=== PATIENT | female | born 1980 | race Caucasian/White ===

== ENCOUNTER → 2022-05-16 09:39 | Outpatient (CLI) | payer MEDICAID, SELFPAY ==
--- NOTE | ~2022-05-16 | MR_ITS ---
EXAMINATION: MR abdomen wo/w con DATE: 05/16/2022 11:27 INDICATION: Abdominal pain TECHNIQUE: Magnetic resonance imaging (MRI) of the abdomen was performed without and with 12 mL Multi ace intravenous contrast. Sequences included coronal T2-weighted SS-FSE, coronal and axial FS 2D-F IESTA, axial STIR FSE, axial T2-weighted SS-FSE, axial T2-weighted FS SS-FSE, axial diffusion-weighte d SE, axial dual-echo T1-weighted FSPGR, and axial and coronal T1-weighted LAVA. Postcontrast axial T 1-weighted LAVA images were obtained in a time course. Postcontrast coronal T1-weighted LAVA images w ere obtained. COMPARISON: None. FINDINGS: Heart size is normal. No pericardial or pleural effusion. Liver, gallbladder, spleen, pancreas, bilat eral adrenal glands and kidneys are normal. There is irregular enhancing wall thickening along a segm ent of sigmoid colon concerning for colon cancer with differential including focal colitis/diverticul itis. No dilated bowel to suggest obstruction. Fat-containing umbilical hernia. 3.8 x 3.1 cm peripher ally enhancing centrally nonenhancing cavitary presacral mass seen on the coronal images. 2.6 cm righ t ovarian cyst/follicle. No pathologically enlarged abdominal lymphadenopathy. Mild lumbar spondylosi s. IMPRESSION: 1. Segmental wall thickening along the sigmoid colon suspicious for colon cancer with differential in cluding focal colitis/diverticulitis. Recommend colonoscopy for further evaluation. 2. Indeterminate 3.8 cm peripherally enhancing centrally cavitary lesion anterior to the sacrum poten tially metastatic disease or abscess. 3. Fat-containing umbilical hernia. Reviewed, dictated and finalized at location B. IMPRESSION: 1. Segmental wall thickening along the sigmoid colon suspicious for colon cance r with differential including focal colitis/diverticulitis. Recommend colonosco py for further evaluation. 2. Indeterminate 3.8 cm peripherally enhancing centrally cavitary lesion anteri or to the sacrum potentially metastatic disease or abscess. 3. Fat-containing umbilical hernia.
--- NOTE | ~2022-05-16 | MR_ITS ---
MRI of the pelvis CLINICAL HISTORY: Left adnexal mass TECHNIQUE: T2-weighted images, and coronal T2-weighted and T2 fat-sat images were performed. Axial T2 -weighted, T2 fat-sat, T1-weighted, T1 fat-sat, and diffusion-weighted images were performed. Followi ng intravenous administration of 12 cc MultiHance gadolinium, T1-weighted fat-sat imaging was perform ed in the axial and coronal planes. FINDINGS: There is a 3.6 x 3.0 x 3.5 cm rounded mass in the presacral region, just anterior to the S1 vertebral body (series 17 image 19). This is T1 hypointense, and of intermediate signal intensity on T2-weighted images. There is minimal if any postcontrast enhancement evident. Incidentally noted is apparent circumferential wall thickening at the distal sigmoid colon/proximal r ectum (series 19 images 17-20 for example), suspicious for colonic adenocarcinoma. Uterus is anteverted. Several small intramural fibroids are present, largest at the posterior wall me asuring 2.1 cm in diameter. No distinct junctional zone thickening seen. No abnormal endometrial thic kening evident. Small bilateral ovarian/adnexal cysts are present, largest on the right side measuring 2 cm in diamet er. No ascites. Urinary bladder unremarkable. Visualized osseous structures are intact. Visualized bowel loops unrema rkable. IMPRESSION: 3.6 x 3.0 x 3.5 cm presacral mass, which correlates with finding on recent outside ultrasound. Given additional finding of circumferential wall thickening at the distal sigmoid colon/proximal rectum, fi ndings are most suspicious for colonic adenocarcinoma with associated metastatic presacral lesion. Small uterine fibroids, as above. Reviewed, dictated and finalized at [facility]. IMPRESSION: 3.6 x 3.0 x 3.5 cm presacral mass, which correlates with finding on recent outs reece ultrasound. Given additional finding of circumferential wall thickening at the distal sigmoid colon/proximal rectum, findings are most suspicious for colo humberto adenocarcinoma with associated metastatic presacral lesion. Small uterine fibroids, as above.
== END ==
PROVIDERS: PCP Obstetrics & Gynecology; Visit Provider Obstetrics & Gynecology
DX: N94.89 Other specified conditions associated with female genital organs and menstrual cycle (principal); R10.9 Unspecified abdominal pain; R93.5 Abnormal findings on diagnostic imaging of other abdominal regions, including retroperitoneum; K42.9 Umbilical hernia without obstruction or gangrene; D25.9 Leiomyoma of uterus, unspecified
CPT/HCPCS: 72197; 74183; A9577

== ENCOUNTER 2022-05-23 01:15 | Day surgery (SDC) | payer MEDICAID, SELFPAY ==
[2022-05-11 13:34] VITALS: BMI 23.9
[2022-05-23 12:20] VITALS: BP 135/92; PULSE 80; RESP 16; TEMP 36.3; O2SAT 100
[2022-05-23] MEDS: LACTATED RINGERS 1,000 ML 150 ML IV CONT (12:36)
--- NOTE | 2022-05-23 12:55 | WPDANESEPPF ---
Anes - Initial Pre Proc Eval Procedure: Operation Date: 05/23/22 13:30 Proposed Procedures p Colonoscopy - Reagan Cesar MD Date/Time: 05/23/22 12:55 Surgeon: Reagan Cesar MD Pre Op Diagnosis: pelvic and perineal pain Patient Data Age: 42 Gender: F Height: 1.6 m Weight: 57.9 kg Last Vital Signs Temp 97.4 F L 05/23/22 12:20 Pulse 80 05/23/22 12:20 Resp 16 05/23/22 12:20 BP 135/92 H 05/23/22 12:20 Pulse Ox 100 05/23/22 12:20 O2 Del Method Room Air 05/23/22 12:20 Allergies Allergy/AdvReac Type Severity Reaction Status Date / Time No Known Allergies Allergy Unknown Verified 05/23/22 12:17 Home Medications Medication Instructions Recorded Confirmed Type multivitamin (Multiple Vitamins 1 tablet PO DAILY 06/23/21 05/23/22 History tablet) drospirenone (contraceptive) 4 mg 1 tablet PO DAILY #28 tabs 05/06/22 05/23/22 Rx (28) tablet (Slynd) Patient hx anesthesia problems: none Family hx anesthesia problems: none Results Review: All pre-operative results and documents have been reviewed as part of the pre-operative evaluation. [facility] Past Medical History Medical History (Updated 05/11/22 @ 11:17 by Dm Trujillo) Abdominal pain Abnormal Pap smear of cervix 08/14/12 ASCUS (+) HPV - RECURRENT ABNORMAL HX Bone infection (~1979) Encounter for IUD insertion 03/02/07 Mirena insertion 02/15/12 Mirena removal/reinsertion-- IUD 12/28/17 Mirena removal/reinsertion-- IUD Encounter for IUD removal 02/15/12 Mirena removal/reinsertion-- IUD 12/28/17 Mirena removal/reinsertion-- IUD 07/17/18 Mirena removal Lymph node abscess (~1980) Miscarriage 06/04/05 suction d&c Screening mammogram, encounter for Staph infection (~09/2002) finger Surgical History Surgical History History of colposcopy with cervical biopsy 07/21/11 Family History Family History (Updated 04/20/22 @ 14:38 by KIT Castillo) Grandparent Diabetes mellitus maternal grandmother Hypertension maternal grandfather Carcinoma of colon maternal grandfather Father Alcohol abuse Cirrhosis of liver Other Malignant neoplasm of prostate Social History Social History Smoking status: Never smoker Alcohol intake: current Drinks per week: 2 Substance use: never Substance use type: does not use Living arrangements: with family Additional living arrangements comments: Occupation/Education: occupation 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 Gender identity (if verbalized by the patient): Female Sexual Orientation (if Verbalized by the Patient): Straight or Heterosexual Anes - Eval Final PreProcedure Day of Procedure 05/23/22 12:55 Patient weight: normal Heart: regular rate and rhythm Lungs: clear to auscultation Airway: Mallampati scale class II Neurological: alert and oriented Last oral intake: >/= 8 hours ASA classification: I Emergent: no Anesthetic plan: proceed Anesthesia type and monitoring: general GIVS and standard monitoring Results Review: All pre-operative results and documents have been reviewed as part of the pre-operative evaluation. Informed Consent: The patient's anesthetic plan and its attendant risks and benefits were discussed with the patient/family/POA. Questions were solicited and answers provided to the satisfaction of the patient/family/POA.
--- NOTE | 2022-05-23 13:07 | PM.HPGS ---
History of Present Illness History of Present Illness Consent: Risks, benefits, and alternatives have been discussed and questions answered. Patient agrees to proceed with procedure. Chief complaint: pelvic and perineal pain Narrative: Rodney Schultz is a 42 year old female pelvic pain, evaluated by [facility] and had MRI that showed segmental wall thickening along the sigmoid colon suspicious for colon cancer with differential including focal colitis/diverticulitis. Recommend colonoscopy for further evaluation. Never had colonoscopy Review of Systems Constitutional: Constitutional: Denies headache(s) and Denies weakness Eyes: Eyes: Denies blurry vision ENT: Reports Normal hearing present, Denies headache(s) and Denies neck pain Cardiovascular: Cardiovascular: Denies chest pain and Denies dyspnea Respiratory: Respiratory: Denies dyspnea Gastrointestinal: Gastrointestinal: Reports no additional gastrointestinal complaints Genitourinary: Genitourinary: Denies dysuria Musculoskeletal: Musculoskeletal: Denies neck pain Integumentary/Breasts: Skin/Breast: Denies dry skin Neurologic: Reports Normal hearing present, Denies headache(s) and Denies weakness Psychiatric: Psychiatric: Denies anxiety Endocrine: Endocrine: Denies change in body appearance Hematologic/Lymphatic: Hematologic/Lymphatic: Denies easy bleeding Allergic/Immunologic: Allergic/Immunologic: Denies urticaria PMFSH Past Medical History Medical History (Updated 05/23/22 @ 13:08 by Reagan Cesar MD) Abdominal pain Abnormal CT scan, colon Abnormal Pap smear of cervix 08/14/12 ASCUS (+) HPV - RECURRENT ABNORMAL HX Bone infection (~1979) Encounter for IUD insertion 03/02/07 Mirena insertion 02/15/12 Mirena removal/reinsertion-- IUD 12/28/17 Mirena removal/reinsertion-- IUD Encounter for IUD removal 02/15/12 Mirena removal/reinsertion-- IUD 12/28/17 Mirena removal/reinsertion-- IUD 07/17/18 Mirena removal Lymph node abscess (~1980) Miscarriage 06/04/05 suction d&c Screening mammogram, encounter for Staph infection (~09/2002) finger Surgical History Surgical History History of colposcopy with cervical biopsy 07/21/11 Family History Family History (Updated 04/20/22 @ 14:38 by KIT Castillo) Grandparent Diabetes mellitus maternal grandmother Hypertension maternal grandfather Carcinoma of colon maternal grandfather Father Alcohol abuse Cirrhosis of liver Other Malignant neoplasm of prostate Social History Social History Smoking status: Never smoker Alcohol intake: current Drinks per week: 2 Substance use: never Substance use type: does not use Living arrangements: with family Additional living arrangements comments: Occupation/Education: occupation 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 Gender identity (if verbalized by the patient): Female Sexual Orientation (if Verbalized by the Patient): Straight or Heterosexual Meds Home Medications and Allergies Home Medications Medication Instructions Recorded Confirmed Type multivitamin (Multiple Vitamins 1 tablet PO DAILY 06/23/21 05/23/22 History tablet) drospirenone (contraceptive) 4 mg 1 tablet PO DAILY #28 tabs 05/06/22 05/23/22 Rx (28) tablet (Slynd) Allergies Allergy/AdvReac Type Severity Reaction Status Date / Time No Known Allergies Allergy Unknown Verified 05/23/22 12:17 Vital Signs Vital Signs - 24 hr 05/23/22 12:20 Temperature 97.4 F L Pulse Rate 80 Respiratory Rate 16 Blood Pressure 135/92 H Pulse Oximetry 100 Oxygen Delivery Room Air Exam Const: General: comfortable and no acute distress HENMT: Face/Nose/Sinus: Normal nares present Eyes: General: appearance normal, both eyes and all related structures
[2022-05-23 13:29] VITALS: BP 117/81; PULSE 82; RESP 20; O2SAT 100
[2022-05-23 13:39] VITALS: BP 127/87; PULSE 70; RESP 20; O2SAT 100
[2022-05-23 13:49] VITALS: BP 139/94; PULSE 70; RESP 20; O2SAT 100
[2022-05-23 14:16] LABS: Hematocrit 34.3 % (37.0-47.0); Hemoglobin 10.7 g/dL (12.0-15.0); Mean Corpuscular HGB Conc 31.2 g/dl (32-36); Mean Corpuscular Hemoglobin 24.7 pg (26-34); Platelet Count Result 435 k/mm3 (150-375); Red Blood Count 4.34 M/mm3 (4.2-5.4); White Blood Count 4.8 K/mm3 (4.5-10.0)
[2022-05-23 14:27] LABS: Alanine Aminotransferase 20 U/L (6-35); Albumin Level 4.6 g/dL (3.5-5.1); Alkaline Phosphatase 83 U/L (38-126); Anion Gap 9 mmol/L (8-16); Aspartate Amino Transferase 24 U/L (14-36); Bilirubin,Total 0.8 mg/dL (0.2-1.3); Blood Urea Nitrogen 14 mg/dL (7-17); Calcium 8.9 mg/dL (8.4-10.2); Carbon Dioxide 22 mmol/L (22-30); Chloride 105 mmol/L (98-107); Estimated CRCL calculation 84 ml/min; Estimated Glomerular Filt Rate > 60; Glucose 81 mg/dL (65-110); Potassium 4.3 mmol/L (3.4-5.0); Sodium 136 mmol/L (137-145)
[2022-05-23 14:58] LABS: Carcinoembryonic Antigen 33.4 ng/mL (0.0-3.0)
[2022-05-23 15:36] LABS: INR 1.2; Prothrombin Time 14.5 Seconds (11.1-14.7)
== END 2022-05-23 14:11 | disposition home or self-care (01) ==
PROVIDERS: Visit Provider Internal Medicine Gastroenterology
PROC: 0DJD8ZZ Inspection of Lower Intestinal Tract, Via Natural or Artificial Opening Endoscopic (ICD-10-PCS; CPT 45378; principal; 2022-05-23 13:30)
DX: C18.7 Malignant neoplasm of sigmoid colon (principal)
CPT/HCPCS: 45335; 45331; 36415; 80053; 82378; 85027; 85610; 88305; J2704; J7120

== ENCOUNTER 2022-05-30 07:49 | Outpatient (CLI) | payer MEDICAID, SELFPAY ==
--- NOTE | 2022-05-30 08:31 | ECG_ITS ---
Measurements Intervals [place] Rate: 66 P: 60 CA: 159 QRS: 10 QRSD: 99 T: 37 QT: 437 QTc: 458 Interpretive Statements SINUS RHYTHM POSSIBLE LEFT ATRIAL ENLARGEMENT [- INCOMPLETE RIGHT BUNDLE BRANCH BLOCK BASELINE ARTIFACT- I, II, III, AVR, AVL, AVF BORDERLINE ECG NO PREVIOUS ECG AVAILABLE FOR COMPARISON Electronically Signed On 05-30-2022 9:06:28 CDT by Álvaro Castellano D.O.
[2022-05-30 08:58] LABS: Hemoglobin 9.9 g/dL (12.0-15.0)
== END 2022-05-30 07:50 | disposition home or self-care (01) ==
PROVIDERS: Anesthesiology; Visit Provider Surgery
DX: C18.7 Malignant neoplasm of sigmoid colon (principal); I45.10 Unspecified right bundle-branch block
CPT/HCPCS: 36415; 85014; 85018; 86850; 86900; 86901; 93005

== ENCOUNTER 2022-06-01 15:41 | Inpatient (IN) | payer MEDICAID, SELFPAY ==
--- NOTE | 2022-05-30 07:33 | PC.NURSE ---
PRE-OP INSTRUCTIONS, PLEASE READ CAREFULLY Report to the Outpatient Waiting Room, entrance under the green pavilion located off [facility], at time _0900_ on date _06/01/22_. Planned Procedure Time: _1100_. PACK A SMALL OVERNIGHT BAG AND LEAVE IN THE CAR Time changes happen often and if your time is changed the preop area will call you the afternoon before. - You and your visitor will be asked to self-screen and do not enter if you have any COVID symptoms. - Only one visitor is requested with a max of two and NO children visitors are allowed at this time. - The patient visitor may be requested to leave or wait in car when not with patient due to distancing restrictions. - A mask is optional within the hospital at this time. -VISITING HOURS 8AM-8PM Patients may have clear liquids (water, carbonated beverages, clear teas, apple juice) until 3 hours prior to surgery (0800 AM) with a maximum of 20 ounces. - No food from midnight until time of surgery Take the following medications with a SIP of water the morning of surgery: _NONE_ DO NOT STOP ANY OF YOUR OTHER PRESCRIPTION MEDICATIONS PRIOR TO SURGERY ?EXCEPT THE FOLLOWING Medications to discontinue per ANESTHESIA - _MULTIVITAMIN, PT STATES LAST DOSE 05/29/22_ Medications to discontinue - _EXCEDRIN PER DR. MONCADA' INSTRUCTIONS_ Please no make-up, nail micronesian, hairspray, perfume, deodorant, or body powder the day of surgery. No jewelry (including any body piercings) or valuables the day of surgery, leave them at home. Please take a shower or bath the night before, or the morning of, surgery with an antibacterial soap. Wear comfortable, loose fitting clothing. - Jewelry must be removed prior to entering the operating room. Rings and piercings that are not removed may be cut off. - The hospital will not accept responsibility for valuables. - Please leave all valuables, including medications, at home the day of surgery. If you are going home after surgery, a licensed delivery driver must drive you home. - NO public transportation without another adult if you receive anesthesia. - We recommend that an adult stay with you for 24 hours following discharge. - We also recommend that you do not drive, make important decision, drink alcoholic beverages, or take any drugs that were not prescribed by your health care provider for at least 24 hours after your discharge time. For Pediatric surgeries, we recommend two adults accompany the child home. Follow any additional instructions given to you from your surgeon. DIET/ENSURE BUNDLE, BOWEL PREP, IF ANY PRE-OP ANTIBIOTICS, HIBICLENS SHOWER DAY BEFORE AND AM OF SURGERY If you or anyone in your household have experienced Covid symptoms in the past week, please notify your surgeon or the nurse liaison at the phone number below for possible testing. Instructions given to _PATIENT_and asked if any additional questions and then verbalized understanding. Patient advised to call surgeon office or pre surgery nurse liaison [phone] if any additional questions.
[2022-05-30 08:15] VITALS: BP 136/84; PULSE 66; RESP 18; TEMP 36.9; O2SAT 100; BMI 23.9
[2022-06-01] VITALS (14 sets, daily range): BP systolic 97–137; BP diastolic 55–89; PULSE 61–89; RESP 12–20; TEMP 35.8–36.9; O2SAT 97–100
[2022-06-01] MEDS: LACTATED RINGERS 1,000 ML 30 ML IV CONT ×2 (09:30→14:03)
[2022-06-01] MEDS: ACETAMINOPHEN 500 MG TABLET 1000 MG PO (09:30)
--- NOTE | 2022-06-01 10:33 | WPDANESEPPF ---
Anes - Initial Pre Proc Eval Procedure: Operation Date: 06/01/22 11:00 Proposed Procedures p Hand Assisted Laparoscopic Sigmoidectomy - Shahnaz Hathaway MD Date/Time: 06/01/22 10:33 Surgeon: Shahnaz Hathaway MD Pre Op Diagnosis: sigmoid colon CA Patient Data Age: 42 Gender: F Height: 1.6 m Weight: 59.6 kg Last Vital Signs Temp 97.7 F 06/01/22 09:43 Pulse 73 06/01/22 09:43 Resp 16 06/01/22 09:43 BP 130/89 06/01/22 09:43 Pulse Ox 100 06/01/22 09:43 O2 Del Method Room Air 06/01/22 09:43 Allergies Allergy/AdvReac Type Severity Reaction Status Date / Time No Known Allergies Allergy Unknown Verified 06/01/22 09:09 Home Medications Medication Instructions Recorded Confirmed Type multivitamin (Multiple Vitamins 1 tablet PO DAILY 06/23/21 06/01/22 History tablet) drospirenone (contraceptive) 4 mg 1 tablet PO DAILY #28 tabs 05/06/22 06/01/22 Rx (28) tablet (Slynd) ekvgaop-tgdovgpzghyps-vqykufck 250 3 tablet PO Q4-6H PRN Migraine 05/30/22 06/01/22 History mg-250 mg-65 mg tablet (Excedrin Headache Migraine) ciprofloxacin HCl 500 mg tablet 500 mg PO .COMPLEX #1 tablet 05/30/22 06/01/22 Rx metronidazole 500 mg tablet 500 mg PO .COMPLEX #3 tabs 05/30/22 06/01/22 Rx Patient hx anesthesia problems: none Family hx anesthesia problems: none Results Review: All pre-operative results and documents have been reviewed as part of the pre-operative evaluation. [facility] Past Medical History Medical History (Updated 05/25/22 @ 09:34 by Graciela Barnes [facility]) Abdominal pain Abnormal CT scan, colon Abnormal Pap smear of cervix 08/14/12 ASCUS (+) HPV - RECURRENT ABNORMAL HX Bone infection (~1979) Bowel habit changes Colonic mass Encounter for IUD insertion 03/02/07 Mirena insertion 02/15/12 Mirena removal/reinsertion-- IUD 12/28/17 Mirena removal/reinsertion-- IUD Encounter for IUD removal 02/15/12 Mirena removal/reinsertion-- IUD 12/28/17 Mirena removal/reinsertion-- IUD 07/17/18 Mirena removal Lymph node abscess (~1980) Miscarriage 06/04/05 suction d&c Screening mammogram, encounter for Staph infection (~09/2002) finger Surgical History Surgical History (Updated 05/25/22 @ 09:03 by Brenda Schuster) History of colposcopy with cervical biopsy 07/21/11 History of D&C Family History Family History Grandparent Diabetes mellitus maternal grandmother Hypertension maternal grandfather Carcinoma of colon maternal grandfather Father Alcohol abuse Cirrhosis of liver Other Malignant neoplasm of prostate Social History Social History Smoking status: Never smoker Second hand tobacco smoke exposure: No Alcohol intake: current Drinks per week: 2 Substance use: never Substance use type: does not use Living arrangements: with family Additional living arrangements comments: Occupation/Education: occupation 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 Gender identity (if verbalized by the patient): Female Sexual Orientation (if Verbalized by the Patient): Straight or Heterosexual Spiritual care concerns: No Anes - Eval Final PreProcedure Day of Procedure 06/01/22 10:33 Patient weight: normal Heart: regular rate and rhythm Lungs: clear to auscultation Airway: Mallampati scale class II Neurological: alert and oriented Last oral intake: >/= 8 hours ASA classification: III Emergent: no Anesthetic plan: proceed Anesthesia type and monitoring: general ETT and standard monitoring Results Review: All pre-operative results and documents have been reviewed as part of the pre-operative evaluation. Informed Consent: The patient's anesthetic plan and its attendant risks and benefits were discussed with the patient/family/POA. Questions were solicited and ans
--- NOTE | 2022-06-01 10:37 | WPDHPUPDATE1 ---
History and Physical Update Update Date/Time: 06/01/22 10:37 History and Physical has been reviewed, including an updated exam of the patient. There are NO changes in the patient's condition. Risks, benefits, and alternatives have been discussed and questions answered. Patient agrees to proceed with procedure.
[2022-06-01] MEDS: KETOROLAC 15 MG/ML VIAL (*BKC) IV PUSH (10:49)
[2022-06-01] MEDS: metroNIDAZOLE 500 MG/ISO 100ML 500 MG/100 ML BAG 100 MG IVPB (10:59)
[2022-06-01] MEDS: ceFAZolin 2 GM/D5W 50 ML 2 GM/50 ML BAG IVPB ×2 (10:59→18:13)
[2022-06-01] MEDS: BUPIVACAINE/EPINEPHRINE 0.25% 50 ML VIAL INFILTRATE (11:46)
--- NOTE | 2022-06-01 14:04 | W.PM.PROC2 ---
Procedure Note - Detailed Date of Procedure 06/01/22 Pre-op Diagnosis sigmoid colon cancer Post-op Diagnosis Same Procedure Performed hand assisted laparoscopic sigmoid colectomy, repair of incarcerated umbilical hernia Surgeon Shahnaz Hathaway MD Synthetic Staple Extruder Harsh Anesthesia General Indications 42-year-old female with biopsy confirmed nearly obstructing sigmoid colon cancer found on colonoscopy Findings sigmoid colon cancer at approximately 20 cm from the anal verge, area was tattooed Description of Procedure The patient was taken to the operating room and placed in the modified lithotomy position. After adequate induction of general anesthesia, the patient was prepped and draped in the normal sterile fashion. A time-out was then done to verify the patient's identity, as well as the procedure being performed. Please note that Dr. House was present for the majority of the case and participated in all hemphill aspects including dissection, resection, and anastomosis. I began by making a hand port incision around the umbilicus. There was a noted incarcerated umbilical hernia that was reduced at this point. This incision was carried down into the peritoneal cavity and no adhesions were noted. At this point, the hand port was placed and the abdomen was insufflated. I then placed a trocar through this site and under direct visualization placed a 5 mm and 12 mm ports in the right lower abdomen. There were some adhesions of the small bowel to the pelvis and these were taken down with the LigaSure device. I was then able to sweep the small bowel out of the operative field. I then identified the mass in the sigmoid colon. This was noted to be in the distal sigmoid approximately 20 cm from the anal verge. We used a medial to lateral approach 1st identifying the left colic vessels. The left colic vessels were identified at the base the mesentery. I was able to visualize the left ureter at this point as well and this was dissected posteriorly and out of the way. I then did a high ligation of the MARLYS coming off the aorta using the LigaSure device. I then carried this dissection plane inferiorly to the level of the distal sigmoid upper rectum. I was able to carry this plane by dissecting the retroperitoneal structures posteriorly. Once the medial dissection was complete, I then dissected laterally by taking down the white line of Toldt. We then proceeded to dissect around the area of the distal sigmoid and upper rectum. A total mesorectal plane was created to free this area and dissect the upper rectum, distal sigmoid. I was then able to get around circumferentially in the distal sigmoid upper rectal area. I then transected the distal sigmoid with upper rectum using a echelon stapler. Of note this did take 2 staple loads. At this point I was able to extracorporealyze the specimen. I then again was able to identify the mass and noted adequate distal colon to this area. I then used ICG to identify the proximal blood supply. I then found an area proximal to the mass of approximately 10 cm as our proximal resection margin. Again, this area was noted to be viable and have good blood supply via ICG. This area was then transected and the specimen was sent for pathology. I then prepared the proximal colon for our colorectal anastomosis. Using the EEA sizers, it was noted a 28 EEA stapler would be used for the anastomosis. I then used a auto pursestring device after transecting the proximal colon and placing the 28 anvil in the proximal colon. We then reinsufflated the abdomen and noted adequate length of the proximal colon for our anastomosis. The rectum was then dilated 1st digitally then with the EEA sizers. Once adequately done, the 28 EEA stapler was placed through the rectum and brought out through the middle of the previous staple line. I then completed a 28 EEA colorectal anastomosis. We then did an air leak test using the proctoscope and no leak was note
[2022-06-01] MEDS: fentaNYL CITRATE INJ (*CRX) 100 MCG/2 ML VIAL 25 MCG IV PUSH ×2 (14:32→14:35)
[2022-06-01] MEDS: ONDANSETRON INJ 4 MG/2 ML VIAL IV PUSH ×2 (14:42→18:13)
[2022-06-01] MEDS: SCOPOLAMINE 1.5 MG PATCH TRANSDERM (14:55)
[2022-06-01] MEDS: diphenhydrAMINE HCl INJ 50 MG/ML VIAL 25 MG IV PUSH (14:55)
--- NOTE | 2022-06-01 16:08 | ADMGEN ---
This patient, Rodney Schultz, was admitted to [facility] Surg Room 300-01. Patient/family oriented to hospital policies and general routines including ID bracelet, bed and alarms, visiting hours, pain management, procedures, bathroom and other care routines, personal items, smoking policy, room service/diet, and visiting hours. Information on how to activate the Rapid Response Team has been discussed. Patient/Family are encouraged to report perceived risks to care and to ask questions if they do not understand what they are told or what they should do.
[2022-06-01] MEDS: LACTATED RINGERS 1,000 ML 100 ML IV CONT (16:34)
[2022-06-01] MEDS: HYDROcodone/acetaminophen (*CRX) 5-325 MG TABLET 2 TAB PO (18:13)
[2022-06-02] MEDS: HYDROcodone/acetaminophen (*CRX) 5-325 MG TABLET 2 TAB PO ×4 (00:49→20:08)
[2022-06-02] MEDS: ceFAZolin 2 GM/D5W 50 ML 2 GM/50 ML BAG IVPB (02:59)
[2022-06-02] MEDS: LACTATED RINGERS 1,000 ML 100 ML IV CONT ×2 (02:59→13:08)
[2022-06-02 06:08] VITALS: BP 105/65; PULSE 58; RESP 16; TEMP 37; O2SAT 98
[2022-06-02 06:25] LABS: Basophils Percent Auto 0.6 % (0.2-1.2); Eosinophils Percent Auto 0.3 % (0-4.4); Hemoglobin 8.8 g/dL (12.0-15.0); Immature Granulocyte Absolute 0.08 K/mm3 (0.00-0.031); Immature Granulocyte Percent A 1.2 % (0-0.5); Lymphocytes Absolute Auto 1.13 K/mm3 (0.9-3.2); Lymphocytes Percent Auto 16.4 % (18.3-44.2); Mean Corpuscular HGB Conc 30.3 g/dl (32-36); Mean Corpuscular Hemoglobin 24.2 pg (26-34); Mean Corpuscular Volume 79.7 fl (80-100); Mean Platelet Volume 9.9 fl (7.4-10.4); Monocytes Absolute Auto 0.5 K/mm3 (0.1-0.6); Monocytes Percent Auto 7.7 % (2.6-8.5); Neutrophils Absolute Auto 5.1 K/mm3 (1.3-6.7); Neutrophils Percent Auto 73.8 % (45.5-73.1); Platelet Count Result 328 k/mm3 (150-375); Red Blood Count 3.64 M/mm3 (4.2-5.4); Red Cell Distribution Width 16.5 % (11.5-14.5); White Blood Count 6.9 K/mm3 (4.5-10.0)
[2022-06-02 06:47] LABS: Anion Gap 5 mmol/L (8-16); Blood Urea Nitrogen 8 mg/dL (7-17); Calcium 7.9 mg/dL (8.4-10.2); Carbon Dioxide 27 mmol/L (22-30); Chloride 103 mmol/L (98-107); Estimated CRCL calculation 84 ml/min; Estimated Glomerular Filt Rate > 60; Glucose 89 mg/dL (65-110); Potassium 3.6 mmol/L (3.4-5.0); Sodium 135 mmol/L (137-145)
[2022-06-02 08:00] VITALS: BP 107/66; PULSE 68; RESP 18; TEMP 36.7; O2SAT 100
[2022-06-02] MEDS: PANTOPRAZOLE 40 MG TABLET PO (08:05)
[2022-06-02] MEDS: ENOXAPARIN 40 MG/0.4 ML SYRINGE SUB-Q (08:05)
--- NOTE | 2022-06-02 09:46 | WPDANESPN ---
Anes - Prog Note Post-Op Date/Time: 06/02/22 09:46 Cardiovascular status: normal Respiratory status: normal Airway patency: baseline Mental status: baseline Post-Op hydration status: normal Vital Signs: Last Vital Signs Temp 36.7 C 06/02/22 08:00 Pulse 68 06/02/22 08:00 Resp 18 06/02/22 08:00 BP 107/66 06/02/22 08:00 Pulse Ox 100 06/02/22 08:00 O2 Del Method Room Air 06/02/22 08:00 O2 Flow Rate 6 06/01/22 14:15 Pain Score (VAS): 05/13 I/O: Intake & Output 06/01/22 06/02/22 06/02/22 23:59 07:59 15:59 Intake Total 110 1000 Output Total 1750 400 Balance 110 -750 -400 Laboratory Tests 06/02/22 05:21 06/02/22 05:21 06/02/22 06/02/22 05:21 05:21 WBC 6.9 RBC 3.64 L Hgb 8.8 L Hct 29.0 L MCV 79.7 L MCH 24.2 L MCHC 30.3 L RDW 16.5 H Plt Count 328 MPV 9.9 Immature Gran % (Auto) 1.2 H Neut % (Auto) 73.8 H Lymph % (Auto) 16.4 L [place] % (Auto) 7.7 Eos % (Auto) 0.3 Baso % (Auto) 0.6 Lymph # (Auto) 1.13 [place] # (Auto) 0.5 Eos # (Auto) 0.0 Baso # (Auto) 0.0 Abs Immat Gran (auto) 0.08 H Absolute Neuts (auto) 5.1 Absolute Nucleated RBC 0.0 Nucleated RBC % 0.0 Sodium 135 L Potassium 3.6 Chloride 103 Carbon Dioxide 27 Anion Gap 5 L BUN 8 D Creatinine 0.60 L Estim Creat Clear Calc 84 Estimated GFR > 60 Glucose 89 Calcium 7.9 L Post-procedural complaints: none Patient Feedback: Patient satisfied with anesthetic care.
--- NOTE | 2022-06-02 10:18 | PM.PNGS ---
Progress Note: A&P Assessment and Plan (1) Cancer of sigmoid colon: Code(s): C18.7 - Malignant neoplasm of sigmoid colon Status: Acute Assessment and Plan: doing well, ADAT, encourage OOB/IS, await path Subjective Subjective Date/Time Seen: 06/02/22 10:18 feels pretty good, some incisional pain, +BM overnight Review of Systems Review of Systems: All systems reviewed & are unremarkable except as noted in HPI and below Exam Const: General: cooperative, comfortable and no acute distress Resp: Auscultation: clear to auscultation bilaterally Cardio: Rate: regular rate Rhythm: regular rhythm GI: Inspection: normal to inspection, distended and incision GI Palp: Yes abdominal tenderness, Yes Soft to palpation, Yes Tenderness to palpation present (GI), No Guarding due to palpation present (GI) and No Rigid due to palpation Objective Data Vital Signs Vital Signs: Vital Signs - 24 hr 06/01/22 14:03 06/01/22 14:15 06/01/22 14:30 Temperature 36.4 C Pulse Rate 84 75 73 Respiratory Rate 12 12 12 Blood Pressure 110/64 114/69 120/69 Pulse Oximetry 100 100 98 Oxygen Delivery Simple Face Mask Simple Face Mask Room Air Oxygen Flow Rate 6 6 06/01/22 14:45 06/01/22 15:00 06/01/22 15:15 Temperature Pulse Rate 68 75 62 Respiratory Rate 12 12 12 Blood Pressure 101/57 L 102/55 L 97/62 L Pulse Oximetry 97 97 100 Oxygen Delivery Room Air Room Air Room Air Oxygen Flow Rate 06/01/22 15:30 06/01/22 15:56 06/01/22 15:56 Temperature 36.0 C L 36.0 C L Pulse Rate 61 78 78 Respiratory Rate 12 17 17 Blood Pressure 111/63 110/61 110/61 Pulse Oximetry 100 100 100 Oxygen Delivery Room Air Oxygen Flow Rate 06/01/22 16:15 06/01/22 16:45 06/01/22 17:45 Temperature 35.8 C L 36.1 C L 36.3 C L Pulse Rate 67 67 89 Respiratory Rate 20 18 16 Blood Pressure 125/78 136/83 137/77 Pulse Oximetry 100 98 100 Oxygen Delivery Oxygen Flow Rate 06/01/22 21:26 06/01/22 22:14 06/02/22 06:08 Temperature 36.9 C 37.0 C Pulse Rate 73 73 58 L Respiratory Rate 16 16 16 Blood Pressure 127/73 105/65 Pulse Oximetry 100 100 98 Oxygen Delivery Room Air Oxygen Flow Rate 06/02/22 08:00 06/02/22 08:00 Temperature 36.7 C Pulse Rate 68 Respiratory Rate 18 Blood Pressure 107/66 Pulse Oximetry 100 Oxygen Delivery Room Air Oxygen Flow Rate Intake/Output Intake/Output: Intake & Output 05/30/22 05/31/22 06/01/22 06/02/22 23:59 23:59 23:59 23:59 Intake Total 310 1000 Output Total 30 2150 Balance 280 -1150 Meds/Results Medications: Active Medications Generic Name Dose Route Start Last Admin Trade Name Freq PRN Reason Stop Dose Admin Hydrocodone Bitart/Acetaminophen 2 tab 06/01/22 15:41 06/02/22 08:06 Hydrocodone/Acetaminophen (*Crx) 5-325 Mg Tablet PO 2 tab Q4H PRN Administration Pain Rated 7-10 Alvimopan 12 mg 06/02/22 21:00 Alvimopan 12 Mg Capsule PO 06/09/22 20:59 Q12HR DIANA Enoxaparin Sodium 40 mg 06/02/22 09:00 06/02/22 08:05 Enoxaparin 40 Mg/0.4 Ml Syringe SUB-Q 40 mg DAILY DIANA Administration Lactated Ringer's 1,000 mls @ 100 mls/hr 06/01/22 15:41 06/02/22 02:59 Lr - Lactated Ringers Iv IV CONT 100 mls/hr .Q10H DIANA Administration Morphine Sulfate 2 mg 06/01/22 15:41 Morphine Sulfate (*Crx) 2 Mg/Ml Inj IV PUSH Q2H PRN Pain Rated 4-6 Morphine Sulfate 4 mg 06/01/22 15:41 Morphine Sulfate (*Crx) 4 Mg/Ml Inj IV PUSH Q2H PRN Pain Rated 7-10 Naloxone HCl 0.1 mg 06/01/22 15:41 Naloxone Hcl 0.4 Mg/Ml Vial IV PUSH Q2M PRN Opiate Reversal Ondansetron HCl 4 mg 06/01/22 15:41 06/01/22 18:13 Ondansetron Inj 4 Mg/2 Ml Vial IV PUSH 4 mg Q4H PRN Administration Nausea And Vomiting Pantoprazole Sodium 40 mg 06/02/22 09:00 06/02/22 08:05 Pantoprazole 40 Mg Tablet PO 40 mg QAM [facility] Administration Labs Labs: Laboratory Results - last 24 hr
--- NOTE | 2022-06-02 10:29 | PCCCNOTE ---
On 06/02/22, the student, [Shea Morrison], provided care and completed [facility] documentation on this patient. I have reviewed the student's documentation and agree with the findings.
[2022-06-02 11:49] VITALS: BP 114/74; PULSE 72; RESP 18; TEMP 36.7; O2SAT 99
[2022-06-02 16:23] VITALS: BP 109/69; PULSE 73; RESP 18; TEMP 36.5; O2SAT 99
[2022-06-02] MEDS: ALVIMOPAN 12 MG CAPSULE PO (21:20)
[2022-06-02 21:23] VITALS: BP 119/78; PULSE 68; RESP 16; TEMP 36.6; O2SAT 100
[2022-06-03] MEDS: HYDROcodone/acetaminophen (*CRX) 5-325 MG TABLET 2 TAB PO ×2 (03:25→08:19)
[2022-06-03 06:00] VITALS: BP 112/78; PULSE 69; RESP 16; TEMP 36.7; O2SAT 100
[2022-06-03] MEDS: ALVIMOPAN 12 MG CAPSULE PO (08:19)
[2022-06-03] MEDS: PANTOPRAZOLE 40 MG TABLET PO (08:19)
[2022-06-03] MEDS: ENOXAPARIN 40 MG/0.4 ML SYRINGE SUB-Q (08:19)
[2022-06-03 10:09] VITALS: O2SAT 97
--- NOTE | 2022-06-03 11:21 | PM.DS ---
DS: Admitting Diagnosis Discharge Date 06/03/2022 Admitting Diagnosis obstructing sigmoid colon cancer DS: Discharge Diagnosis Discharge Diagnosis (1) Cancer of sigmoid colon: Code(s): C18.7 - Malignant neoplasm of sigmoid colon Status: Acute Assessment and Plan: status post resection, doing well, continue routine postoperative care, home with p.o. analgesia and Colace, await path, follow-up 2 weeks DS: Summary Hospital Course Reason for hospitalization: obstructing sigmoid colon cancer Hospital Course: The patient is a 42-year-old female presenting to the hospital with a nearly obstructing sigmoid colon cancer. Given these findings, the patient was urgently taken to the operating and hand assisted laparoscopic sigmoid colon resection was done. Please see full operative report for details of that procedure. Postoperatively, the patient did well and was transferred to the surgical floor. On postoperative day 1. , the patient was having bowel function and tolerating a clear liquid diet. She was up and ambulating without issue and her pain was controlled with p.o. analgesia. At this point her Nash was removed and she was voiding without difficulty. By postoperative day 2. , the patient is tolerating a regular diet and continues to have bowel function. She has been up and out of bed without issue and pain is well controlled. Status at Discharge Functional status at discharge: independent ambulation Overall status at discharge: patient is progressing back to baseline Time Spent with Patient Time attestation: Total time spent providing and/or coordinating discharge services: Time spent: Less than 30 minutes Exam Const: General: cooperative, comfortable and no acute distress Resp: Auscultation: clear to auscultation bilaterally Cardio: Rate: regular rate Rhythm: regular rhythm GI: Inspection: normal to inspection, non-distended and incision GI Palp: Yes abdominal tenderness, Yes Soft to palpation, Yes Tenderness to palpation present (GI), No Guarding due to palpation present (GI) and No Rigid due to palpation DS: Data Data Completed and Pending Pending studies at discharge: Pending at discharge 06/01/22 13:10 Surgical [PTH] Routine Discharge Plan Discharge Attending physician on discharge: Shahnaz Hathaway Discharging Clinician: Shahnaz Hathaway Patient Disposition: Home, Self-Care Activity: may shower and no straining Diet: as tolerated Wound Care Instructions: incision open to air Patient Instructions: Antibiotic Form Stand Alone Forms: General Discharge Information Follow-up/Referrals: Shahnaz Hathaway MD [Physician] - 2 Weeks Discharge Medications: New hydrocodone-acetaminophen 5-325 mg tablet 1 tablet PO Q6H PRN (Reason: pain) Qty: 30 0RF docusate sodium [Colace] 100 mg capsule 100 mg PO BID Qty: 30 0RF Continued multivitamin [Multiple Vitamins] Tablet 1 tablet PO DAILY Slynd 4 mg (28) tablet 1 tablet PO DAILY Qty: 28 3RF Excedrin Migraine 250-250-65 mg Tablet 3 tablet PO Q4-6H PRN (Reason: Migraine Headache) Discontinued ciprofloxacin HCl 500 mg tablet 500 mg PO .COMPLEX Qty: 1 0RF Rx Instructions: 500 mg orally at 2:00 p.m; metronidazole 500 mg tablet 500 mg PO .COMPLEX Qty: 3 0RF Rx Instructions: 500 mg orally at 1:00 pm, 2:00 pm, and 11:00 pm the day prior to your procedure; Date of admission: 06/01/22 15:41 Primary Care Provider: PHYSICIAN,LIQUID COMPOUNDER Admitting Provider: Shahnaz Hathaway Attending physician on admission: Shahnaz Hathaway Condition: Stable
--- NOTE | 2022-06-03 13:29 | PCCCNOTE ---
On 06/03/22, the student, [Stella Morrison], provided care and completed [facility] documentation on this patient. I have reviewed the student's documentation and agree with the findings.
== END 2022-06-03 12:10 | disposition home or self-care (01) | DRG 231 ==
LOC: ANH3MEDSUR 15:44
PROVIDERS: Admitting Provider Surgery; Visit Provider Surgery
PROC: 0D1E4Z4 Bypass Large Intestine to Cutaneous, Percutaneous Endoscopic Approach (ICD-10-PCS; principal; 2022-06-01 11:00)
DX: C18.7 Malignant neoplasm of sigmoid colon (principal); K42.9 Umbilical hernia without obstruction or gangrene
CPT/HCPCS: 36415; 80048; 85025; 88309; A9270; C1729; J0690; J1100; J1170; J1200; J1650; J1885; J2250; J2405; J2704; J2710; J3010; J7030; J7120

== ENCOUNTER 2022-07-04 01:38 | Day surgery (SDC) | payer OTHER, SELFPAY ==
[2022-07-01 15:22] VITALS: BMI 23.3
--- NOTE | 2022-07-01 15:23 | PC.NURSE ---
Report to the Outpatient Waiting Room, entrance under the green pavilion located off [facility], at time 1100 on date 07/04/22. Planned Procedure Time: 1300. Time changes happen often and if your time is changed the preop area will call you the afternoon before. - You and your visitor will be asked to self-screen and do not enter if you have any COVID symptoms. - A mask is optional within the hospital at this time. Patients may have clear liquids (water, carbonated beverages, clear teas, apple juice) until 3 hours prior to surgery with a maximum of 20 ounces. - No food from midnight until time of surgery Take the following medications with a SIP of water the morning of surgery: NONE DO NOT STOP ANY OF YOUR OTHER PRESCRIPTION MEDICATIONS PRIOR TO SURGERY?EXCEPT THE FOLLOWING Medications to discontinue per physician: N/A Date to take last dose: N/A Please no make-up, nail guatemalan, hairspray, perfume, deodorant, or body powder the day of surgery. No jewelry (including any body piercings) or valuables the day of surgery, leave them at home. Please take a shower or bath the night before, or the morning of, surgery with an antibacterial soap. Wear comfortable, loose fitting clothing. - Jewelry must be removed prior to entering the operating room. Rings and piercings that are not removed may be cut off. - The hospital will not accept responsibility for valuables. - Please leave all valuables, including medications, at home the day of surgery. If you are going home after surgery, a licensed substitute bus driver must drive you home. - NO public transportation without another adult if you receive anesthesia. - We recommend that an adult stay with you for 24 hours following discharge. - We also recommend that you do not drive, make important decision, drink alcoholic beverages, or take any drugs that were not prescribed by your health care provider for at least 24 hours after your discharge time. Follow any additional instructions given to you from your surgeon. If you or anyone in your household have experienced Covid symptoms in the past week, please notify your surgeon or the nurse liaison at the phone number below for possible testing. Telephone instructions given to PT - ARACELI PARHAM and asked if any additional questions and then verbalized understanding. Patient advised to call surgeon office or pre surgery nurse liaison [phone] if any additional questions.
--- NOTE | ~2022-07-04 | XR_ITS ---
EXAMINATION: XR fl guide central line place DATE: 07/04/2022 13:43 INDICATION: Port placement. TECHNIQUE: A single intraoperative fluoroscopic view of the chest was obtained. I was not present. Fl uoroscopy exposure time was 16 seconds. COMPARISON: None. FINDINGS: There is a left chest port with tip at superior cavoatrial junction. IMPRESSION: 1. Port tip at superior cavoatrial junction. Reviewed, dictated and finalized at location A.
--- NOTE | ~2022-07-04 | XR_ITS ---
EXAMINATION: XR chest port-a-cath/central Exam Date/Time: 07/04/2022 13:50 CDT HISTORY: POST INSERT JUAN CATH Comparison: Fluoroscopy guided central line placement, same date. RESULT: Lines, tubes, and devices: Left chest port, tip terminating at the distal SVC. Lungs and pleura: Clear. Cardiomediastinal silhouette: Unremarkable. Other: No acute osseous or upper abdominal finding. IMPRESSION: No acute cardiopulmonary process. Reviewed, dictated and finalized at location K.
--- NOTE | 2022-07-04 07:29 | PM.IMHP ---
H&P: HPI History of Present Illness Date/Time: 07/04/22 07:29 Chief Complaint: colon cancer Narrative: Pt is a 42 y/o F s/p L colectomy for colon cancer. Pt c positive lymph nodes and will need additional adjuvant therapy. Pt here for VAD placement. Pt denies previous central venous catheterization. Review of Systems Review of Systems: All systems reviewed & are unremarkable except as noted in HPI and below PMFSH Past Medical History Medical History Abdominal pain Abnormal CT scan, colon Abnormal Pap smear of cervix 08/14/12 ASCUS (+) HPV - RECURRENT ABNORMAL HX Bone infection (~1979) Bowel habit changes Colonic mass Encounter for IUD insertion 03/02/07 Mirena insertion 02/15/12 Mirena removal/reinsertion-- IUD 12/28/17 Mirena removal/reinsertion-- IUD Encounter for IUD removal 02/15/12 Mirena removal/reinsertion-- IUD 12/28/17 Mirena removal/reinsertion-- IUD 07/17/18 Mirena removal Lymph node abscess (~1980) Miscarriage 06/04/05 suction d&c Screening mammogram, encounter for Staph infection (~09/2002) finger Surgical History Surgical History History of colon surgery (06/01/22) removed 10 inches of sigmoid with umbilical hernia repair History of colposcopy with cervical biopsy 07/21/11 History of D&C S/P colectomy hand assisted laparoscopic sigmoid colectomy, repair of incarcerated umbilical hernia 06/01/22 Family History Family History Grandparent Diabetes mellitus maternal grandmother Hypertension maternal grandfather Carcinoma of colon maternal grandfather Father Alcohol abuse Cirrhosis of liver Other Malignant neoplasm of prostate Social History Social History Smoking status: Never smoker Second hand tobacco smoke exposure: No Alcohol intake: current Drinks per week: 2 Substance use: never Substance use type: does not use Lack of Transportation: No Lack of Food: Never True Current Housing: I Have Housing Concerned About Future Housing: No Difficulty Paying Gas/Electric Bills: No Difficulty Paying for Meds: No Currently Unemployed: No Education: Bachelor's Degree Difficulty w/ Childcare or Family Care: No Living arrangements: alone Additional living arrangements comments: Occupation/Education: occupation 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 Gender identity (if verbalized by the patient): Female Sexual Orientation (if Verbalized by the Patient): Straight or Heterosexual Spiritual care concerns: No Meds Home Medications and Allergies Home Medications Medication Instructions Recorded Confirmed Type drospirenone (contraceptive) 4 mg 1 tablet PO DAILY #28 tabs 05/06/22 07/01/22 Rx (28) tablet (Slynd) docusate sodium 100 mg capsule 100 mg PO BID #30 caps 06/03/22 07/01/22 Rx (Colace) Allergies Allergy/AdvReac Type Severity Reaction Status Date / Time No Known Allergies Allergy Unknown Verified 07/01/22 15:21 Exam Const: General: cooperative, comfortable and no acute distress Neck: Neck: normal visual inspection, full ROM and no lymphadenopathy Chest: Chest palpation & inspection: normal inspection of the chest Resp: Auscultation: clear to auscultation bilaterally Cardio: Rate: regular rate Rhythm: regular rhythm GI: Inspection: normal to inspection Assessment and Plan Assessment and plan (1) Adenocarcinoma of colon: Code(s): C18.9 - Malignant neoplasm of colon, unspecified Status: Acute Assessment and Plan: will setup for VAD placement for adjuvant treatment
--- NOTE | 2022-07-04 11:48 | WPDANESEPPF ---
Anes - Initial Pre Proc Eval Procedure: Operation Date: 07/04/22 13:00 Proposed Procedures p Insertion Lolita Cath - Shahnaz Hathaway MD Date/Time: 07/04/22 11:48 Surgeon: Shahnaz Hathaway MD Pre Op Diagnosis: malignant neoplasm of sigmoid colon Patient Data Age: 42 Gender: F Height: 1.6 m Weight: 59.6 kg Allergies Allergy/AdvReac Type Severity Reaction Status Date / Time No Known Allergies Allergy Unknown Verified 07/01/22 15:21 Home Medications Medication Instructions Recorded Confirmed Type drospirenone (contraceptive) 4 mg 1 tablet PO DAILY #28 tabs 05/06/22 07/01/22 Rx (28) tablet (Slynd) docusate sodium 100 mg capsule 100 mg PO BID #30 caps 06/03/22 07/01/22 Rx (Colace) Patient hx anesthesia problems: none Family hx anesthesia problems: none Results Review: All pre-operative results and documents have been reviewed as part of the pre-operative evaluation. [facility] Past Medical History Medical History Abdominal pain Abnormal CT scan, colon Abnormal Pap smear of cervix 08/14/12 ASCUS (+) HPV - RECURRENT ABNORMAL HX Bone infection (~1979) Bowel habit changes Colonic mass Encounter for IUD insertion 03/02/07 Mirena insertion 02/15/12 Mirena removal/reinsertion-- IUD 12/28/17 Mirena removal/reinsertion-- IUD Encounter for IUD removal 02/15/12 Mirena removal/reinsertion-- IUD 12/28/17 Mirena removal/reinsertion-- IUD 07/17/18 Mirena removal Lymph node abscess (~1980) Miscarriage 06/04/05 suction d&c Screening mammogram, encounter for Staph infection (~09/2002) finger Surgical History Surgical History History of colon surgery (06/01/22) removed 10 inches of sigmoid with umbilical hernia repair History of colposcopy with cervical biopsy 07/21/11 History of D&C S/P colectomy hand assisted laparoscopic sigmoid colectomy, repair of incarcerated umbilical hernia 06/01/22 Family History Family History Grandparent Diabetes mellitus maternal grandmother Hypertension maternal grandfather Carcinoma of colon maternal grandfather Father Alcohol abuse Cirrhosis of liver Other Malignant neoplasm of prostate Social History Social History Smoking status: Never smoker Second hand tobacco smoke exposure: No Alcohol intake: current Drinks per week: 2 Substance use: never Substance use type: does not use Lack of Transportation: No Lack of Food: Never True Current Housing: I Have Housing Concerned About Future Housing: No Difficulty Paying Gas/Electric Bills: No Difficulty Paying for Meds: No Currently Unemployed: No Education: Bachelor's Degree Difficulty w/ Childcare or Family Care: No Living arrangements: alone Additional living arrangements comments: Occupation/Education: occupation 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 Gender identity (if verbalized by the patient): Female Sexual Orientation (if Verbalized by the Patient): Straight or Heterosexual Spiritual care concerns: No Anes - Eval Final PreProcedure Day of Procedure 07/04/22 11:48 Patient weight: normal Heart: regular rate and rhythm Lungs: clear to auscultation Airway: Mallampati scale class II Neurological: alert and oriented Last oral intake: >/= 8 hours ASA classification: III Emergent: no Anesthetic plan: proceed Anesthesia type and monitoring: general GIVS and standard monitoring Results Review: All pre-operative results and documents have been reviewed as part of the pre-operative evaluation. Informed Consent: The patient's anesthetic plan and its attendant risks and benefits were discussed with the patient/family/POA. Questions were solicited and answers provided t
--- NOTE | 2022-07-04 11:55 | WPDHPUPDATE1 ---
History and Physical Update Update Date/Time: 07/04/22 11:55 History and Physical has been reviewed, including an updated exam of the patient. There are NO changes in the patient's condition. Risks, benefits, and alternatives have been discussed and questions answered. Patient agrees to proceed with procedure.
[2022-07-04 12:00] VITALS: BP 125/89; PULSE 62; RESP 16; TEMP 37; O2SAT 100
[2022-07-04] MEDS: LACTATED RINGERS 1,000 ML 30 ML IV CONT (12:00)
[2022-07-04 12:27] LABS: Hematocrit 32.3 % (37.0-47.0)
[2022-07-04 12:40] LABS: Prothrombin Time 13.2 Seconds (11.1-14.7)
[2022-07-04] MEDS: ceFAZolin 2 GM/D5W 50 ML 2 GM/50 ML BAG IVPB (13:08)
[2022-07-04] MEDS: BUPIVACAINE/EPINEPHRINE 0.25% 50 ML VIAL 30 ML INFILTRATE (13:34)
[2022-07-04 13:51] VITALS: BP 100/58; PULSE 83
--- NOTE | 2022-07-04 13:55 | SUR.OPER ---
[facility] CT [address] [id number], EXP 2025-06-03.
--- NOTE | 2022-07-04 14:12 | P.OP_ITS ---
Procedure Note - Detailed Date of Procedure 07/04/22 Pre-op Diagnosis malignant neoplasm of sigmoid colon Post-op Diagnosis Same Procedure Performed placement of left subclavian venous access device under fluoroscopic guidance Surgeon Shahnaz Hathaway MD Anesthesia MAC and Local Indications 42 y/o F c sigmoid colon cancer and positive lymph nodes requiring venous access device for adjuvant treatment Findings first stick L SCV Description of Procedure Patient was brought into the operating room and placed in the supine position. After adequate induction of mac anesthesia, the patient was prepped and draped in normal sterile fashion. Time-out was then done to verify the patient's identity, as well as the procedure being performed. I began by making a small incision in the left chest, I then gained access into the left subclavian vein with an 18 gauge needle. I then placed the guidewire into the vein and confirmed placement via fluoroscopic guidance. I then locally anesthetized the area in the left chest. I then enlarged the incision around the guidewire including making a subcutaneous pocket inferiorly to allow placement of the port itself. I then placed a dilating sheath over the guidewire into the left subclavian vein via sterile Seldinger technique. This was once again done and confirmed via fluoroscopic guidance. I then removed the dilator and the guidewire, now just leaving the sheath in the vein. I then fed the previously flushed catheter into the left subclavian vein under fluoroscopic guidance. At approximately 21 cm, the catheter was noted to be near the atrial caval ju nction. I then peeled away the sheath, now just leaving the catheter in the vein. I then was able to easily draw and flush from the catheter. The catheter was cut to fit and attached to the port itself. The port was placed into the previously made subcutaneous pocket and sutured in with 0 Ethibond suture. Final fluoroscopic view showed the termination of the catheter at the atrial caval junction with a nice smooth curvature back to the port itself. I was able to gain access to the port with a White needle and was able to easily draw and flush from the port. I then flushed 4 cc of a final heparin flush into the port. The incision was closed with 3 0 Vicryl suture in the subcutaneous tissue and the skin was closed with 4 O Monocryl subcuticular suture. Dermabond was then placed on wound. The patient tolerated the procedure well and will be sent to the recovery room in stable condition. Implants L SCV VAD Estimated Blood Loss 5 Drains No Packing No Pathology None sent Complications No immediate complications Condition Stable Disposition PACU [facility] Billing Surgery - Charge Forward: Surgery Billing
[2022-07-04 14:20] VITALS: BP 114/77; PULSE 66
[2022-07-04 14:50] VITALS: BP 134/83; PULSE 60
[2022-07-04 15:20] VITALS: BP 135/82; PULSE 60
== END 2022-07-04 15:28 | disposition home or self-care (01) ==
PROVIDERS: Visit Provider Surgery
PROC: (CPT 36561; principal; 2022-07-04 13:00)
DX: C18.7 Malignant neoplasm of sigmoid colon (principal); C77.9 Secondary and unspecified malignant neoplasm of lymph node, unspecified
CPT/HCPCS: 36561; 36415; 77001; 85014; 85018; 85610; 85730; C1788; J0690; J1644; J1885; J2250; J2704; J3010; J7030; J7120

== ENCOUNTER 2022-09-25 09:03 | Observation (INO) | payer OTHER, SELFPAY ==
[2022-09-25] VITALS (23 sets, daily range): BP systolic 121–177; BP diastolic 75–112; PULSE 63–79; RESP 14–20; TEMP 36.8–37.3; O2SAT 98–100; BMI 23.4
--- NOTE | ~2022-09-25 | XR_ITS ---
XR abdomen obstructive series DATE: 09/25/2022 14:42 INDICATION: Abdominal pain, improving. TECHNIQUE: Portable supine and upright AP views of the abdomen COMPARISON: 09/25/2022 CT abdomen pelvis 05/16/2022 MR abdomen FINDINGS: There is gaseous distention and air-fluid levels in the colon but no abnormal dilatation of the colon. Radiopaque sutures are identified overlying the distal sigmoid colon. No intraperitoneal free air is detected. No visceromegaly is noted. The renal collecting structures and urinary bladder opacified with contrast material, without hydrone phrosis or apparent filling defect. IMPRESSION: Gaseous distention of colon with air-fluid level; consider adynamic ileus versus partial obstruction Reviewed, dictated and finalized at [facility]. Reviewed, dictated and finalized at [facility].
--- NOTE | ~2022-09-25 | XR_ITS ---
EXAMINATION: XR abdomen obstructive series DATE: 09/26/2022 10:44 INDICATION: Obstructive series TECHNIQUE: Supine and upright views of the abdomen. FINDINGS: The visualized lung parenchyma is normal.. There is a nonobstructive bowel gas pattern. Gas and stool are seen throughout the colon to the level of the rectum. There is no free air. There are surgical changes in the pelvis. IMPRESSION: 1. No acute abdominal abnormality. Reviewed, dictated and finalized at location [facility].
--- NOTE | ~2022-09-25 | CT_ITS ---
EXAMINATION: CT abdomen pelvis w con DATE: 09/25/2022 10:32 INDICATION: Abdominal pain TECHNIQUE: Computed tomography (CT) of the abdomen and pelvis was performed with 100 cc Omnipaque 350 intravenous contrast. The dose-length product was 255.14 mGy-cm. Automated exposure control and iter ative reconstruction technique were employed. COMPARISON: None. FINDINGS: Lung bases unremarkable. Heart size normal. No significant vascular abnormality. No lymphad enopathy. Small supraumbilical ventral abdominal wall hernia containing fat. No lymphadenopathy. The liver, spleen, pancreas, adrenal glands and kidneys are unremarkable. The colon is diffusely dila keeley with areas of colonic wall thickening involving the descending and sigmoid colon. Moderate retain ed fecal material in the distal colon. There is a surgical anastomosis of the rectosigmoid junction. No significant small bowel dilation. No free air or free fluid. There is a sclerotic lesion of the le ft femoral head and left pelvis, most likely benign bone islands. Mild lumbar spondylosis. IMPRESSION: 1. Diffusely dilated colon with areas of mild colonic wall thickening distally. Moderate retained fec al material in the distal colon. Differential diagnosis includes infection/colitis, ileus and partial obstruction at the surgical anastomosis of the rectosigmoid junction. Reviewed, dictated and finalized at location [facility]. IMPRESSION: 1. Diffusely dilated colon with areas of mild colonic wall thickening distally. Moderate retained fecal material in the distal colon. Differential diagnosis i ncludes infection/colitis, ileus and partial obstruction at the surgical anasto mosis of the rectosigmoid junction.
[2022-09-25 09:46] LABS: Basophils Percent Auto 0.2 % (0.2-1.2); Hematocrit 37.6 % (37.0-47.0); Hemoglobin 11.9 g/dL (12.0-15.0); Immature Granulocyte Absolute 0.04 K/mm3 (0.00-0.031); Immature Granulocyte Percent A 0.5 % (0-0.5); Lymphocytes Absolute Auto 0.55 K/mm3 (0.9-3.2); Lymphocytes Percent Auto 6.8 % (18.3-44.2); Mean Corpuscular HGB Conc 31.6 g/dl (32-36); Mean Corpuscular Volume 82.3 fl (80-100); Mean Platelet Volume 9.6 fl (7.4-10.4); Monocytes Absolute Auto 0.4 K/mm3 (0.1-0.6); Monocytes Percent Auto 4.9 % (2.6-8.5); Neutrophils Absolute Auto 7.1 K/mm3 (1.3-6.7); Neutrophils Percent Auto 87.6 % (45.5-73.1); Platelet Count Result 319 k/mm3 (150-375); Red Blood Count 4.57 M/mm3 (4.2-5.4); Red Cell Distribution Width 21.2 % (11.5-14.5); White Blood Count 8.1 K/mm3 (4.5-10.0)
[2022-09-25] MEDS: ONDANSETRON INJ 4 MG/2 ML VIAL IV PUSH (09:47)
[2022-09-25] MEDS: SODIUM CHLORIDE 0.9% IV 1,000 ML 999 ML IV CONT ×2 (09:47→10:03)
--- NOTE | 2022-09-25 09:55 | ED.ABDPAIN ---
HPI - Abdominal Pain General Chief Complaint: Abdominal Pain Stated Complaint: constipation X2 days Time Seen by Provider: 09/25/22 09:08 Source: patient Mode of arrival: ambulatory Limitations: no limitations History of Present Illness HPI narrative: 42-year-old female with history of stage IV colon cancer currently receiving chemotherapy presents today with complaints of rectal pain, constipation, and vomiting that started yesterday. Patient states she has been constipated for the last couple days has tried Colace, MiraLAX, suppositories, multiple enemas, without success. Has had a few small hard round stools but nothing of significance. Vomiting started last night. Chemo held last week due to being neutropenic. Patient receives chemo at [facility] in [place]. Related Data Allergies Allergy/AdvReac Type Severity Reaction Status Date / Time No Known Allergies Allergy Unknown Verified 09/25/22 09:14 Review of Systems Review of Systems: All systems reviewed & are unremarkable except as noted in HPI and below ENT: Reports as per HPI Cardiovascular: Cardiovascular: Reports as per HPI Respiratory: Respiratory: Reports as per HPI Gastrointestinal: Gastrointestinal: Reports as per HPI Musculoskeletal: Musculoskeletal: Reports as per HPI Integumentary/Breasts: Skin/Breast: Reports as per HPI Neurologic: Reports as per HPI Psychiatric: Psychiatric: Reports as per HPI [facility] Past Medical History Medical History Abdominal pain Abnormal CT scan, colon Abnormal Pap smear of cervix 08/14/12 ASCUS (+) HPV - RECURRENT ABNORMAL HX Bone infection (~1979) Bowel habit changes Colonic mass Encounter for IUD insertion 03/02/07 Mirena insertion 02/15/12 Mirena removal/reinsertion-- IUD 12/28/17 Mirena removal/reinsertion-- IUD Encounter for IUD removal 02/15/12 Mirena removal/reinsertion-- IUD 12/28/17 Mirena removal/reinsertion-- IUD 07/17/18 Mirena removal Lymph node abscess (~1980) Miscarriage 06/04/05 suction d&c Screening mammogram, encounter for Staph infection (~09/2002) finger Surgical History Surgical History History of colon surgery (06/01/22) removed 10 inches of sigmoid with umbilical hernia repair History of colposcopy with cervical biopsy 07/21/11 History of D&C S/P colectomy hand assisted laparoscopic sigmoid colectomy, repair of incarcerated umbilical hernia 06/01/22 Family History Family History Grandparent Diabetes mellitus maternal grandmother Hypertension maternal grandfather Carcinoma of colon maternal grandfather Father Alcohol abuse Cirrhosis of liver Other Malignant neoplasm of prostate Social History Social History Smoking status: Never smoker Second hand tobacco smoke exposure: No Alcohol intake: current Drinks per week: 2 Substance use: never Substance use type: does not use Lack of Transportation: No Lack of Food: Never True Current Housing: I Have Housing Concerned About Future Housing: No Difficulty Paying Gas/Electric Bills: No Difficulty Paying for Meds: No Currently Unemployed: No Education: Bachelor's Degree Difficulty w/ Childcare or Family Care: No Living arrangements: alone Additional living arrangements comments: Occupation/Education: occupation 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
[2022-09-25 09:56] LABS: Alanine Aminotransferase 23 U/L (6-35); Albumin Level 4.7 g/dL (3.5-5.1); Alkaline Phosphatase 77 U/L (38-126); Anion Gap 9 mmol/L (8-16); Aspartate Amino Transferase 35 U/L (14-36); Bilirubin,Total 1.2 mg/dL (0.2-1.3); Blood Urea Nitrogen 17 mg/dL (7-17); Carbon Dioxide 24 mmol/L (22-30); Chloride 103 mmol/L (98-107); Estimated CRCL calculation 84 ml/min; Estimated Glomerular Filt Rate > 60; Glucose 137 mg/dL (65-110); Potassium 3.6 mmol/L (3.4-5.0); Sodium 136 mmol/L (137-145)
[2022-09-25] MEDS: fentaNYL CITRATE INJ (*CRX) 100 MCG/2 ML VIAL 50 MCG IV PUSH (09:59)
[2022-09-25 10:31] LABS: Appearance Urine Cloudy (Clear); Bacteria Urine 4+ /hpf; Bilirubin Urine 2+ (Negative); Blood Urine Negative (Negative); Calcium Oxalate Crystals Urine Present /hpf; Color Urine Dark Yellow (Yellow); Glucose Urine UA Negative (Negative); Ketones Urine Negative (Negative); Leukocyte Esterase Ur 1+ LEU/UL (Negative); Mucus Urine Present /lpf; Nitrate Urine Positive (Negative); Protein Urine 1+ mg/dL (Negative); RBC Urine 0-2 /hpf (0-2); Squamous Epithelial Cell Urine Moderate /hpf (Few); WBC Urine 0-5 /hpf; pH Urine 5.5 (5.0-9.0)
[2022-09-25 10:32] LABS: Specific Grav Ur 1.039 (1.001-1.035)
[2022-09-25 10:33] LABS: Add Urine Microscopic? YES
[2022-09-25] MEDS: PANTOPRAZOLE SODIUM IV 40 MG VIAL IV PUSH (12:09)
--- NOTE | 2022-09-25 12:38 | PM.IMHP ---
H&P: HPI History of Present Illness Date/Time: 09/25/22 12:38 Chief Complaint: Abdominal pain Narrative: This is a 42-year-old female patient who has a history of stage IV colon cancer and is undergoing radiation and chemotherapy. The patient has had a hemicolectomy in the past. The patient came to the emergency room with complaints of rectal pain, constipation vomiting since yesterday. The patient tried Colace MiraLax and suppositories with multiple enemas. She has not had any success with any of these laxatives or procedures. The patient stated that she had a few small hard osei but nothing of significance. The patient started vomiting last night. The patient has her treatments at the [facility] and [place]. Sodium is 136. Her urine is cloudy with positive nitrates and 2+ bilirubin with 1+ leukocyte esterase and 4+ bacteria. When I saw her in the emergency room her abdomen was soft and the patient stated that she did have a large bowel movement in the emergency room. She was given IV fluids, Zofran and fentanyl in the emergency room. Surgery has been consulted. CT of the abdomen pelvis was read as the following1. Diffusely dilated colon with areas of mild colonic wall thickening distally. Moderate retained fecal material in the distal colon. Differential diagnosis includes infection/colitis, ileus and partial obstruction at the surgical anastomosis of the rectosigmoid junction. She has no further complaints at this time. The patient is being admitted to observation status on the date of service of 09/25/2022. Review of Systems Review of Systems: All systems reviewed & are unremarkable except as noted in HPI and below Constitutional: Constitutional: Reports as per HPI and Reports no additional constitutional complaints Eyes: Eyes: Reports as per HPI and Reports no additional eye complaints ENT: Reports system reviewed and no additional complaints, except as documented and Reports Normal hearing present Cardiovascular: Cardiovascular: Reports no additional cardiovascular complaints Respiratory: Respiratory: Reports no additional respiratory complaints and Reports no additional respiratory complaints Gastrointestinal: Gastrointestinal: Reports as per HPI and Reports no additional gastrointestinal complaints Musculoskeletal: Musculoskeletal: Reports no additional musculoskeletal complaints Integumentary/Breasts: Skin/Breast: Reports system reviewed and no additional complaints, except as docu and Reports as per HPI Neurologic: Reports system reviewed and no additional complaints, except as documented, Reports as per HPI and Reports Normal hearing present Psychiatric: Psychiatric: Reports no additional psychiatric complaints and Reports as per HPI Endocrine: Endocrine: Reports no additional endocrine complaints Hematologic/Lymphatic: Hematologic/Lymphatic: Reports no additional hematologic/lymphatic complaints Allergic/Immunologic: Allergic/Immunologic: Reports no additional allergic/immunologic complaints PMFSH Past Medical History Medical History Abdominal pain Abnormal CT scan, colon Abnormal Pap smear of cervix 08/14/12 ASCUS (+) HPV - RECURRENT ABNORMAL HX Bone infection (~1979) Bowel habit changes Colon cancer Colonic mass Encounter for IUD insertion 03/02/07 Mirena insertion 02/15/12 Mirena removal/reinsertion-- IUD 12/28/17 Mirena removal/reinsertion-- IUD Encounter for IUD removal 02/15/12 Mirena removal/reinsertion-- IUD 12/28/17 Mirena removal/reinsertion-- IUD 07/17/18 Mirena removal Lymph node abscess (~1980) Miscarriage 06/04/05 suction d&c Screening mammogram, encounter for Staph infection (~09/2002) finger Surgical History Surgical History History of colon surgery (06/01/22) removed 10 inches of sigmoid with umbilical hernia repair History of col
--- NOTE | 2022-09-25 12:52 | PC.NURSE ---
This patient, Rodney Schultz, was admitted to Medical Room 243-01. Patient/family oriented to hospital policies and general routines including ID bracelet, bed and alarms, visiting hours, pain management, procedures, bathroom and other care routines, personal items, smoking policy, room service/diet, and visiting hours. Information on how to activate the Rapid Response Team has been discussed. Patient/Family are encouraged to report perceived risks to care and to ask questions if they do not understand what they are told or what they should do.
[2022-09-25] MEDS: LACTATED RINGERS 1,000 ML 125 ML IV CONT (13:25)
[2022-09-26] MEDS: LACTATED RINGERS 1,000 ML 125 ML IV CONT ×3 (02:00→19:46)
[2022-09-26 05:27] LABS: Basophils Percent Auto 1.3 % (0.2-1.2); Eosinophils Absolute Auto 0.1 K/mm3 (0-0.3); Hematocrit 30.7 % (37.0-47.0); Hemoglobin 9.7 g/dL (12.0-15.0); Immature Granulocyte Absolute 0.01 K/mm3 (0.00-0.031); Immature Granulocyte Percent A 0.3 % (0-0.5); Lymphocytes Absolute Auto 1.08 K/mm3 (0.9-3.2); Lymphocytes Percent Auto 35.8 % (18.3-44.2); Mean Corpuscular HGB Conc 31.6 g/dl (32-36); Mean Corpuscular Hemoglobin 26.7 pg (26-34); Mean Corpuscular Volume 84.6 fl (80-100); Mean Platelet Volume 9.5 fl (7.4-10.4); Monocytes Absolute Auto 0.3 K/mm3 (0.1-0.6); Monocytes Percent Auto 11.3 % (2.6-8.5); Neutrophils Absolute Auto 1.5 K/mm3 (1.3-6.7); Neutrophils Percent Auto 49.3 % (45.5-73.1); Platelet Count Result 234 k/mm3 (150-375); Red Blood Count 3.63 M/mm3 (4.2-5.4); Red Cell Distribution Width 21.3 % (11.5-14.5)
[2022-09-26 05:38] LABS: Alanine Aminotransferase 20 U/L (6-35); Alkaline Phosphatase 49 U/L (38-126); Anion Gap 6 mmol/L (8-16); Aspartate Amino Transferase 31 U/L (14-36); Bilirubin,Total 0.9 mg/dL (0.2-1.3); Blood Urea Nitrogen 11 mg/dL (7-17); Calcium 7.7 mg/dL (8.4-10.2); Carbon Dioxide 24 mmol/L (22-30); Chloride 106 mmol/L (98-107); Estimated CRCL calculation 84 ml/min; Estimated Glomerular Filt Rate > 60; Glucose 91 mg/dL (65-110); Potassium 3.4 mmol/L (3.4-5.0); Sodium 136 mmol/L (137-145)
[2022-09-26 06:00] VITALS: BP 103/56; PULSE 58; RESP 18; TEMP 36.4; O2SAT 100
[2022-09-26] MEDS: MORPHINE SULFATE (*CRX) 2 MG/ML INJ IV PUSH (06:43)
[2022-09-26] MEDS: PANTOPRAZOLE SODIUM IV 40 MG VIAL IV PUSH (09:29)
--- NOTE | 2022-09-26 10:14 | PM.IMPN ---
Progress Note: A&P Assessment and Plan (1) Bowel obstruction: Code(s): K56.609 - Unspecified intestinal obstruction, unspecified as to partial versus complete obstruction Status: Acute Assessment and Plan: Patient presented to the ED with acute abdominal pain. CT abdomen pelvis showing diffusely dilated colon with areas of mild colonic wall thickening distally. Moderate retained fecal material in the distal colon. Surgery has been consulted. Pain improved after large bowel movement in the ED, will try clear liquids. Repeat obstructive see series. Continue with IV fluids, discontinue if she tolerates diet. Continue with analgesics. (2) Colon cancer: Code(s): C18.9 - Malignant neoplasm of colon, unspecified Status: Acute Assessment and Plan: She has a history of stage IV colon cancer and is undergoing chemotherapy at the [facility] [place] in [facility]. The patient has a history of having a colon resection in the past. She states that she is currently receiving 5 FU. (3) UTI (urinary tract infection): Code(s): N39.0 - Urinary tract infection, site not specified Status: Acute Assessment and Plan: The patient was started on Rocephin. Blood and urine cultures are pending. Subjective Date/time seen: 09/26/22 10:14 Interval history: Patient feeling much better today. She stated that her abdominal pain improved after large bowel movement in the ED. she no longer has any nausea. she states that she has had 2 watery bowel movements this morning. Plan to repeat abdominal x-ray. Awaiting further instruction from General surgery. Appreciate their recommendations. Review of Systems Review of Systems: All systems reviewed & are unremarkable except as noted in HPI and below Exam Narrative: GENERAL: Comfortable, no acute distress HENMT: moist mucous membranes EYES: EOM intact b/l NECK: no lymphadenopathy RESPIRATORY: clear to auscultation CARDIO: RRR GI: soft, nontender, bowel sounds present SKIN: no rashes EXTREMITIES: no edema, redness or tenderness Objective Data Vital Signs Vital Signs: Vital Signs - 24 hr 09/25/22 10:16 09/25/22 10:17 09/25/22 10:33 Temperature Pulse Rate 77 Respiratory Rate 18 Blood Pressure 146/96 H Pulse Oximetry 100 100 100 Oxygen Delivery 09/25/22 10:42 09/25/22 10:45 09/25/22 10:46 Temperature Pulse Rate 70 65 Respiratory Rate 20 20 Blood Pressure 165/103 H 165/100 H Pulse Oximetry 99 100 100 Oxygen Delivery 09/25/22 11:04 09/25/22 11:19 09/25/22 11:31 Temperature Pulse Rate 66 Respiratory Rate 20 Blood Pressure 160/104 H Pulse Oximetry 100 100 99 Oxygen Delivery 09/25/22 11:32 09/25/22 11:48 09/25/22 12:00 Temperature Pulse Rate Respiratory Rate Blood Pressure Pulse Oximetry 100 99 99 Oxygen Delivery 09/25/22 12:01 09/25/22 12:15 09/25/22 12:30 Temperature Pulse Rate 69 Respiratory Rate 16 Blood Pressure 151/94 H Pulse Oximetry 99 100 98 Oxygen Delivery 09/25/22 12:40 09/25/22 12:55 09/25/22 20:26 Temperature 99.1 F 98.3 F Pulse Rate 75 69 63 Respiratory Rate 18 14 18 Blood Pressure 128/77 134/78 121/75 Pulse Oximetry 98 100 100 Oxygen Delivery 09/25/22 20:00 09/26/22 06:00 Temperature 97.6 F Pulse Rate 58 L Respiratory Rate 18 Blood Pressure 103/56 L Pulse Oximetry 100 Oxygen Delivery Room Air Intake/Output Intake/Output: Intake & Output 09/23/22 09/24/22 09/25/22 09/26/22 23:59 23:59 23:59 23:59 Intake Total 3050 Output Total 150 Balance 2900 Meds/Results Medications: Active Medications Generic Name Dose Route Start Last Admin Trade Name Freq PRN Reason Stop Dose Admin Acetaminophen/Aspirin/Caffeine 1 tablet 09/26/22 10:12 Acetaminophen/Aspirin/Caffeine 250-250-65 Mg Tablet PO Q6H PRN Pain Rated 1-3 Lactat
[2022-09-26] MEDS: ACETAMINOPHEN/ASPIRIN/CAFFEINE 250-250-65 MG TABLET 1 TABLET PO (10:39)
[2022-09-26 14:28] VITALS: BP 131/77; PULSE 59; RESP 14; TEMP 36.7; O2SAT 100
--- NOTE | 2022-09-26 15:28 | PM.CNGS ---
Assessment and Plan Assessment and plan (1) Bowel obstruction: Code(s): K56.609 - Unspecified intestinal obstruction, unspecified as to partial versus complete obstruction Status: Acute Assessment and Plan: resolved at this point, will ADAT, exam completely benign, +bowel fxn, will ask GI to see likely for colonoscopy as outpt History of Present Illness Consult details Consult date: 09/26/22 Reason for consult: abdominal pain Requesting physician: Melissa Chamberlain NP Narrative: The patient is a 42-year-old female well known to my service from previous left colectomy for colon cancer. Patient is currently undergoing adjuvant chemoradiation. Patient reports she has been doing relatively well, however, over the last month she has had some difficulty with bowel movements. The patient reports intermittent episodes of constipation requiring laxatives. The patient reports the latest episode did not resolve with laxatives and cause severe abdominal pain. The patient reports some nausea but no emesis. The patient reports after admission from the emergency department she has had a good couple of bowel movements and currently feels much improved. Review of Systems Constitutional: Constitutional: Reports as per HPI, Denies anorexia, Reports fatigue, Denies fever(s), Reports lethargy, Reports malaise, Reports poor appetite, Denies weakness, Denies weight gain and Denies weight loss Eyes: Eyes: Reports no additional eye complaints ENT: Denies dysphagia, Denies headache(s), Denies hearing loss and Denies sore throat Cardiovascular: Cardiovascular: Denies chest pain, Denies syncope, Denies irregular heart rhythm, Denies leg edema and Denies dyspnea Respiratory: Respiratory: Denies cough and Denies dyspnea Gastrointestinal: Gastrointestinal: Reports as per HPI, Reports abdominal pain, Reports bloating, Reports change in bowel habits, Denies change in stool character, Reports constipation, Reports GI cramping, Denies dysphagia, Reports early satiety, Denies heartburn, Denies diarrhea, Reports nausea, Denies vomiting and Denies hematemesis Genitourinary: Genitourinary: Denies urinary frequency, Denies dysuria and Denies urinary urgency Musculoskeletal: Musculoskeletal: Denies myalgias, Denies arthralgias and Denies muscle cramps Integumentary/Breasts: Skin/Breast: Denies non-healing lesions and Denies rash Neurologic: Denies syncope, Denies headache(s) and Denies loss of vision Endocrine: Endocrine: Denies change in body appearance and Denies fatigue Hematologic/Lymphatic: Hematologic/Lymphatic: Denies easy bleeding, Denies easy bruising and Denies lymphadenopathy PMFSH Past Medical History Medical History Abdominal pain Abnormal CT scan, colon Abnormal Pap smear of cervix 08/14/12 ASCUS (+) HPV - RECURRENT ABNORMAL HX Bone infection (~1979) Bowel habit changes Colon cancer Colonic mass Encounter for IUD insertion 03/02/07 Mirena insertion 02/15/12 Mirena removal/reinsertion-- IUD 12/28/17 Mirena removal/reinsertion-- IUD Encounter for IUD removal 02/15/12 Mirena removal/reinsertion-- IUD 12/28/17 Mirena removal/reinsertion-- IUD 07/17/18 Mirena removal Lymph node abscess (~1980) Miscarriage 06/04/05 suction d&c Screening mammogram, encounter for Staph infection (~09/2002) finger Surgical History Surgical History History of colon surgery (06/01/22) removed 10 inches of sigmoid with umbilical hernia repair History of colposcopy with cervical biopsy 07/21/11 History of D&C S/P colectomy hand assisted laparoscopic sigmoid colectomy, repair of incarcerated umbilical hernia 06/01/22 Family History Family History Grandparent Diabetes mellitus maternal grandmother Hypertension maternal grandfather Carcinoma
[2022-09-26] MEDS: polyethylene glycoL 3350 17 GM POWD.PACK PO (18:34)
[2022-09-26 20:47] VITALS: BP 123/82; PULSE 65; RESP 14; TEMP 37.1; O2SAT 100
[2022-09-27] MEDS: LACTATED RINGERS 1,000 ML 125 ML IV CONT (04:45)
[2022-09-27 06:30] VITALS: BP 133/83; PULSE 71; RESP 14; TEMP 36.8; O2SAT 99
[2022-09-27 08:07] LABS: Basophils Percent Auto 1.4 % (0.2-1.2); Eosinophils Absolute Auto 0.1 K/mm3 (0-0.3); Eosinophils Percent Auto 1.8 % (0-4.4); Hematocrit 28.9 % (37.0-47.0); Hemoglobin 9.2 g/dL (12.0-15.0); Immature Granulocyte Absolute 0.01 K/mm3 (0.00-0.031); Immature Granulocyte Percent A 0.4 % (0-0.5); Lymphocytes Absolute Auto 1.28 K/mm3 (0.9-3.2); Lymphocytes Percent Auto 44.9 % (18.3-44.2); Mean Corpuscular HGB Conc 31.8 g/dl (32-36); Mean Corpuscular Hemoglobin 26.7 pg (26-34); Monocytes Absolute Auto 0.3 K/mm3 (0.1-0.6); Monocytes Percent Auto 10.5 % (2.6-8.5); Neutrophils Absolute Auto 1.2 K/mm3 (1.3-6.7); Platelet Count Result 213 k/mm3 (150-375); Red Blood Count 3.44 M/mm3 (4.2-5.4); Red Cell Distribution Width 20.6 % (11.5-14.5); White Blood Count 2.9 K/mm3 (4.5-10.0)
[2022-09-27 08:25] LABS: Alanine Aminotransferase 19 U/L (6-35); Alkaline Phosphatase 42 U/L (38-126); Anion Gap 5 mmol/L (8-16); Aspartate Amino Transferase 27 U/L (14-36); Bilirubin,Total 0.4 mg/dL (0.2-1.3); Blood Urea Nitrogen 5 mg/dL (7-17); Calcium 7.9 mg/dL (8.4-10.2); Carbon Dioxide 26 mmol/L (22-30); Chloride 105 mmol/L (98-107); Estimated CRCL calculation 84 ml/min; Estimated Glomerular Filt Rate > 60; Glucose 90 mg/dL (65-110); Potassium 3.6 mmol/L (3.4-5.0); Sodium 136 mmol/L (137-145)
[2022-09-27] MEDS: polyethylene glycoL 3350 17 GM POWD.PACK PO (08:26)
[2022-09-27] MEDS: PANTOPRAZOLE SODIUM IV 40 MG VIAL IV PUSH (08:26)
--- NOTE | 2022-09-27 09:17 | PM.PNGS ---
Progress Note: A&P Assessment and Plan (1) Bowel obstruction: Code(s): K56.609 - Unspecified intestinal obstruction, unspecified as to partial versus complete obstruction Status: Acute Assessment and Plan: resolved, aiyana diet, +bowel fxn, exam benign, ok to dc from surgical standpoint c f/u as outpt to setup colonoscopy Subjective Subjective Date/Time Seen: 09/27/22 09:17 Interval history: feels good, aiyana diet, +bowel fxn Review of Systems Review of Systems: All systems reviewed & are unremarkable except as noted in HPI and below Exam Const: General: cooperative, healthy appearing, comfortable and no acute distress Resp: Auscultation: clear to auscultation bilaterally Cardio: Rate: regular rate Rhythm: regular rhythm GI: Inspection: normal to inspection and non-distended GI Palp: No abdominal tenderness, Yes Soft to palpation, No Tenderness to palpation present (GI), No Guarding due to palpation present (GI) and No Rigid due to palpation Objective Data Vital Signs Vital Signs: Vital Signs - 24 hr 09/26/22 09:30 09/26/22 14:28 09/26/22 19:48 Temperature 36.7 C Pulse Rate 59 L Respiratory Rate 14 Blood Pressure 131/77 Pulse Oximetry 100 Oxygen Delivery Room Air Room Air 09/26/22 20:47 09/27/22 06:30 Temperature 37.1 C 36.8 C Pulse Rate 65 71 Respiratory Rate 14 14 Blood Pressure 123/82 133/83 Pulse Oximetry 100 99 Oxygen Delivery Intake/Output Intake/Output: Intake & Output 09/24/22 09/25/22 09/26/22 09/27/22 23:59 23:59 23:59 23:59 Intake Total 3050 3480 1690 Output Total 150 Balance 2900 3480 1690 Meds/Results Medications: Active Medications Generic Name Dose Route Start Last Admin Trade Name Freq PRN Reason Stop Dose Admin Acetaminophen/Aspirin/Caffeine 1 tablet 09/26/22 10:12 09/26/22 10:39 Acetaminophen/Aspirin/Caffeine 250-250-65 Mg Tablet PO 1 tablet Q6H PRN Administration Migraine Headache Lactated Ringer's 1,000 mls @ 125 mls/hr 09/25/22 11:50 09/27/22 04:45 Lr - Lactated Ringers Iv IV CONT 125 mls/hr .Q8H DIANA Administration Ceftriaxone Sodium 1 gm in 50 mls @ 100 mls/hr 09/25/22 15:00 09/26/22 15:36 Rocephin 1 Gm/Ns 50 Ml IVPB Infused Q24H DIANA Infusion Morphine Sulfate 2 mg 09/25/22 11:49 09/26/22 06:43 Morphine Sulfate (*Crx) 2 Mg/Ml Inj IV PUSH 2 mg Q2H PRN Administration Pain Rated 7-10 Ondansetron HCl 4 mg 09/25/22 11:49 Ondansetron Inj 4 Mg/2 Ml Vial IV PUSH Q4H PRN Nausea Pantoprazole Sodium 40 mg 09/25/22 11:55 09/27/22 08:26 Pantoprazole Sodium Iv 40 Mg Vial IV PUSH 40 mg QAM DIANA Administration Polyethylene Glycol 17 gm 09/26/22 18:20 09/27/22 08:26 Polyethylene Glycol 3350 17 Gm Powd.Pack PO 17 gm QAM DIANA Administration Radiology Results: ITS Impressions Abdomen/Pelvis CT 09/25/22 10:38 IMPRESSION: 1. Diffusely dilated colon with areas of mild colonic wall thickening distally. Moderate retained fecal material in the distal colon. Differential diagnosis includes infection/colitis, ileus and partial obstruction at the surgical anastomosis of the rectosigmoid junction. Abdomen X-Ray 09/26/22 10:54 IMPRESSION: 1. No acute abdominal abnormality. Labs Labs: Laboratory Results - last 24 hr 09/27/22 08:01 WBC 2.9 L RBC 3.44 L Hgb 9.2 L Hct 28.9 L MCV 84.0 MCH 26.7 MCHC 31.8 L RDW 20.6 H Plt Count 213 MPV 9.0 Immature Gran % (Auto) 0.4 Neut % (Auto) 41.0 L Lymph % (Auto) 44.9 H [place] % (Auto) 10.5 H Eos % (Auto) 1.8 Baso % (Auto) 1.4 H Lymph # (Auto) 1.28 [place] # (Auto) 0.3 Eos # (Auto) 0.1 Baso # (Auto) 0.0 Abs Immat Gran (auto) 0.01 Absolute Neuts (auto) 1.2 L Absolute Nucleated RBC 0.0 Nucleated RBC % 0.0 Sodium 136 L Potassium 3.6 Chloride 105 Carbon Dioxide 26 Anion Gap 5 L BUN 5 L D Creatinine 0.60 L Estim Creat Clear Calc 84 Estimated GFR
--- NOTE | 2022-09-27 10:46 | PM.DS ---
DS: Admitting Diagnosis Discharge Date 09/27/22 Admitting Diagnosis abdominal pain, constipation DS: Discharge Diagnosis Discharge Diagnosis (1) Bowel obstruction: Code(s): K56.609 - Unspecified intestinal obstruction, unspecified as to partial versus complete obstruction Status: Acute (2) Colon cancer: Code(s): C18.9 - Malignant neoplasm of colon, unspecified Status: Acute (3) UTI (urinary tract infection): Code(s): N39.0 - Urinary tract infection, site not specified Status: Acute DS: Summary Hospital Course Hospital Course: this is a 42-year-old female with a history of stage IV colon cancer undergoing radiation and chemotherapy and has had a hemicolectomy in the past presented to the ED on 09/25/2022 due to rectal pain and constipation and vomiting since 09/24/2022. Patient has a history of chronic rectal pain after hemicolectomy. She had use Colace, MiraLax and suppositories at home without having successful bowel movement. She was found to have a urine with positive nitrates, 2+ bilirubin and 1+ leukocyte esterase and 4+ bacteria. CT abdomen pelvis revealed diffusely dilated colon and areas of mild colonic wall thickening distally with moderate retained fecal material in the distal colon. She had been given fluids in the ED and had a large bowel movement. After bowel movement her abdominal pain subsided and she advanced her diet. Repeat obstructive series were revealed no acute findings of obstruction. She was started on IV Rocephin while in the ED. general surgery consulted and recommending outpatient colonoscopy. Patient follows a GI and oncologist and it is advised that she set up outpatient colonoscopy. Urine and blood cultures pending on day of discharge. Will follow these and call patient if antibiotics need to be changed according to the sensitivities. Her labs and vital signs are stable and she is medically clear for discharge at this time. Time Spent with Patient Time attestation: Total time spent providing and/or coordinating discharge services: Exam Narrative: GENERAL: Comfortable, no acute distress HENMT: moist mucous membranes EYES: EOM intact b/l NECK: no lymphadenopathy RESPIRATORY: clear to auscultation CARDIO: RRR GI: soft, nontender, bowel sounds present SKIN: no rashes EXTREMITIES: no edema, redness or tenderness DS: Data Data Completed and Pending Labs on day of discharge: Labs from last 24 hours 09/27/22 08:01 WBC 2.9 L RBC 3.44 L Hgb 9.2 L Hct 28.9 L MCV 84.0 MCH 26.7 MCHC 31.8 L RDW 20.6 H Plt Count 213 MPV 9.0 Immature Gran % (Auto) 0.4 Neut % (Auto) 41.0 L Lymph % (Auto) 44.9 H Lamar % (Auto) 10.5 H Eos % (Auto) 1.8 Baso % (Auto) 1.4 H Lymph # (Auto) 1.28 Lamar # (Auto) 0.3 Eos # (Auto) 0.1 Baso # (Auto) 0.0 Abs Immat Gran (auto) 0.01 Absolute Neuts (auto) 1.2 L Absolute Nucleated RBC 0.0 Nucleated RBC % 0.0 Sodium 136 L Potassium 3.6 Chloride 105 Carbon Dioxide 26 Anion Gap 5 L BUN 5 L D Creatinine 0.60 L Estim Creat Clear Calc 84 Estimated GFR > 60 Glucose 90 Calcium 7.9 L Total Bilirubin 0.4 AST 27 ALT 19 Alkaline Phosphatase 42 Total Protein 5.0 L Albumin 3.0 L Preliminary micro results at discharge 09/25/22 16:14 Blood Culture - Preliminary Blood 09/25/22 16:14 Blood Culture - Preliminary Blood Discharge Plan Discharge Attending physician on discharge: Almaz Carlisle Consulting providers: Shahnaz Hathaway; Reagan Cesar Discharging Clinician: Nichole Velasco Patient Disposition: Home, Self-Care Activity: as tolerated Diet: regular Discharge Instructions: Follow-up with railcar brake operator for outpatient colonoscopy. UTI Treatment: Cefdinir 300 mg twice daily for 5 more days. Recommendation for constipation: Recommend patient continue MiraLax 17 g up to 3 times a day. Dulcolax suppository 10 mg as neede
--- NOTE | 2022-09-30 10:15 | PC.NURSE ---
Urine culture is negative.
--- NOTE | 2022-10-03 11:19 | PC.NURSE ---
Blood cultures are negative.
== END 2022-09-27 11:45 | disposition home or self-care (01) ==
LOC: ANHED 12:03 → ANH2MED 12:16
PROVIDERS: Internal Medicine Critical Care Medicine; Admitting Provider Family Medicine; Emergency Provider Nurse Practitioner Family; PCP Nurse Practitioner Family; Visit Provider Family Medicine
DX: K56.609 Unspecified intestinal obstruction, unspecified as to partial versus complete obstruction (principal); C18.9 Malignant neoplasm of colon, unspecified; N39.0 Urinary tract infection, site not specified; K56.7 Ileus, unspecified; Z79.60 Long term (current) use of unspecified immunomodulators and immunosuppressants; Z90.49 Acquired absence of other specified parts of digestive tract; F10.90 Alcohol use, unspecified, uncomplicated; Z79.899 Other long term (current) drug therapy; Z80.0 Family history of malignant neoplasm of digestive organs
CPT/HCPCS: 36415; 74019; 74177; 80053; 81001; 81025; 85025; 87040; 87086; 96361; 96365; 96374; 96375; 99285; A9270; C9113; G0378; G0379; J0696; J2270; J2405; J3010; J7030; J7120; Q9967

== ENCOUNTER 2022-10-17 02:13 | Day surgery (SDC) | payer OTHER, SELFPAY ==
[2022-10-14 15:10] VITALS: BMI 24.1
[2022-10-17 10:24] VITALS: BP 136/85; PULSE 74; RESP 18; TEMP 36.4; O2SAT 100
[2022-10-17] MEDS: LACTATED RINGERS 1,000 ML 150 ML IV CONT (10:33)
--- NOTE | 2022-10-17 10:57 | PM.HPGS ---
History of Present Illness History of Present Illness Consent: Risks, benefits, and alternatives have been discussed and questions answered. Patient agrees to proceed with procedure. 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 Review of Systems Constitutional: Constitutional: Denies headache(s) and Denies weakness Eyes: Eyes: Denies blurry vision ENT: Reports Normal hearing present, Denies headache(s) and Denies neck pain Cardiovascular: Cardiovascular: Denies chest pain and Denies dyspnea Respiratory: Respiratory: Denies dyspnea Gastrointestinal: Gastrointestinal: Reports no additional gastrointestinal complaints Genitourinary: Genitourinary: Denies dysuria Musculoskeletal: Musculoskeletal: Denies neck pain Integumentary/Breasts: Skin/Breast: Denies dry skin Neurologic: Reports Normal hearing present, Denies headache(s) and Denies weakness Psychiatric: Psychiatric: Denies anxiety Endocrine: Endocrine: Denies change in body appearance Hematologic/Lymphatic: Hematologic/Lymphatic: Denies easy bleeding Allergic/Immunologic: Allergic/Immunologic: Denies urticaria PMFSH Past Medical History Medical History Abdominal pain Abnormal CT scan, colon Abnormal Pap smear of cervix 08/14/12 ASCUS (+) HPV - RECURRENT ABNORMAL HX Bone infection (~1979) Bowel habit changes Colon cancer Colonic mass Encounter for IUD insertion 03/02/07 Mirena insertion 02/15/12 Mirena removal/reinsertion-- IUD 12/28/17 Mirena removal/reinsertion-- IUD Encounter for IUD removal 02/15/12 Mirena removal/reinsertion-- IUD 12/28/17 Mirena removal/reinsertion-- IUD 07/17/18 Mirena removal Lymph node abscess (~1980) Miscarriage 06/04/05 suction d&c Screening mammogram, encounter for Staph infection (~09/2002) finger Surgical History Surgical History History of colon surgery (06/01/22) removed 10 inches of sigmoid with umbilical hernia repair History of colposcopy with cervical biopsy 07/21/11 History of D&C S/P colectomy hand assisted laparoscopic sigmoid colectomy, repair of incarcerated umbilical hernia 06/01/22 Family History Family History Grandparent Diabetes mellitus maternal grandmother Hypertension maternal grandfather Carcinoma of colon maternal grandfather Father Alcohol abuse Cirrhosis of liver Other Malignant neoplasm of prostate Social History Social History Social History: She is single and has 2 children . She is current unemployed due to her illness. 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 She has a significant other. 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
--- NOTE | 2022-10-17 11:00 | WPDANESEPPF ---
Anes - Initial Pre Proc Eval Procedure: Operation Date: 10/17/22 13:00 Proposed Procedures p Colonoscopy - Reagan Cesar MD Date/Time: 10/17/22 11:00 Surgeon: Reagan Cesra MD Pre Op Diagnosis: personal hx of other diseases of the digestive sys Patient Data Age: 42 Gender: F Height: 1.6 m Weight: 58.7 kg Last Vital Signs Temp 97.5 F L 10/17/22 10:24 Pulse 74 10/17/22 10:24 Resp 18 10/17/22 10:24 BP 136/85 10/17/22 10:24 Pulse Ox 100 10/17/22 10:24 O2 Del Method Room Air 10/17/22 10:24 Allergies Allergy/AdvReac Type Severity Reaction Status Date / Time No Known Allergies Allergy Unknown Verified 10/17/22 10:23 Home Medications Medication Instructions Recorded Confirmed Type docusate sodium 100 mg capsule 100 mg PO BID #30 caps 06/03/22 10/14/22 Rx (Colace) drospirenone (contraceptive) 4 mg 1 tablet PO DAILY #28 tabs 08/26/22 10/14/22 Rx (28) tablet (Slynd) methylphenidate HCl 5 mg tablet 5 mg PO BID 09/25/22 10/14/22 History ondansetron HCl 4 mg tablet 4 mg PO Q6H PRN Nausea And Vomiting 09/25/22 10/14/22 History filgrastim 300 mcg/mL injection 300 mcg subcut DAILY 10/14/22 10/14/22 History solution (Neupogen) Patient hx anesthesia problems: none Family hx anesthesia problems: none Results Review: All pre-operative results and documents have been reviewed as part of the pre-operative evaluation. [facility] Past Medical History Medical History Abdominal pain Abnormal CT scan, colon Abnormal Pap smear of cervix 08/14/12 ASCUS (+) HPV - RECURRENT ABNORMAL HX Bone infection (~1979) Bowel habit changes Colon cancer Colonic mass Encounter for IUD insertion 03/02/07 Mirena insertion 02/15/12 Mirena removal/reinsertion-- IUD 12/28/17 Mirena removal/reinsertion-- IUD Encounter for IUD removal 02/15/12 Mirena removal/reinsertion-- IUD 12/28/17 Mirena removal/reinsertion-- IUD 07/17/18 Mirena removal Lymph node abscess (~1980) Miscarriage 06/04/05 suction d&c Screening mammogram, encounter for Staph infection (~09/2002) finger Surgical History Surgical History History of colon surgery (06/01/22) removed 10 inches of sigmoid with umbilical hernia repair History of colposcopy with cervical biopsy 07/21/11 History of D&C S/P colectomy hand assisted laparoscopic sigmoid colectomy, repair of incarcerated umbilical hernia 06/01/22 Family History Family History Grandparent Diabetes mellitus maternal grandmother Hypertension maternal grandfather Carcinoma of colon maternal grandfather Father Alcohol abuse Cirrhosis of liver Other Malignant neoplasm of prostate Social History Social History Social History: She is single and has 2 children . She is current unemployed due to her illness. 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 She has a significant other. 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
[2022-10-17 11:22] VITALS: BP 109/69; PULSE 71; RESP 17; O2SAT 100
[2022-10-17 11:32] VITALS: BP 110/75; PULSE 72; RESP 18; O2SAT 100
[2022-10-17 11:42] VITALS: BP 129/90; PULSE 76; RESP 16; O2SAT 100
== END 2022-10-17 11:52 | disposition home or self-care (01) ==
PROVIDERS: PCP Nurse Practitioner Family; Visit Provider Internal Medicine Gastroenterology
PROC: 0DJD8ZZ Inspection of Lower Intestinal Tract, Via Natural or Artificial Opening Endoscopic (ICD-10-PCS; CPT 45378; principal; 2022-10-17 13:00)
DX: Z08 Encounter for follow-up examination after completed treatment for malignant neoplasm (principal); D12.3 Benign neoplasm of transverse colon; Z98.0 Intestinal bypass and anastomosis status; Z90.49 Acquired absence of other specified parts of digestive tract; Z79.899 Other long term (current) drug therapy
CPT/HCPCS: 45380; 45385; 88305; 88342; J2704; J7120

== ENCOUNTER 2022-11-23 15:47 | Outpatient (CLI) | payer OTHER, SELFPAY ==
--- NOTE | ~2022-11-23 | MM_ITS ---
EXAMINATION: MM screening hardeep BI w juan HISTORY: Screening TECHNIQUE: Craniocaudal and mediolateral oblique 3-D tomosynthesis images were obtained and synthetic 2-D images were generated. CAD analysis was submitted and interpreted. COMPARISON: No prior mammogram is available for comparison at this institution. BREAST PARENCHYMAL COMPOSITION: The breasts are extremely dense, which lowers the sensitivity of mamm ography FINDINGS: There is a mass in the upper outer quadrant of the right breast, best seen on CC view. No m ammographic evidence for malignancy in the left breast. IMPRESSION: 1. Right breast mass upper outer quadrant. 2. Additional mammographic views and possible breast ultrasound are recommended. BI-RADS Category 0: Incomplete: Needs additional imaging evaluation. Reviewed, dictated and finalized at location A. IMPRESSION: 1. Right breast mass upper outer quadrant. 2. Additional mammographic views and possible breast ultrasound are recommended . BI-RADS Category 0: Incomplete: Needs additional imaging evaluation.
== END 2022-11-23 15:48 | disposition home or self-care (01) ==
LOC: ANHIMG 15:50
PROVIDERS: PCP Nurse Practitioner Family; Visit Provider Obstetrics & Gynecology
DX: Z12.31 Encounter for screening mammogram for malignant neoplasm of breast (principal); R92.8 Other abnormal and inconclusive findings on diagnostic imaging of breast
CPT/HCPCS: 77063; 77067

== ENCOUNTER 2022-12-21 11:01 | Outpatient (CLI) | payer OTHER, SELFPAY ==
--- NOTE | ~2022-12-21 | MMUS_ITS ---
EXAMINATION: MM diagnostic hardeep RT w juan, US breast RT limited HISTORY: Follow-up right breast asymmetry TECHNIQUE: Additional 3-D tomosynthesis images of the right breast were performed and synthetic 2-D i mages were generated. CAD analysis was submitted and interpreted. High resolution Limited right breas t ultrasound was performed. COMPARISON: 11/23/2022 BREAST PARENCHYMAL COMPOSITION: The breasts are extremely dense, which lowers the sensitivity of mamm ography FINDINGS: MAMMOGRAPHIC FINDINGS: There is a mass in the lateral aspect of the right breast on CC view which is obscured by dense fibro glandular tissue. There are no suspicious calcifications or architectural distortion. ULTRASOUND: Limited right breast ultrasound: At 10:00, 4 cm from the nipple there is a 7 mm intramammary lymph no de, likely corresponding to the mammographic finding. No suspicious masses to suggest malignancy. IMPRESSION: 1. No evidence for malignancy in the right breast. Benign finding. 2. Routine yearly screening mammogram and regular clinical breast examination are recommended. BI-RADS Category 2: Benign finding(s). Reviewed, dictated and finalized at location A. IMPRESSION: 1. No evidence for malignancy in the right breast. Benign finding. 2. Routine yearly screening mammogram and regular clinical breast examination a re recommended. BI-RADS Category 2: Benign finding(s).
== END 2022-12-21 11:02 | disposition home or self-care (01) ==
LOC: ANHIMG 11:04
PROVIDERS: PCP Nurse Practitioner Family; Visit Provider Obstetrics & Gynecology
DX: N63.10 Unspecified lump in the right breast, unspecified quadrant (principal)
CPT/HCPCS: 76642; 77061; 77065; G0279

== ENCOUNTER 2023-06-22 01:19 | Day surgery (SDC) | payer OTHER, SELFPAY ==
[2023-06-13 13:53] VITALS: BMI 24.2
--- NOTE | 2023-06-13 14:00 | PC.NURSE ---
Report to the Outpatient Waiting Room, entrance under the green pavilion located off [facility], at time _1200_ on date _06/22/2023_. Planned Procedure Time: 1400_. Time changes happen often and if your time is changed the preop area will call you the afternoon before. - You and your visitor will be asked to self-screen and do not enter if you have any COVID symptoms. - A mask is optional within the hospital at this time. Patients may have clear liquids (water, carbonated beverages, clear teas, apple juice) until 3 hours prior to surgery with a maximum of 20 ounces. - No food from midnight until time of surgery - Infants may have breast milk until 4 hours before surgery, formula 6 hours prior to surgery. - Children will be allowed to drink immediately following surgery. If applicable, please bring a bottle or sippy cup to assist with drinking. Juice, water, soda, and popsicles are readily available. For infants on formula, please bring formula the day of surgery. Pacifiers are allowed. Take the following medications with a SIP of water the morning of surgery: NONE DO NOT STOP ANY OF YOUR OTHER PRESCRIPTION MEDICATIONS PRIOR TO SURGERY ?EXCEPT THE FOLLOWING Medications to discontinue per physician NONE Date to take last dose Please no make-up, nail korean, hairspray, perfume, deodorant, or body powder the day of surgery. No jewelry (including any body piercings) or valuables the day of surgery, leave them at home. Please take a shower or bath the night before, or the morning of, surgery with HIBICLENS antibacterial soap. Wear comfortable, loose fitting clothing. Children are encouraged to wear pajamas. - Jewelry must be removed prior to entering the operating room. Rings and piercings that are not removed may be cut off. - The hospital will not accept responsibility for valuables. - Please leave all valuables, including medications, at home the day of surgery. If you are going home after surgery, a licensed driver manager must drive you home. - NO public transportation without another adult if you receive anesthesia. - We recommend that an adult stay with you for 24 hours following discharge. - We also recommend that you do not drive, make important decision, drink alcoholic beverages, or take any drugs that were not prescribed by your health care provider for at least 24 hours after your discharge time. For Pediatric surgeries, we recommend two adults accompany the child home. Follow any additional instructions given to you from your surgeon. If you or anyone in your household have experienced Covid symptoms in the past week, please notify your surgeon or the nurse liaison at the phone number below for possible testing. Telephone instructions given to _CHUNG__and asked if any additional questions and then verbalized understanding. Patient advised to call surgeon office or pre surgery nurse liaison [phone] if any additional questions.
[2023-06-22] VITALS (9 sets, daily range): BP systolic 108–139; BP diastolic 60–96; PULSE 63–91; RESP 14–20; TEMP 36.4–36.7; O2SAT 95–100; BMI 24.8
--- NOTE | 2023-06-22 11:29 | PM.IMHP ---
H&P: HPI History of Present Illness Date/Time: 06/22/23 11:29 Chief Complaint: incisional hernia Narrative: Patient states about 5-6 months ago she noticed a bulge just above her umbilicus. She states she will experience occasional soreness. She states the bulge is more prominent when she lays down flat. CT chest/abd/pelvis was done at [facility] in [place] on 01/31/23 and showed a small fat containing incisional hernia. Review of Systems Review of Systems: All systems reviewed & are unremarkable except as noted in HPI and below PMFSH Past Medical History Medical History Abdominal pain Abnormal CT scan, colon Abnormal Pap smear of cervix 08/14/12 ASCUS (+) HPV - RECURRENT ABNORMAL HX Bone infection (~1979) Bowel habit changes Colon cancer Colonic mass Encounter for insertion of mirena IUD Encounter for IUD insertion 03/02/07 Mirena insertion 02/15/12 Mirena removal/reinsertion-- IUD 12/28/17 Mirena removal/reinsertion-- IUD Encounter for IUD removal 02/15/12 Mirena removal/reinsertion-- IUD 12/28/17 Mirena removal/reinsertion-- IUD 07/17/18 Mirena removal Encounter for screening examination for sexually transmitted disease Lymph node abscess (~1980) Miscarriage 06/04/05 suction d&c Screening mammogram, encounter for Staph infection (~09/2002) finger Surgical History Surgical History History of colon surgery (06/01/22) removed 10 inches of sigmoid with umbilical hernia repair History of colposcopy with cervical biopsy 07/21/11 History of D&C History of gynecological procedure (02/15/23) mirena IUD insertion S/P colectomy hand assisted laparoscopic sigmoid colectomy, repair of incarcerated umbilical hernia 06/01/22 Family History Family History Grandparent Diabetes mellitus maternal grandmother Hypertension maternal grandfather Carcinoma of colon maternal grandfather Father Alcohol abuse Cirrhosis of liver Other Malignant neoplasm of prostate Social History Social History Social History: She is single and has 2 children . She is current unemployed due to her illness. 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 She has a significant other. 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 Gender identity (if verbalized by the patient): Female Sexual Orientation (if Verbalized by the Patient): Straight or Heterosexual Spiritual care concerns: No Meds Home Medications and Allergies Home Medications Medication Instructions Recorded Confirmed Type No Home Medications 06/13/23 06/13/23 History Allergies Allergy/AdvReac Type Severity Reaction Status Date / Time No Known Allergies Allergy Unknown Verified 06/13/23 13:51 Exam Const: General: cooperative, comfortable and no acute distress Resp: Auscultation: clear to auscultation bilaterally Cardio: Rate: regular rate Rhythm: regular rhythm GI: Inspection: normal to inspection, distended, incision and visible herniation GI Palp: Yes abdominal tenderness, Yes Soft to palpati
--- NOTE | 2023-06-22 11:31 | WPDHPUPDATE1 ---
History and Physical Update Update Date/Time: 06/22/23 11:31 History and Physical has been reviewed, including an updated exam of the patient. There are NO changes in the patient's condition. Risks, benefits, and alternatives have been discussed and questions answered. Patient agrees to proceed with procedure.
[2023-06-22] MEDS: LACTATED RINGERS 1,000 ML 30 ML IV CONT ×2 (12:30→14:57)
[2023-06-22] MEDS: KETOROLAC 15 MG/ML VIAL (*BKC) IV PUSH (12:39)
[2023-06-22] MEDS: ACETAMINOPHEN 500 MG TABLET 1000 MG PO (12:39)
--- NOTE | 2023-06-22 12:47 | WPDANESEPPF ---
Anes - Initial Pre Proc Eval Procedure: Operation Date: 06/22/23 14:00 Proposed Procedures p Robotic Assisted Incisional Hernia Repair with Mesh - Shahnaz Hathaway MD Date/Time: 06/22/23 12:47 Surgeon: Shahnaz Hathaway MD Pre Op Diagnosis: Incisional Hernia Patient Data Age: 43 Gender: F Height: 1.6 m Weight: 62 kg Allergies Allergy/AdvReac Type Severity Reaction Status Date / Time No Known Allergies Allergy Unknown Verified 06/13/23 13:51 Home Medications Medication Instructions Recorded Confirmed Type No Home Medications 06/13/23 06/13/23 History Patient hx anesthesia problems: none Family hx anesthesia problems: none Results Review: All pre-operative results and documents have been reviewed as part of the pre-operative evaluation. [facility] Past Medical History Medical History Abdominal pain Abnormal CT scan, colon Abnormal Pap smear of cervix 08/14/12 ASCUS (+) HPV - RECURRENT ABNORMAL HX Bone infection (~1979) Bowel habit changes Colon cancer Colonic mass Encounter for insertion of mirena IUD Encounter for IUD insertion 03/02/07 Mirena insertion 02/15/12 Mirena removal/reinsertion-- IUD 12/28/17 Mirena removal/reinsertion-- IUD Encounter for IUD removal 02/15/12 Mirena removal/reinsertion-- IUD 12/28/17 Mirena removal/reinsertion-- IUD 07/17/18 Mirena removal Encounter for screening examination for sexually transmitted disease Lymph node abscess (~1980) Miscarriage 06/04/05 suction d&c Screening mammogram, encounter for Staph infection (~09/2002) finger Surgical History Surgical History History of colon surgery (06/01/22) removed 10 inches of sigmoid with umbilical hernia repair History of colposcopy with cervical biopsy 07/21/11 History of D&C History of gynecological procedure (02/15/23) mirena IUD insertion S/P colectomy hand assisted laparoscopic sigmoid colectomy, repair of incarcerated umbilical hernia 06/01/22 Family History Family History Grandparent Diabetes mellitus maternal grandmother Hypertension maternal grandfather Carcinoma of colon maternal grandfather Father Alcohol abuse Cirrhosis of liver Other Malignant neoplasm of prostate Social History Social History Social History: She is single and has 2 children . She is current unemployed due to her illness. 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 She has a significant other. 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
[2023-06-22] MEDS: ceFAZolin 2 GM/D5W 50 ML 2 GM/50 ML BAG IVPB (13:28)
[2023-06-22] MEDS: BUPIVACAINE/EPINEPHRINE 0.5% 50 ML VIAL 30 ML INFILTRATE (13:49)
--- NOTE | 2023-06-22 14:44 | W.PM.PROC2 ---
Procedure Note - Detailed Date of Procedure 06/22/23 Pre-op Diagnosis Incisional Hernia and umbilical hernia Post-op Diagnosis Same Procedure Performed Robotic assisted repair supraumbilical incisional hernia and umbilical hernia with total defect measuring 5 cm Surgeon Shahnaz Hathaway MD Anesthesia General Indications 43 y/o F presenting with incisional hernia at previous hand port site from sigmoid colectomy Findings 3 cm supraumbilical incisional hernia, 1 cm umbilical hernia, 1 cm bridge inbetween Description of Procedure The patient was taken the operating room placed in the supine position. After adequate induction of general anesthesia, the patient was prepped and draped in normal sterile fashion. A time-out was then done to verify the patient's identity as well as the procedure being performed. I began by making a 8 mm incision in the left upper quadrant. Through this, a Veress needle was placed into the peritoneal cavity and CO2 gas was insufflated. After adequate pneumoperitoneum was achieved, a 8 mm trocar was placed through this incision. I then placed the laparoscope through this trocar site and under direct visualization I placed a 8 mm port in the left mid abdomen as well as an additional 8 mm port in the left lower abdomen. The robot was then docked to the 3 port sites. I then went to the robotic console. I began by identifying the hernia. A moderate-sized incarcerated supraumbilical incisional hernia was noted. There was also a small umbilical hernia. I then was able to reduce both hernias. The hernia was noted to contain a large amount of preperitoneal fat. Once reduced, I also reduced and dissected out the hernia sacs. I then closed the approximately 5 cm defect with 0 strata fix suture. This closure encompassed both defects as well as the 1 cm bridge between the defects. I then placed a 15 x [address] mesh into the abdominal cavity. The positional stitch was placed in the middle of the mesh and brought up centering the mesh over the defects. Once this was done, I used 2x 2 0 V lock suture to suture the mesh to the abdominal wall. Once the mesh was sutured in, I was happy with our tension-free repair. The mesh was noted to have good overlap of the defects. At this point, the robot was undocked and all ports were removed. All port sites were then closed with 4 O Monocryl subcuticular suture. The patient tolerated the procedure well, is extubated in the operating room postoperative, and will be transferred to the recovery room in stable condition. Implants 15 x [address] mesh Estimated Blood Loss 10 Drains No Packing No Pathology None sent Complications No immediate complications Condition Stable Disposition PACU [facility] Billing Surgery - Charge Forward: Surgery Billing
[2023-06-22] MEDS: fentaNYL CITRATE INJ (*CRX) 100 MCG/2 ML VIAL 25 MCG IV PUSH ×5 (15:10→15:20)
[2023-06-22] MEDS: HYDROmorphone HCL INJ (*CRX) 1 MG/ML SYR IV PUSH ×2 (15:24→15:37)
[2023-06-22] MEDS: ONDANSETRON INJ 4 MG/2 ML VIAL IV PUSH (15:45)
[2023-06-22] MEDS: SCOPOLAMINE 1 MG PATCH 1 PATCH TRANSDERM (16:02)
[2023-06-22] MEDS: diphenhydrAMINE HCl INJ 50 MG/ML VIAL 25 MG IV PUSH (16:02)
[2023-06-22] MEDS: oxyCODONE HCL (*CRX) 5 MG TAB IR PO (16:43)
== END 2023-06-22 17:05 | disposition home or self-care (01) ==
PROVIDERS: Visit Provider Surgery
PROC: (CPT 49594; principal; 2023-06-22 14:00)
DX: K43.0 Incisional hernia with obstruction, without gangrene (principal); Z98.890 Other specified postprocedural states; Z90.49 Acquired absence of other specified parts of digestive tract; Z85.038 Personal history of other malignant neoplasm of large intestine; Z80.0 Family history of malignant neoplasm of digestive organs; Z80.42 Family history of malignant neoplasm of prostate
CPT/HCPCS: 49594; S2900; 36415; 86850; 86900; 86901; A9270; C1781; J0690; J1100; J1170; J1200; J1885; J2250; J2405; J2704; J3010; J7120

== ENCOUNTER 2023-07-14 17:57 | Emergency (ER) | payer OTHER, SELFPAY ==
--- NOTE | ~2023-07-14 | XR_ITS ---
EXAMINATION: XR foot LT min 3V DATE: 07/14/2023 18:28 INDICATION: Left fourth and fifth toe pain TECHNIQUE: Dorsoplantar, two oblique and lateral views of the left foot were obtained. COMPARISON: None. FINDINGS: Old healed fracture deformity at the left fifth metatarsal. Bone alignment is normal. No acute fractu re. Small corticated ossicle near the tip of the medial malleolus likely heterotopic ossification rel ated to chronic deltoid ligament sprain. Minimal to mild polyarticular osteoarthritis at multiple carlos nts in the mid and forefoot. No cortical erosions or periosteal reaction. Soft tissues are unremarkab le. No radiopaque foreign bodies. No ankle joint effusion. IMPRESSION: 1. No radiopaque foreign bodies or acute osseous abnormality. Reviewed, dictated and finalized at location A.
--- NOTE | 2023-07-14 17:59 | ED.LOWEXIN ---
HPI - Extremity Injury (Lower) General Chief Complaint: Extremity Injury, Lower Stated Complaint: INJURED L FOOT Time Seen by Provider: 07/14/23 17:58 Source: patient Mode of arrival: ambulatory Limitations: no limitations History of Present Illness HPI Narrative: Rodney is a 43-year-old female patient presenting to the clinic today with complaints of possible injury to the left foot. She reports she is not recalling injuring her foot but she may have kick some furniture she is recently moving. Has a blister in between the 4th and 5th toe with redness and swelling to the left foot. Tenderness to the distal midfoot in between the 4th and 5th toe and is concerned that there may be a foreign body in the 5th toe. States her bones are pretty brittle after getting chemotherapy for adenocarcinoma colon Related Data Allergies Allergy/AdvReac Type Severity Reaction Status Date / Time No Known Allergies Allergy Unknown Verified 07/14/23 18:12 Review of Systems Review of Systems: Pertinent positives per HPI. Patient denies any fever, chills, rash, headache, visual changes, dizziness, cough, runny nose, sore throat, shortness of breath, chest pain, palpitations, nausea, vomiting, diarrhea, constipation, abdominal pain, or any urinary issues. PMFSH Past Medical History Medical History Abdominal pain Abnormal CT scan, colon Abnormal Pap smear of cervix 08/14/12 ASCUS (+) HPV - RECURRENT ABNORMAL HX Bone infection (~1979) Bowel habit changes Colon cancer Colonic mass Encounter for insertion of mirena IUD Encounter for IUD insertion 03/02/07 Mirena insertion 02/15/12 Mirena removal/reinsertion-- IUD 12/28/17 Mirena removal/reinsertion-- IUD Encounter for IUD removal 02/15/12 Mirena removal/reinsertion-- IUD 12/28/17 Mirena removal/reinsertion-- IUD 07/17/18 Mirena removal Encounter for screening examination for sexually transmitted disease Lymph node abscess (~1980) Miscarriage 06/04/05 suction d&c Screening mammogram, encounter for Staph infection (~09/2002) finger Surgical History Surgical History History of colon surgery (06/01/22) removed 10 inches of sigmoid with umbilical hernia repair History of colposcopy with cervical biopsy 07/21/11 History of D&C History of gynecological procedure (02/15/23) mirena IUD insertion History of incisional hernia repair 06/22/2023 - obotic assisted repair supraumbilical incisional hernia and umbilical hernia with total defect measuring [address] Shahnaz Hathaway S/P colectomy hand assisted laparoscopic sigmoid colectomy, repair of incarcerated umbilical hernia 06/01/22 Family History Family History Grandparent Diabetes mellitus maternal grandmother Hypertension maternal grandfather Carcinoma of colon maternal grandfather Father Alcohol abuse Cirrhosis of liver Other Malignant neoplasm of prostate Social History Social History Social History: She is single and has 2 children . She is current unemployed due to her illness. 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 She has a significant other. code status full code Smoking status: Never smoker Second hand tobacco smoke exposure: No Alcohol intake: current Drinks per week: 3 Substance use: never Substance use type: does not use Lack of Transportation: No Lack of Food: Never True Current Housing: I Have Housing Concerned About Future Housing: No Difficulty Paying Gas/Electric Bills: YES Difficulty Paying for Meds: YES Currently Unemployed: No Education: Bachelor's Degree Difficulty w/ Childcare or Family Care: No Living arrangements: alone Additional vinnie
[2023-07-14 18:10] VITALS: BP 137/105; PULSE 83; RESP 16; O2SAT 100
== END 2023-07-14 18:51 | disposition home or self-care (01) ==
PROVIDERS: Emergency Provider Nurse Practitioner Family
DX: S90.822A Blister (nonthermal), left foot, initial encounter (principal); L08.9 Local infection of the skin and subcutaneous tissue, unspecified; X58.XXXA Exposure to other specified factors, initial encounter; Z85.038 Personal history of other malignant neoplasm of large intestine; Z92.21 Personal history of antineoplastic chemotherapy
CPT/HCPCS: 73630; 99213; G0463

== ENCOUNTER 2023-11-29 02:21 | Day surgery (SDC) | payer OTHER, SELFPAY ==
[2023-11-07 15:22] VITALS: BMI 25.5
[2023-11-29 11:42] VITALS: BP 160/95; PULSE 70; RESP 18; TEMP 36.6; O2SAT 100
[2023-11-29] MEDS: LACTATED RINGERS 1,000 ML 150 ML IV CONT (11:51)
--- NOTE | 2023-11-29 11:51 | WPDANESEPPF ---
Anes - Initial Pre Proc Eval Procedure: Operation Date: 11/29/23 14:30 Proposed Procedures p Colonoscopy - Reagna Cesar MD Date/Time: 11/29/23 11:51 Surgeon: Reagan Cesar MD Pre Op Diagnosis: hx of cancer Patient Data Age: 43 Gender: F Height: 1.6 m Weight: 63.1 kg Last Vital Signs Temp 97.9 F 11/29/23 11:42 Pulse 70 11/29/23 11:42 Resp 18 11/29/23 11:42 BP 160/95 H 11/29/23 11:42 Pulse Ox 100 11/29/23 11:42 O2 Del Method Room Air 11/29/23 11:42 Allergies Allergy/AdvReac Type Severity Reaction Status Date / Time No Known Allergies Allergy Unknown Verified 11/29/23 11:41 Home Medications Medication Instructions Recorded Confirmed Type No Home Medications 11/29/23 11/29/23 History Patient hx anesthesia problems: none Family hx anesthesia problems: none Results Review: All pre-operative results and documents have been reviewed as part of the pre-operative evaluation. [facility] Past Medical History Medical History Abdominal pain Abnormal CT scan, colon Abnormal Pap smear of cervix 08/14/12 ASCUS (+) HPV - RECURRENT ABNORMAL HX Bone infection (~1979) Bowel habit changes Colon cancer Colonic mass Encounter for insertion of mirena IUD Encounter for IUD insertion 03/02/07 Mirena insertion 02/15/12 Mirena removal/reinsertion-- IUD 12/28/17 Mirena removal/reinsertion-- IUD Encounter for IUD removal 02/15/12 Mirena removal/reinsertion-- IUD 12/28/17 Mirena removal/reinsertion-- IUD 07/17/18 Mirena removal Encounter for screening examination for sexually transmitted disease Lymph node abscess (~1980) Miscarriage 06/04/05 suction d&c Screening mammogram, encounter for Staph infection (~09/2002) finger Surgical History Surgical History History of colon surgery (06/01/22) removed 10 inches of sigmoid with umbilical hernia repair History of colposcopy with cervical biopsy 07/21/11 History of D&C History of gynecological procedure (02/15/23) mirena IUD insertion History of incisional hernia repair 06/22/2023 - obotic assisted repair supraumbilical incisional hernia and umbilical hernia with total defect measuring [address] Shahnaz Hathaway S/P colectomy hand assisted laparoscopic sigmoid colectomy, repair of incarcerated umbilical hernia 06/01/22 Family History Family History Grandparent Diabetes mellitus maternal grandmother Hypertension maternal grandfather Carcinoma of colon maternal grandfather Father Alcohol abuse Cirrhosis of liver Other Malignant neoplasm of prostate Social History Social History Social History: She is single and has 2 children . She is current unemployed due to her illness. 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 She has a significant other. 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
--- NOTE | 2023-11-29 12:08 | PM.HPGS ---
History of Present Illness History of Present Illness Consent: Risks, benefits, and alternatives have been discussed and questions answered. Patient agrees to proceed with procedure. 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 Review of Systems Review of Systems: All systems reviewed & are unremarkable except as noted in HPI and below PMFSH Past Medical History Medical History Abdominal pain Abnormal CT scan, colon Abnormal Pap smear of cervix 08/14/12 ASCUS (+) HPV - RECURRENT ABNORMAL HX Bone infection (~1979) Bowel habit changes Colon cancer Colonic mass Encounter for insertion of mirena IUD Encounter for IUD insertion 03/02/07 Mirena insertion 02/15/12 Mirena removal/reinsertion-- IUD 12/28/17 Mirena removal/reinsertion-- IUD Encounter for IUD removal 02/15/12 Mirena removal/reinsertion-- IUD 12/28/17 Mirena removal/reinsertion-- IUD 07/17/18 Mirena removal Encounter for screening examination for sexually transmitted disease Lymph node abscess (~1980) Miscarriage 06/04/05 suction d&c Screening mammogram, encounter for Staph infection (~09/2002) finger Surgical History Surgical History History of colon surgery (06/01/22) removed 10 inches of sigmoid with umbilical hernia repair History of colposcopy with cervical biopsy 07/21/11 History of D&C History of gynecological procedure (02/15/23) mirena IUD insertion History of incisional hernia repair 06/22/2023 - obotic assisted repair supraumbilical incisional hernia and umbilical hernia with total defect measuring [address] Shahnaz Hathaway S/P colectomy hand assisted laparoscopic sigmoid colectomy, repair of incarcerated umbilical hernia 06/01/22 Family History Family History Grandparent Diabetes mellitus maternal grandmother Hypertension maternal grandfather Carcinoma of colon maternal grandfather Father Alcohol abuse Cirrhosis of liver Other Malignant neoplasm of prostate Social History Social History Social History: She is single and has 2 children . She is current unemployed due to her illness. 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 She has a significant other. 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
[2023-11-29 12:11] LABS: BEDSIDEPREGUCG Negative (Negative)
[2023-11-29 12:31] VITALS: BP 114/76; PULSE 70; RESP 18; O2SAT 98
[2023-11-29 12:41] VITALS: BP 119/77; PULSE 70; RESP 18; O2SAT 100
[2023-11-29 12:51] VITALS: BP 118/80; PULSE 68; RESP 18; O2SAT 100
== END 2023-11-29 13:04 | disposition home or self-care (01) ==
PROVIDERS: Anesthesiology; Visit Provider Internal Medicine Gastroenterology
PROC: 0DJD8ZZ Inspection of Lower Intestinal Tract, Via Natural or Artificial Opening Endoscopic (ICD-10-PCS; CPT 45378; principal; 2023-11-29 14:30)
DX: Z08 Encounter for follow-up examination after completed treatment for malignant neoplasm (principal); Z85.038 Personal history of other malignant neoplasm of large intestine; Z98.0 Intestinal bypass and anastomosis status; Z90.49 Acquired absence of other specified parts of digestive tract; Z86.010 Personal history of colon polyps
CPT/HCPCS: 45378; J2001; J2704; J7120

== ENCOUNTER 2024-03-07 11:05 | Inpatient (IN) | payer OTHER, SELFPAY ==
[2024-03-07] VITALS (20 sets, daily range): BP systolic 104–145; BP diastolic 76–89; PULSE 72–84; RESP 14–18; TEMP 36.2–37.3; O2SAT 96–100; BMI 24.8
--- NOTE | ~2024-03-07 | XR_ITS ---
EXAMINATION: XR abdomen gastric tube insert DATE: 03/07/2024 13:52 INDICATION: Nasogastric tube placement. TECHNIQUE: An upright view of the abdomen was obtained. COMPARISON: CT abdomen pelvis 03/06/2024 FINDINGS: The lower abdomen is excluded. The colon is mildly distended. No free intraperitoneal gas. The nasogastric tube tip is in the stomach. There is a catheter tip in superior vena cava. IMPRESSION: 1. Nasogastric tube tip in the stomach. 2. Mildly distended colon, consistent with distal obstruction. Reviewed, dictated and finalized at location A. LLIGENCE ANALYST
--- NOTE | ~2024-03-07 | XR_ITS ---
EXAMINATION: XR enema water soluble DATE: 03/07/2024 15:11 INDICATION: Distal colon obstruction. TECHNIQUE: A dairy helper radiograph was obtained. A catheter was inserted into the patient's rectum. Contra st was infused by gravity. Fluoroscopic spot images and conventional radiographs were obtained. Fluor oscopy exposure time was 0.6 minutes. The total number of images was 22. COMPARISON: CT abdomen and pelvis 03/06/2024 FINDINGS: There is a focal stricture at the rectal anastomosis. Only a little contrast passed proxima l to the stricture. The colon is distended proximal to the stricture. There is an intrauterine device in expected position. IMPRESSION: 1. Stricture at the rectal anastomosis with severe partial obstruction. Reviewed, dictated and finalized at location A. RATORY IMMUNOLOGIST
[2024-03-07] MEDS: ONDANSETRON INJ 4 MG/2 ML VIAL IV PUSH ×2 (12:42→16:40)
[2024-03-07] MEDS: SODIUM CHLORIDE 0.9% IV 1,000 ML 999 ML IV CONT (12:42)
--- NOTE | 2024-03-07 12:49 | ED_ITS ---
HPI - Abdominal Pain General Chief Complaint: Abdominal Pain Stated Complaint: HERE TO SEE ALMA FOR BOWEL OBSTRUCTION Time Seen by Provider: 03/07/24 12:01 History of Present Illness HPI narrative: patient is a 44-year-old female who presents ER with reports of concerns for bowel obstruction. She has not had a bowel movement since 03/04/2024. She began developing cramping on new year's Cecilia. She has not been able to pass gas or have a bowel movement. She has been belching frequently and has abdominal cramping. She was seen at an outside ER in [facility] that showed stricture at an anastamosis site of her colon where she had previously had colon cancer resected. She had her procedure preformed by Dr. Hathaway. Related Data Home Medications ?Medication ?Instructions ?Recorded ?Confirmed ?Last Taken ?Type No Home Medications 11/29/23 11/29/23 Unknown History Allergies Allergy/AdvReac Type Severity Reaction Status Date / Time No Known Allergies Allergy Unknown Verified 03/07/24 17:39 [facility] [place] Past Medical History Medical History Encounter for insertion of mirena IUD Encounter for screening examination for sexually transmitted disease Colon cancer Bowel habit changes Abnormal CT scan, colon Abdominal pain Screening mammogram, encounter for Encounter for IUD removal 02/15/12 Mirena removal/reinsertion-- IUD 12/28/17 Mirena removal/reinsertion-- IUD 07/17/18 Mirena removal Encounter for IUD insertion 03/02/07 Mirena insertion 02/15/12 Mirena removal/reinsertion-- IUD 12/28/17 Mirena removal/reinsertion-- IUD Miscarriage 06/04/05 suction d&c Staph infection (~09/2002) finger Lymph node abscess (~1980) Bone infection (~1979) Abnormal Pap smear of cervix 08/14/12 ASCUS (+) HPV - RECURRENT ABNORMAL HX Surgical History Surgical History History of incisional hernia repair 06/22/2023 - robotic assisted repair supraumbilical incisional hernia and umbilical hernia with total defect measuring [address] Shahnaz Hathaway History of gynecological procedure (02/15/23) mirena IUD insertion S/P colectomy hand assisted laparoscopic sigmoid colectomy, repair of incarcerated umbilical hernia 06/01/22 History of D&C History of colposcopy with cervical biopsy 07/21/11 Family History Family History Grandparent Diabetes mellitus maternal grandmother Hypertension maternal grandfather Carcinoma of colon maternal grandfather Father Alcohol abuse Cirrhosis of liver Other Malignant neoplasm of prostate Social History Social History Social History: She is single and has 2 children . She is current unemployed due to her illness. 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 She has a significant other. code status full code Smoking status: Never smoker Second hand tobacco smoke exposure: No Alcohol intake: current Drinks per week: 2 Substance use: never Substance use type: does not use Do You Feel Safe in your Home?: Yes Lack of Transportation: No Lack of Food: Never True Current Housing: I Have Housing Concerned About Future Housing: No Difficulty Paying Gas/Electric Bills: No Difficulty Paying for Meds: No Currently Unemployed: No Education: Bachelor's Degree Difficulty w/ Childcare or Family Care: No Living arrangements: alone Additional living arrangements comments: Occupation/Education: occupation 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 HEAD: Normocephalic, atraumatic. ENT: Mucous membranes moist. CHEST: Clear to auscultation. No respiratory distress. HEART: Regular rate and rhythm. Normal peripheral pulses. ABDOMEN: Soft, nontender, nondistended, active bowel sounds. EXTREMITIES: Normal range of motion. No edema. SKIN: Warm, dry, no rash. NEURO: Alert and oriented x3. PSYCH: Normal mood and affect. Course Course Emergency Course: Discussed with General surgery. Admit to hospitalist service. NG tube placed. Will order hypaque enema at request of General surgery. Vital Signs Vital signs: Vital Signs Temperature 98.3 F 03/07/24 11:14 Pulse Rate 82 03/07/24 11:14 Respiratory Rate 18 03/07/24 11:14 Blood Pressure 108/76 03/07/24 11:14 Pulse Oximetry 100 03/07/24 11:14 Temperature 97.8 F 03/07/24 21:15 Pulse Rate 83 03/07/24 21:15 Respiratory Rate 16 03/07/24 21:15 Blood Pressure 141/86 H 03/07/24 21:15 Pulse Oximetry 100 03/07/24 21:15 Oxygen Delivery Room Air 03/07/24 20:25 Oxygen Flow Rate 6 03/07/24 19:45 MDM - Abdominal Pain Lab Data 03/07/24 12:45 03/07/24 12:45 Labs: Lab Results 03/07/24 03/07/24 03/07/24 Range/Units 12:45 13:05 13:47 WBC 7.4 (4.5-10.0) K/mm3 RBC 4.23 (4.2-5.4) M/mm3 Hgb 13.1 D (12.0-15.0) g/dL Hct 37.5 (37.0-47.0) % MCV 88.7 (80-100) fl MCH 31.0 (26-34) pg MCHC 34.9 (32-36) g/dl RDW 12.4 (11.5-14.5) % Plt Count 244 (150-375) k/mm3 MPV 9.8 (7.4-10.4) fl Immature Gran % (Auto) 0.1 (0-0.5) % Neut % (Auto) 79.4 H (45.5-73.1) % Lymph % (Auto) 8.6 L (18.3-44.2) % Barron % (Auto) 10.7 H (2.6-8.5) % Eos % (Auto) 0.5 (0-4.4) % Baso % (Auto) 0.7 (0.2-1.2) % Lymph # (Auto) 0.64 L (0.9-3.2) K/mm3 Barron # (Auto) 0.8 H (0.1-0.6) K/mm3 Eos # (Auto) 0.0 (0-0.3) K/mm3 Baso # (Auto) 0.1 (0.0-0.1) K/mm3 Abs Immat Gran (auto) 0.01 (0.00-0.031) K/mm3 Absolute Neuts (auto) 5.9 (1.3-6.7) K/mm3 Absolute Nucleated RBC 0.000 (0.0-0.012) K/mm3 Nucleated RBC % 0.0 (0.0-0.2) % Sodium 132 L (137-145) mmol/L Potassium 3.3 L (3.4-5.0) mmol/L Chloride 108 H (98-107) mmol/L Carbon Dioxide 19 L (22-30) mmol/L Anion Gap 5 (4-12) mmol/L BUN 11 D (7-17) mg/dL Creatinine 0.60 L (0.7-1.0) mg/dL Estim Creat Clear Calc 82 ml/min Estimated GFR > 60 (59 - ) Glucose 106 (65-110) mg/dL Calcium 8.6 (8.4-10.2) mg/dL Total Bilirubin 1.1 (0.2-1.3) mg/dL AST 24 (14-36) U/L ALT 13 (6-35) U/L Alkaline Phosphatase 91 (38-126) U/L Total Protein 7.0 (6.3-8.2) g/dL Albumin 3.7 (3.5-5.1) g/dL Lipase 39 (23-300) U/L Urine Color Dark yellow (Yellow) Urine Appearance Cloudy H (Clear) Urine pH 6.0 (5.0-9.0) Ur Specific [place] 1.022 (1.001-1.035) Urine Protein 1+ H (Negative) mg/dL Urine Glucose (UA) Negative (Negative) mg/dL Urine Ketones 3+ H (Negative) mg/dL Ur Blood (Man) Negative (Negative) Urine Nitrate Negative (Negative) Urine Bilirubin Negative (Negative) Urine Urobilinogen 1.0 (<2.0) mg/dL Add Ur Microanalysis Reviewed Leukocyte Esterase Rfl Negative (Negative) LEE ANN/UL Urine RBC 3-5 H (0-2) /hpf Urine WBC 6-10 H (0-3) /hpf Ur Squamous Epith Cells Many H (Few) /hpf Urine Bacteria 2+ H /hpf Urine Casts 3-5 POC Urine HCG, Qual Negative (Negative) Imaging Data Radiologist's impression: ITS Impressions Abdomen X-Ray 03/07/24 13:54 IMPRESSION: 1. Nasogastric tube tip in the stomach. 2. Mildly distended colon, consistent with distal obstruction. Enema w/Water Soluble 03/07/24 15:13 IMPRESSION: 1. Stricture at the rectal anastomosis with severe partial obstruction. Discharge Plan Discharge Clinical Impression: Large bowel obstruction Patient Disposition: Still a Patient Condition: Guarded Prognosis
[2024-03-07] MEDS: LORazepam INJ (*CRX) 2 MG/ML VIAL 0.5 MG IV PUSH (13:03)
[2024-03-07 13:09] LABS: Basophils Absolute Auto 0.1 K/mm3 (0.0-0.1); Basophils Percent Auto 0.7 % (0.2-1.2); Eosinophils Percent Auto 0.5 % (0-4.4); Hematocrit 37.5 % (37.0-47.0); Hemoglobin 13.1 g/dL (12.0-15.0); Immature Granulocyte Absolute 0.01 K/mm3 (0.00-0.031); Immature Granulocyte Percent A 0.1 % (0-0.5); Lymphocytes Absolute Auto 0.64 K/mm3 (0.9-3.2); Lymphocytes Percent Auto 8.6 % (18.3-44.2); Mean Corpuscular HGB Conc 34.9 g/dl (32-36); Mean Corpuscular Volume 88.7 fl (80-100); Mean Platelet Volume 9.8 fl (7.4-10.4); Monocytes Absolute Auto 0.8 K/mm3 (0.1-0.6); Monocytes Percent Auto 10.7 % (2.6-8.5); Neutrophils Absolute Auto 5.9 K/mm3 (1.3-6.7); Neutrophils Percent Auto 79.4 % (45.5-73.1); Platelet Count Result 244 k/mm3 (150-375); Red Blood Count 4.23 M/mm3 (4.2-5.4); Red Cell Distribution Width 12.4 % (11.5-14.5); White Blood Count 7.4 K/mm3 (4.5-10.0)
[2024-03-07 13:20] LABS: Alanine Aminotransferase 13 U/L (6-35); Albumin Level 3.7 g/dL (3.5-5.1); Alkaline Phosphatase 91 U/L (38-126); Anion Gap 5 mmol/L (4-12); Aspartate Amino Transferase 24 U/L (14-36); Bilirubin,Total 1.1 mg/dL (0.2-1.3); Blood Urea Nitrogen 11 mg/dL (7-17); Calcium 8.6 mg/dL (8.4-10.2); Carbon Dioxide 19 mmol/L (22-30); Chloride 108 mmol/L (98-107); Estimated CRCL calculation 82 ml/min; Estimated Glomerular Filt Rate > 60; Glucose 106 mg/dL (65-110); Lipase 39 U/L (23-300); Potassium 3.3 mmol/L (3.4-5.0); Sodium 132 mmol/L (137-145)
[2024-03-07] MEDS: BENZOCAINE/TETRACAINE SPRAY (*SP) 56 ML AEROSOL 1 SPRAY (13:20)
[2024-03-07 13:37] LABS: Add Urine Microscopic? YES; Appearance Urine Cloudy (Clear); Bacteria Urine 2+ /hpf; Bilirubin Urine Negative (Negative); Blood Urine Negative (Negative); Color Urine Dark Yellow (Yellow); Glucose Urine UA Negative (Negative); Ketones Urine 3+ mg/dL (Negative); Leukocyte Esterase Ur Negative LEU/UL (Negative); Need Manual Microscopic Reviewed; Nitrate Urine Negative (Negative); Protein Urine 1+ mg/dL (Negative); Specific Grav Ur 1.022 (1.001-1.035); Squamous Epithelial Cell Urine Many /hpf (Few)
[2024-03-07 13:48] LABS: BEDSIDEPREGUCG Negative (Negative)
--- NOTE | 2024-03-07 13:49 | PC.NURSE ---
NG tube inserted into right nare. Pt pre-medicated prior to insertion per MAR. Left nare attempted first, as pt reports hx of nasal bone fracture and believed the left would be more patent, however, unsuccessful. Right nare patent. X-ray at bedside to verify placement. 80ml yellow output at initial insertion.
[2024-03-07] MEDS: MORPHINE SULFATE (*CRX) 4 MG/ML INJ IV PUSH ×2 (14:30→16:40)
--- NOTE | 2024-03-07 14:53 | P.CONGS_ITS ---
Assessment and Plan Assessment and plan (1) Large bowel obstruction: Code(s): K56.609 - Unspecified intestinal obstruction, unspecified as to partial versus complete obstruction Status: Acute Assessment and Plan: Patient presents with CT scan results from an outside facility that showed possible stricture at her previous anastomosis causing a large bowel obstruction. She is distended and has developed nausea and vomiting. NG tube was placed in the ED. No signs of bowel function for the past 4 days. We would recommend ordering a Hypaque enema to further evaluate the stricture. Discussed with the patient that if there is evidence of a high-grade obstruction, then she will require surgical management, which we would recommend proceeding with creation of diverting loop transverse colostomy. Will continue NG tube decompression, bowel rest, and IV fluids while waiting for WS enema results. 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 She was additionally treated with chemotherapy. Plan I have discussed the patient's case and plan of care with Dr. Alvarez. Thank you for allowing us to see the patient in consultation and we will continue to follow along with you. History of Present Illness Consult details Consult date: 03/07/24 Reason for consult: other (Large bowel obstruction) Requesting physician: Randall Oliveira MD Narrative: This is a 44-year-old woman who is known to our service from a previous hand assisted laparoscopic sigmoid colectomy with repair of incarcerated umbilical hernia in July of 2022 for colon cancer. She had positive lymph nodes on pathology and subsequently treated with chemotherapy, which was completed in January of 2023. She developed an incisional hernia, which was laparoscopically repaired with mesh in June of 2023. She reports noticing hard small stools recently and thought she was constipated. She developed a sudden onset of lower abdominal pain on 03/04/24 while in [place], [place] for vacation. She tried taking laxatives without relief. Due to her persistent pain, she presented to an ED in [place]. They did a CT scan with the report (which she brought in to review with her) showed stool throughout the colon and a possible stricture at the anastomosis with proximal distention of the colon. She was offered surgery, but preferred to come home and be evaluated here. She drove home and presented to the ED today. She has not had a BM since 03/04/24 and no flatus. She has now developed nausea and vomiting with NBNB emesis. She had NG placement and plain films in the ED that showed colonic dilation. Our service was consulted and she is now seen in the ED for evaluation. She continues to have abdominal pain that improved slightly with IV Morphine. No other complaints at this time. Review of Systems 2 Review of Systems: All systems reviewed & are unremarkable except as noted in HPI and below PMFSH Past Medical History Medical History (Updated 03/07/24 @ 15:14 by JANELLE Rudolph) Encounter for insertion of mirena IUD Encounter for screening examination for sexually transmitted disease Colon cancer Bowel habit changes Abnormal CT scan, colon Abdominal pain Screening mammogram, encounter for Encounter for IUD removal 02/15/12 Mirena removal/reinsertion-- IUD 12/28/17 Mirena removal/reinsertion-- IUD 07/17/18 Mirena removal Encounter for IUD insertion 03/02/07 Mirena insertion 02/15/12 Mirena removal/reinsertion-- IUD 12/28/17 Mirena removal/reinsertion-- IUD Miscarriage 06/04/05 suction d&c Staph infection (~09/2002) finger Lymph node abscess (~1980) Bone infection (~1979) Abnormal Pap smear of cervix 08/14/12 ASCUS (+) HPV - RECURRENT ABNORMAL HX Surgical History Surgical History (Updated 03/07/24 @ 15:14 by JANELLE Rudolph) History of incisional hernia repair 06/22/2023 - robotic assisted repair supraumbilical incisional hernia and umbilical hernia with total defect measuring [address] Shahnaz Hathaway History of gynecological procedure (02/15/23) mirena IUD insertion S/P colectomy hand assisted laparoscopic sigmoid colectomy, repair of incarcerated umbilical hernia 06/01/22 History of D&C History of colposcopy with cervical biopsy 07/21/11 Family History Family History Grandparent Diabetes mellitus maternal grandmother Hypertension maternal grandfather Carcinoma of colon maternal grandfather Father Alcohol abuse Cirrhosis of liver Other Malignant neoplasm of prostate Social History Social History Social History: She is single and has 2 children . She is current unemployed due to her illness. 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 She has a significant other. 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 Gender identity (if verbalized by the patient): Female Sexual Orientation (if Verbalized by the Patient): Straight or Heterosexual Spiritual care concerns: No Meds Home Medications and Allergies Home Medications ?Medication ?Instructions ?Recorded ?Confirmed ?Type No Home Medications 11/29/23 11/29/23 History Allergies Allergy/AdvReac Type Severity Reaction Status Date / Time No Known Allergies Allergy Unknown Verified 03/07/24 11:08 Vital Signs Vital Signs - 24 hr 03/07/24 11:14 03/07/24 11:46 03/07/24 13:20 Temperature 98.3 F Pulse Rate 82 84 Respiratory Rate 18 Blood Pressure 108/76 Pulse Oximetry 100 98 100 03/07/24 13:30 03/07/24 13:45 Temperature Pulse Rate 83 83 Respiratory Rate 18 Blood Pressure 104/87 Pulse Oximetry 100 Exam 2 Const: General: comfortable and no acute distress Nutritional Appearance: a verage body habitus Orientation/consciousness: patient oriented x3 HENMT: Head: normocephalic and atraumatic Ears: hearing grossly normal bilaterally Eyes: General: appearance normal, both eyes and all related structures P upils: Equal, round and reactive pupils present Neck: Neck: normal visual inspection and full ROM Resp: Effort & Inspection: no respiratory distress Auscultation: clear to auscultation bilaterally Cardio: Rate: regular rate Rhythm: regular rhythm Heart sounds: S1 normal heart sound present and S2 normal heart sound present GI: Inspection: distended GI Palp: Yes Soft to palpation, Yes Tenderness to palpation present (GI) (diffusely tender), No Guarding due to palpation present (GI), No Hernia present and No Rebound tenderness present Auscultation: a bsent bowel sounds Rectal Exam: deferred Skin: General skin exam: normal color Neuro: General: moves all extremities and no focal motor deficits Speech: n ormal speech Motor exam (neuro): 5/5 motor strength present throughout Extrem: General: normal to inspection and no edema Psych: Mental Status: mental status grossly normal Attitude: cooperative Insight: Good insight present (Psych) Judgement: Good judgement present (Psych) Results Labs 03/07/24 12:45 03/07/24 12:45 Labs: Abnormal lab results 03/07/24 03/07/24 Range/Units 12:45 13:05 Neut % (Auto) 79.4 H (45.5-73.1) % Lymph % (Auto) 8.6 L (18.3-44.2) % [place] % (Auto) 10.7 H (2.6-8.5) % Lymph # (Auto) 0.64 L (0.9-3.2) K/mm3 [place] # (Auto) 0.8 H (0.1-0.6) K/mm3 Sodium 132 L (137-145) mmol/L Potassium 3.3 L (3.4-5.0) mmol/L Chloride 108 H (98-107) mmol/L Carbon Dioxide 19 L (22-30) mmol/L Creatinine 0.60 L (0.7-1.0) mg/dL Urine Appearance Cloudy H (Clear) Urine Protein 1+ H (Negative) mg/dL Urine Ketones 3+ H (Negative) mg/dL Urine RBC 3-5 H (0-2) /hpf Urine WBC 6-10 H (0-3) /hpf Ur Squamous Epith Cells Many H (Few) /hpf Urine Bacteria 2+ H /hpf Diabetes panel 03/07/24 Range/Units 12:45 Sodium 132 L (137-145) mmol/L Potassium 3.3 L (3.4-5.0) mmol/L Chloride 108 H (98-107) mmol/L Carbon Dioxide 19 L (22-30) mmol/L BUN 11 D (7-17) mg/dL Creatinine 0.60 L (0.7-1.0) mg/dL Glucose 106 (65-110) mg/dL Calcium 8.6 (8.4-10.2) mg/dL AST 24 (14-36) U/L ALT 13 (6-35) U/L Alkaline Phosphatase 91 (38-126) U/L Total Protein 7.0 (6.3-8.2) g/dL Albumin 3.7 (3.5-5.1) g/dL Calcium panel 03/07/24 Range/Units 12:45 Calcium 8.6 (8.4-10.2) mg/dL Albumin 3.7 (3.5-5.1) g/dL Pituitary panel 03/07/24 Range/Units 12:45 Sodium 132 L (137-145) mmol/L Potassium 3.3 L (3.4-5.0) mmol/L Chloride 108 H (98-107) mmol/L Carbon Dioxide 19 L (22-30) mmol/L BUN 11 D (7-17) mg/dL Creatinine 0.60 L (0.7-1.0) mg/dL Glucose 106 (65-110) mg/dL Calcium 8.6 (8.4-10.2) mg/dL Adrenal panel 03/07/24 Range/Units 12:45 Sodium 132 L (137-145) mmol/L Potassium 3.3 L (3.4-5.0) mmol/L Chloride 108 H (98-107) mmol/L Carbon Dioxide 19 L (22-30) mmol/L BUN 11 D (7-17) mg/dL Creatinine 0.60 L (0.7-1.0) mg/dL Glucose 106 (65-110) mg/dL Calcium 8.6 (8.4-10.2) mg/dL Total Bilirubin 1.1 (0.2-1.3) mg/dL AST 24 (14-36) U/L ALT 13 (6-35) U/L Alkaline Phosphatase 91 (38-126) U/L Total Protein 7.0 (6.3-8.2) g/dL Albumin 3.7 (3.5-5.1) g/dL All other labs normal. Imaging Additional studies: ITS Impressions Abdomen X-Ray 03/07/24 13:54 IMPRESSION: 1. Nasogastric tube tip in the stomach. 2. Mildly distended colon, consistent with distal obstruction.
--- NOTE | 2024-03-07 15:08 | PM.IMHP ---
H&P: HPI History of Present Illness Date/Time: 03/07/24 15:08 Chief Complaint: SBO Narrative: This is a 44-year-old female with a significant past medical history of stage III colon cancer status post colectomy and reanastomosis who presented to the hospital with complaint of abdominal pain. Patient reports that she has not had a bowel movement since 03/04/25 and started having cramping on [place]. She was initially seen at an ER in [facility] and had a CT scan that shown stool throughout the colon and stricture at the anastomosis site. She was offered surgery there but declined. She then drove herself here as she had the original surgery with Dr. Hathaway on 06/22/23 of this year. NG tube was placed in our ED due to the development of nausea and vomiting. She denies any fever, chills,diarrhea, chest pain, or shortness of breath. She endorses nausea, vomiting, and abdominal pain. Workup in abdomen x-ray which showed NG tube in the stomach, mildly distended colon consistent with distal obstruction. Initial labs showed a normal white blood cell count of 7.4, sodium 132, potassium 3.3, bicarb 19. A UA was obtained and showed cloudy appearance, 1+ urine protein, 3+ urine ketones, 3-5 urine RBC, 6-10 urine WBC, many urine squamous epithelial cells, 2+ urine bacteria. test was negative. Urine culture was obtained and pending. EKG showed sinus rhythm with a rate of 66, QTC 458. Patient was given 1 L of normal saline, Ativan, morphine, and Zofran while in the ED. General surgery was consulted and took patient to the OR for creation of diverting transverse colostomy by Dr. Alvarez. Review of Systems Review of Systems: All systems reviewed & are unremarkable except as noted in HPI and below Constitutional: Constitutional: Reports as per HPI and Reports no additional constitutional complaints Eyes: Eyes: Reports as per HPI and Reports no additional eye complaints ENT: Reports system reviewed and no additional complaints, except as documented and Reports as per HPI Cardiovascular: Cardiovascular: Reports as per HPI and Reports no additional cardiovascular complaints Respiratory: Respiratory: Reports no additional respiratory complaints Gastrointestinal: Gastrointestinal: Reports no additional gastrointestinal complaints Genitourinary: Genitourinary: Reports no additional female genitourinary complaints and Reports as per HPI Musculoskeletal: Musculoskeletal: Reports no additional musculoskeletal complaints and Reports as per HPI Integumentary/Breasts: Skin/Breast: Reports as per HPI Neurologic: Reports system reviewed and no additional complaints, except as documented and Reports as per HPI Psychiatric: Psychiatric: Reports no additional psychiatric complaints and Reports as per HPI [facility] Past Medical History Medical History Encounter for insertion of mirena IUD Encounter for screening examination for sexually transmitted disease Colon cancer Bowel habit changes Abnormal CT scan, colon Abdominal pain Screening mammogram, encounter for Encounter for IUD removal 02/15/12 Mirena removal/reinsertion-- IUD 12/28/17 Mirena removal/reinsertion-- IUD 07/17/18 Mirena removal Encounter for IUD insertion 03/02/07 Mirena insertion 02/15/12 Mirena removal/reinsertion-- IUD 12/28/17 Mirena removal/reinsertion-- IUD Miscarriage 06/04/05 suction d&c Staph infection (~09/2002) finger Lymph node abscess (~1980) Bone infection (~1979) Abnormal Pap smear of cervix 08/14/12 ASCUS (+) HPV - RECURRENT ABNORMAL HX Surgical History Surgical History History of incisional hernia repair 06/22/2023 - robotic assisted repair supraumbilical incisional hernia and umbilical hernia with total defect measuring [address] Shahnaz Hathaway History of gynecological procedure (02/15/23) mirena IUD insertion S/P colectomy hand assisted laparoscopic sigmoid colectomy, repair of incarcerated umbilical hernia 06/01/22 History of D&C History of colposcopy with cervical biopsy 07/21/11 Family History Family History Grandparent Diabetes mellitus maternal grandmother Hypertension maternal grandfather Carcinoma of colon maternal grandfather Father Alcohol abuse Cirrhosis of liver Other Malignant neoplasm of prostate Social History Social History Social History: She is single and has 2 children . She is current unemployed due to her illness. 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 She has a significant other. code status full code Smoking status: Never smoker Second hand tobacco smoke exposure: No Alcohol intake: current Drinks per week: 2 Substance use: never Substance use type: does not use Do You Feel Safe in your Home?: Yes Lack of Transportation: No Lack of Food: Never True Current Housing: I Have Housing Concerned About Future Housing: No Difficulty Paying Gas/Electric Bills: No Difficulty Paying for Meds: No Currently Unemployed: No Education: Bachelor's Degree Difficulty w/ Childcare or Family Care: No Living arrangements: alone Additional living arrangements comments: Occupation/Education: occupation 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 Gender identity (if verbalized by the patient): Female Sexual Orientation (if Verbalized by the Patient): Straight or Heterosexual Spiritual care concerns: No Meds Home Medications and Allergies Home Medications ?Medication ?Instructions ?Recorded ?Confirmed ?Type metformin 500 mg tablet,extended 500 mg PO DAILY 03/07/24 03/07/24 History release 24 hr naltrexone 8 mg-bupropion 90 mg 1 tablet PO ONCE 03/07/24 03/07/24 History tablet,extended release Allergies Allergy/AdvReac Type Severity Reaction Status Date / Time No Known Allergies Allergy Unknown Verified 03/07/24 17:39 Vital Signs Vital Signs - 24 hr 03/07/24 11:14 03/07/24 11:46 03/07/24 13:20 Temperature 98.3 F Pulse Rate 82 84 Respiratory Rate 18 Blood Pressure 108/76 Pulse Oximetry 100 98 100 03/07/24 13:30 03/07/24 13:45 Temperature Pulse Rate 83 83 Respiratory Rate 18 Blood Pressure 104/87 Pulse Oximetry 100 Exam Narrative: General: In no acute distress, well nourished Head: atraumatic, no encephalopathy Eyes: PERRLA, sclera clear ENT:dry mucous membranes, nasal passages clear, reports a sore throat Neck: supple, no JVD, no adenopathy, trachea midline Cardiac: Normal S1 and S2. No murmur, gallops or friction rubs, peripheral pulses intact. Respiratory: Lungs clear to auscultation, no adventitious lung sounds Gastrointestinal: soft, non-distended, non-tender, hypoactive bowel sounds, diverting colostomy with pink stoma--stool noted in bag, NG tube to LIS : voiding without difficulty. Extremities: moves all extremities well, no edema Skin: clean, dry, intact. No wounds or lesions. Neuro: Alert and oriented x4, cranial nerves intact, no neuro deficits. Psych: normal mood, normal affect, interactive H&P: Results Labs Labs: Short CBC 03/07/24 Range/Units 12:45 WBC 7.4 (4.5-10.0) K/mm3 Hgb 13.1 D (12.0-15.0) g/dL Hct 37.5 (37.0-47.0) % Plt Count 244 (150-375) k/mm3 BMP 03/07/24 12:45 Sodium 132 L Potassium 3.3 L Chloride 108 H Carbon Dioxide 19 L BUN 11 D Creatinine 0.60 L Glucose 106 Calcium 8.6 Liver Function 03/07/24 Range/Units 12:45 Total Bilirubin 1.1 (0.2-1.3) mg/dL AST 24 (14-36) U/L ALT 13 (6-35) U/L Alkaline Phosphatase 91 (38-126) U/L Albumin 3.7 (3.5-5.1) g/dL Urine 03/07/24 Range/Units 13:05 Urine Color Dark yellow (Yellow) Urine Appearance Cloudy H (Clear) Urine pH 6.0 (5.0-9.0) Ur Specific [place] 1.022 (1.001-1.035) Urine Protein 1+ H (Negative) mg/dL Urine Glucose (UA) Negative (Negative) mg/dL Imaging Abdominal x-ray: Radiologist's impression: EXAMINATION: XR abdomen gastric tube insert DATE: 03/07/2024 13:52 INDICATION: Nasogastric tube placement. TECHNIQUE: An upright view of the abdomen was obtained. COMPARISON: CT abdomen pelvis 03/06/2024 FINDINGS: The lower abdomen is excluded. The colon is mildly distended. No free intraperitoneal gas. The nasogastric tube tip is in the stomach. There is a catheter tip in superior vena cava. IMPRESSION: 1. Nasogastric tube tip in the stomach. 2. Mildly distended colon, consistent with distal obstruction. Reviewed, dictated and finalized at location A. RTMENT HELPER Please be advised this is a medical document. It is intended for [id number] communication. It is written in medical language and may contain unfamiliar abbreviations or verbiage. Medical documents are intended to carry relevant information, facts as evident, and the clinical opinion of the practitioner at the time of the encounter. This report may have been done utilizing a voice recognition system. Attempts have been made to correct errors. However, there may be uncorrected grammatical, spelling, and recognition errors present. The file time of this note does not necessarily represent the time the patient was seen. Dictated By: Alfonso Redmond MD 03/07/24 [id number] Signed By: <Electronically signed by Alfonso Redmond MD in OV> Assessment and Plan Assessment and plan (1) Large bowel obstruction: Code(s): K56.609 - Unspecified intestinal obstruction, unspecified as to partial versus complete obstruction Status: Acute Assessment and Plan: Abdomen x-ray shown NG tube in the stomach, mildly distended colon consistent with distal obstruction Water-soluble enema was done showing a stricture at the rectal anastomosis with severe partial obstruction General surgery was consulted and took patient for diverting colostomy Continue nausea control Continue pain control NG tube to low intermittent suction Continue NPO status (2) S/P colectomy: Code(s): Z90.49 - Acquired absence of other specified parts of digestive tract Status: Acute Assessment and Plan: Patient had laparoscopic sigmoid colectomy for repair of an incarcerated umbilical hernia on 06/01/[address] Hathaway. She did have complication back in June of this year with an incisional hernia that developed requiring surgical repair of the supraumbilical incisional hernia and umbilical hernia. This was performed on 06/22/[address] Hathaway. She had a colonoscopy performed on 11/29/2023 which shown a colocolonic anastomosis present in the sigmoid colon (3) Colon cancer: Qualifiers: Colon location: unspecified part of colon Qualified Code(s): C18.9 - Malignant neoplasm of colon, unspecified Code(s): C18.9 - Malignant neoplasm of colon, unspecified Status: Acute Assessment and Plan: Patient was found to have a sigmoid colon mass that ended up being stage III colon cancer back in May of 2022 requiring laparoscopic sigmoid colectomy She was originally treated by Dr. Moulton and Dr. Singleton at [facility] Quality VTE Prophylaxis VTE prophylaxis: mechanical ordered Hospitalist MIPS Advance Care Plan I have confirmed that the patient's Advanced Care Plan is present, code status is documented, or surrogate decision maker is listed in patient medical record.: Yes Medication Reconciliation I have utilized all available resources to obtain, update and review the patients current medications (includes all prescriptions, OTC, herbals, cannabis, and nutritional supplements).: Yes
[2024-03-07] MEDS: PROMETHAZINE HCL 25 MG/ML AMPUL 12.5 MG IV PUSH (15:57)
[2024-03-07] MEDS: SODIUM CHLORIDE 0.9% IV 100 ML 999 ML (15:59)
--- NOTE | 2024-03-07 16:42 | PC.NURSE ---
Pt c/o increased pain and vomiting. PRN medication administered
--- NOTE | 2024-03-07 17:31 | WPDANESEPPF ---
Anes - Initial Pre Proc Eval Procedure: Operation Date: 03/07/24 19:30 Proposed Procedures p Creation Diverting Transverse Colostomy - Héctor Alvarez MD Date/Time: 03/07/24 17:31 Surgeon: Max Mccray MD Pre Op Diagnosis: Large Bowels Obstruction Patient Data Age: 44 Gender: F Height: 1.6 m Weight: 63.6 kg Last Vital Signs Temp 98.3 F 03/07/24 11:14 Pulse 74 03/07/24 16:15 Resp 16 03/07/24 16:15 BP 110/76 03/07/24 16:15 Pulse Ox 100 03/07/24 16:15 Allergies Allergy/AdvReac Type Severity Reaction Status Date / Time No Known Allergies Allergy Unknown Verified 03/07/24 11:08 Home Medications ?Medication ?Instructions ?Recorded ?Confirmed ?Type No Home Medications 11/29/23 11/29/23 History Laboratory Tests 03/07/24 03/07/24 03/07/24 12:45 13:05 13:47 WBC 7.4 K/mm3 (4.5-10.0) RBC 4.23 M/mm3 (4.2-5.4) Hgb 13.1 D g/dL (12.0-15.0) Hct 37.5 % (37.0-47.0) MCV 88.7 fl (80-100) MCH 31.0 pg (26-34) MCHC 34.9 g/dl (32-36) RDW 12.4 % (11.5-14.5) Plt Count 244 k/mm3 (150-375) MPV 9.8 fl (7.4-10.4) Immature Gran % (Auto) 0.1 % (0-0.5) Neut % (Auto) 79.4 H % (45.5-73.1) Lymph % (Auto) 8.6 L % (18.3-44.2) [place] % (Auto) 10.7 H % (2.6-8.5) Eos % (Auto) 0.5 % (0-4.4) Baso % (Auto) 0.7 % (0.2-1.2) Lymph # (Auto) 0.64 L K/mm3 (0.9-3.2) [place] # (Auto) 0.8 H K/mm3 (0.1-0.6) Eos # (Auto) 0.0 K/mm3 (0-0.3) Baso # (Auto) 0.1 K/mm3 (0.0-0.1) Abs Immat Gran (auto) 0.01 K/mm3 (0.00-0.031) Absolute Neuts (auto) 5.9 K/mm3 (1.3-6.7) Absolute Nucleated RBC 0.000 K/mm3 (0.0-0.012) Nucleated RBC % 0.0 % (0.0-0.2) Sodium 132 L mmol/L (137-145) Potassium 3.3 L mmol/L (3.4-5.0) Chloride 108 H mmol/L (98-107) Carbon Dioxide 19 L mmol/L (22-30) Anion Gap 5 mmol/L (4-12) BUN 11 D mg/dL (7-17) Creatinine 0.60 L mg/dL (0.7-1.0) Estim Creat Clear Calc 82 ml/min Estimated GFR > 60 (59 - ) Glucose 106 mg/dL (65-110) Calcium 8.6 mg/dL (8.4-10.2) Total Bilirubin 1.1 mg/dL (0.2-1.3) AST 24 U/L (14-36) ALT 13 U/L (6-35) Alkaline Phosphatase 91 U/L (38-126) Total Protein 7.0 g/dL (6.3-8.2) Albumin 3.7 g/dL (3.5-5.1) Lipase 39 U/L (23-300) Urine Color Dark yellow (Yellow) Urine Appearance Cloudy H (Clear) Urine pH 6.0 (5.0-9.0) Ur Specific [place] 1.022 (1.001-1.035) Urine Protein 1+ H mg/dL (Negative) Urine Glucose (UA) Negative mg/dL (Negative) Urine Ketones 3+ H mg/dL (Negative) Ur Blood (Man) Negative (Negative) Urine Nitrate Negative (Negative) Urine Bilirubin Negative (Negative) Urine Urobilinogen 1.0 mg/dL (<2.0) Add Ur Microanalysis Reviewed Leukocyte Esterase Rfl Negative LEE ANN/UL (Negative) Urine RBC 3-5 H /hpf (0-2) Urine WBC 6-10 H /hpf (0-3) Ur Squamous Epith Cells Many H /hpf (Few) Urine Bacteria 2+ H /hpf Urine Casts 3-5 POC Urine HCG, Qual Negative (Negative) Patient hx anesthesia problems: none Family hx anesthesia problems: none Results Review: All pre-operative results and documents have been reviewed as part of the pre-operative evaluation. [facility] Past Medical History Medical History Encounter for insertion of mirena IUD Encounter for screening examination for sexually transmitted disease Colon cancer Bowel habit changes Abnormal CT scan, colon Abdominal pain Screening mammogram, encounter for Encounter for IUD removal 02/15/12 Mirena removal/reinsertion-- IUD 12/28/17 Mirena removal/reinsertion-- IUD 07/17/18 Mirena removal Encounter for IUD insertion 03/02/07 Mirena insertion 02/15/12 Mirena removal/reinsertion-- IUD 12/28/17 Mirena removal/reinsertion-- IUD Miscarriage 06/04/05 suction d&c Staph infection (~09/2002) finger Lymph node abscess (~1980) Bone infection (~1979) Abnormal Pap smear of cervix 08/14/12 ASCUS (+) HPV - RECURRENT ABNORMAL HX Surgical History Surgical History History of incisional hernia repair 06/22/2023 - robotic assisted repair supraumbilical incisional hernia and umbilical hernia with total defect measuring [address] Shahnaz Hathaway History of gynecological procedure (02/15/23) mirena IUD insertion S/P colectomy hand assisted laparoscopic sigmoid colectomy, repair of incarcerated umbilical hernia 06/01/22 History of D&C History of colposcopy with cervical biopsy 07/21/11 Family History Family History Grandparent Diabetes mellitus maternal grandmother Hypertension maternal grandfather Carcinoma of colon maternal grandfather Father Alcohol abuse Cirrhosis of liver Other Malignant neoplasm of prostate Social History Social History Social History: She is single and has 2 children . She is current unemployed due to her illness. 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 She has a significant other. 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 Gender identity (if verbalized by the patient): Female Sexual Orientation (if Verbalized by the Patient): Straight or Heterosexual Spiritual care concerns: No Anes - Eval Final PreProcedure Day of Procedure 03/07/24 17:31 Patient weight: normal Heart: regular rate and rhythm Lungs: clear to auscultation Airway: Mallampati scale class II Neurological: alert and oriented Last oral intake: >/= 8 hours ASA classification: II Emergent: yes Anesthetic plan: proceed Anesthesia type and monitoring: general ETT and standard monitoring Results Review: All pre-operative results and documents have been reviewed as part of the pre-operative evaluation. Recent notes reviewed. Pt w colon ca, s/p colectomy and anastomosis several years ago, now w N/V, abd pain and CT w stricture. Pt in otherwise good health without cp or sob w normal activity, walking 1-2 fos. Informed Consent: The patient's anesthetic plan and its attendant risks and benefits were discussed with the patient/family/POA. Questions were solicited and answers provided to the satisfaction of the patient/family/POA.
[2024-03-07] MEDS: KCL 20 MEQ/SW 100 ML 100 ML 50 MEQ IVPB (17:36)
[2024-03-07] MEDS: LACTATED RINGERS 1,000 ML 30 ML IV CONT (17:38)
--- NOTE | 2024-03-07 18:02 | SUR.PREOP ---
1718 - Pt received lorazepam and morphine in ER. Patient oriented x4. Patient states that she consents to her mother providing surgical and blood consent on her behalf. Mother present at bedside to sign consent forms. RN to witness. MD Alvarez and anesthesia aware and have talked to patient in pre op.
--- NOTE | 2024-03-07 18:09 | WPDHPUPDATE1 ---
History and Physical Update Update Date/Time: 03/07/24 18:09 History and Physical has been reviewed, including an updated exam of the patient. There are NO changes in the patient's condition. Risks, benefits, and alternatives have been discussed and questions answered. Patient agrees to proceed with procedure.
[2024-03-07] MEDS: ceFAZolin 2 GM/D5W 50 ML 2 GM/50 ML BAG IVPB (18:22)
[2024-03-07] MEDS: metroNIDAZOLE 500 MG/ISO 100ML 500 MG/100 ML BAG 100 MG IVPB (18:31)
--- NOTE | 2024-03-07 20:28 | P.OP_ITS ---
Procedure Note - Detailed Date of Procedure 03/07/24 Pre-op Diagnosis Distal colonic obstruction, anastomotic stricture Post-op Diagnosis Same Procedure Performed Creation diverting transverse colostomy Surgeon Héctor Alvarez MD [employer] Muriel Turner [facility] Anesthesia General Indications Patient began having lower abdominal pain 3 days ago. This became worse and she was out of town but came home. She came to the emergency room today and plain films suggested distal colonic obstruction. She has a history of a sigmoid colon resection in May of 2022 for stage III colon cancer. She had a Hypaque enema which showed stricture at the anastomotic site, etiology unclear. She is taken to surgery now for diverting transverse colostomy to relieve the colonic obstruction. Findings Very dilated transverse colon. Description of Procedure Patient was taken to surgery and induced into general anesthesia. The abdomen is prepped and draped. Palpation of the midline of the abdomen above her previous hernia repair scar was carried out. The general location of the transverse colon was noted. Midline incision in this area was then carried out as well. Dissection was carried down through subcutaneous and to the midline fascia. Midline fascia was then opened the length of the incision. Omentum was between the incision and the transverse colon. I pulled up and divided some of the omentum and then eventually I was able to mobilize the midportion of the transverse colon and bring it up and out the incision. The transverse colon was quite healthy but extremely distended. I placed most of the transverse colon back in the abdomen leaving only the portion necessary for the colostomy creation. I then used 0 PDS and placed [id number] mattress sutures in the fascia both above and below the transverse colon. I made an incision in the fascia angled slightly towards the distal limb. This incision was carried out across the entire anti mesenteric transverse colon. I then matured both the mucous fistula and and the transverse colostomy and with 4-0 chromic interrupted suture of full-thickness bowel to full-thickness skin. All looked good. I placed a finger down the efferent limb and was able to pass easily into the more proximal transverse colon. I cut the appliance to the appropriate size and placed it over the peristomal skin. Bag was attached to the appliance. Patient was then awakened and taken to recovery in good condition. Sponge and needle counts were correct x2. Estimated Blood Loss -5 Drains Yes (Nasogastric tube) Packing No Pathology None sent Complications None Condition Stable Disposition PACU [facility] Billing Surgery - Charge Forward: Surgery Billing (Creation diverting transverse colostomy)
--- NOTE | 2024-03-07 21:04 | ADMGEN ---
This patient, Rodney Schultz, was admitted to Medical Room 254-01. Patient/family oriented to hospital policies and general routines including ID bracelet, bed and alarms, visiting hours, pain management, procedures, bathroom and other care routines, personal items, smoking policy, room service/diet, and visiting hours. Information on how to activate the Rapid Response Team has been discussed. Patient/Family are encouraged to report perceived risks to care and to ask questions if they do not understand what they are told or what they should do.
[2024-03-07] MEDS: LACTATED RINGERS 1,000 ML 100 ML IV CONT (21:05)
[2024-03-07] MEDS: FAMOTIDINE 20 MG/2 ML VIAL IV PUSH (21:05)
[2024-03-07] MEDS: CEFEPIME 2 GM/NS 50 ML 2 GM/50 ML BAG IVPB (21:06)
[2024-03-08 02:14] VITALS: BP 116/65; PULSE 79; RESP 20; TEMP 37.3; O2SAT 98
[2024-03-08] MEDS: metroNIDAZOLE 500 MG/ISO 100ML 500 MG/100 ML BAG 100 MG IVPB ×3 (02:26→17:36)
[2024-03-08] MEDS: HYDROmorphone HCL INJ (*CRX) 1 MG/ML SYR 0.5 MG IV PUSH ×3 (02:28→13:20)
[2024-03-08] MEDS: BENZOCAINE/MENTHOL (*BKC) 18 EA LOZENGE 1 LOZENGE PO (02:31)
[2024-03-08] MEDS: CEFEPIME 2 GM/NS 50 ML 2 GM/50 ML BAG IVPB ×3 (05:29→21:15)
[2024-03-08 06:16] VITALS: BP 114/64; PULSE 74; RESP 20; TEMP 36.8; O2SAT 100
[2024-03-08 06:29] LABS: Hemoglobin 11.5 g/dL (12.0-15.0); Mean Corpuscular HGB Conc 34.8 g/dl (32-36); Mean Corpuscular Hemoglobin 31.5 pg (26-34); Mean Corpuscular Volume 90.4 fl (80-100); Mean Platelet Volume 9.2 fl (7.4-10.4); Platelet Count Result 226 k/mm3 (150-375); Red Blood Count 3.65 M/mm3 (4.2-5.4); Red Cell Distribution Width 12.2 % (11.5-14.5); White Blood Count 5.2 K/mm3 (4.5-10.0)
[2024-03-08 06:40] LABS: Anion Gap 5 mmol/L (4-12); Blood Urea Nitrogen 9 mg/dL (7-17); Calcium 7.8 mg/dL (8.4-10.2); Carbon Dioxide 20 mmol/L (22-30); Chloride 111 mmol/L (98-107); Estimated CRCL calculation 82 ml/min; Estimated Glomerular Filt Rate > 60; Glucose 95 mg/dL (65-110); Potassium 3.4 mmol/L (3.4-5.0); Sodium 136 mmol/L (137-145)
--- NOTE | 2024-03-08 08:19 | WPDANESPN ---
Anes - Prog Note Post-Op Date/Time: 03/08/24 08:19 Vital Signs: Last Vital Signs Temp 36.8 C 03/08/24 06:16 Pulse 74 03/08/24 06:16 Resp 20 03/08/24 06:16 BP 114/64 03/08/24 06:16 Pulse Ox 100 03/08/24 06:16 O2 Del Method Room Air 03/07/24 20:25 O2 Flow Rate 6 03/07/24 19:45 Pain Score (VAS): 0 I/O: Intake & Output 03/07/24 03/08/24 03/08/24 23:59 07:59 15:59 Intake Total 450 150 Output Total 700 1400 Balance -250 -1250 Laboratory Tests 03/08/24 06:19 03/08/24 06:19 03/07/24 03/07/24 03/07/24 12:45 13:05 13:47 WBC 7.4 RBC 4.23 Hgb 13.1 D Hct 37.5 MCV 88.7 MCH 31.0 MCHC 34.9 RDW 12.4 Plt Count 244 MPV 9.8 Immature Gran % (Auto) 0.1 Neut % (Auto) 79.4 H Lymph % (Auto) 8.6 L [place] % (Auto) 10.7 H Eos % (Auto) 0.5 Baso % (Auto) 0.7 Lymph # (Auto) 0.64 L [place] # (Auto) 0.8 H Eos # (Auto) 0.0 Baso # (Auto) 0.1 Abs Immat Gran (auto) 0.01 Absolute Neuts (auto) 5.9 Absolute Nucleated RBC 0.000 Nucleated RBC % 0.0 Sodium 132 L Potassium 3.3 L Chloride 108 H Carbon Dioxide 19 L Anion Gap 5 BUN 11 D Creatinine 0.60 L Estim Creat Clear Calc 82 Estimated GFR > 60 Glucose 106 Calcium 8.6 Total Bilirubin 1.1 AST 24 ALT 13 Alkaline Phosphatase 91 Total Protein 7.0 Albumin 3.7 Lipase 39 Urine Color Dark yellow Urine Appearance Cloudy H Urine pH 6.0 Ur Specific [place] 1.022 Urine Protein 1+ H Urine Glucose (UA) Negative Urine Ketones 3+ H Ur Blood (Man) Negative Urine Nitrate Negative Urine Bilirubin Negative Urine Urobilinogen 1.0 Add Ur Microanalysis Reviewed Leukocyte Esterase Rfl Negative Urine RBC 3-5 H Urine WBC 6-10 H Ur Squamous Epith Cells Many H Urine Bacteria 2+ H Urine Casts 3-5 POC Urine HCG, Qual Negative 03/08/24 06:19 WBC 5.2 RBC 3.65 L Hgb 11.5 L Hct 33.0 L MCV 90.4 MCH 31.5 MCHC 34.8 RDW 12.2 Plt Count 226 MPV 9.2 Immature Gran % (Auto) Neut % (Auto) Lymph % (Auto) [place] % (Auto) Eos % (Auto) Baso % (Auto) Lymph # (Auto) [place] # (Auto) Eos # (Auto) Baso # (Auto) Abs Immat Gran (auto) Absolute Neuts (auto) Absolute Nucleated RBC Nucleated RBC % Sodium 136 L Potassium 3.4 Chloride 111 H Carbon Dioxide 20 L Anion Gap 5 BUN 9 Creatinine 0.60 L Estim Creat Clear Calc 82 Estimated GFR > 60 Glucose 95 Calcium 7.8 L Total Bilirubin AST ALT Alkaline Phosphatase Total Protein Albumin Lipase Urine Color Urine Appearance Urine pH Ur Specific [place] Urine Protein Urine Glucose (UA) Urine Ketones Ur Blood (Man) Urine Nitrate Urine Bilirubin Urine Urobilinogen Add Ur Microanalysis Leukocyte Esterase Rfl Urine RBC Urine WBC Ur Squamous Epith Cells Urine Bacteria Urine Casts POC Urine HCG, Qual Patient Feedback: Patient satisfied with anesthetic care.
[2024-03-08] MEDS: LACTATED RINGERS 1,000 ML 100 ML IV CONT ×2 (09:20→21:16)
[2024-03-08] MEDS: FAMOTIDINE 20 MG/2 ML VIAL IV PUSH (09:21)
[2024-03-08] MEDS: ENOXAPARIN 40 MG/0.4 ML SYRINGE SUB-Q (09:21)
[2024-03-08 10:16] VITALS: BP 118/62; PULSE 72; RESP 19; TEMP 36.6; O2SAT 100
--- NOTE | 2024-03-08 11:02 | PM.IMPN ---
Progress Note: A&P Assessment and Plan (1) Large bowel obstruction: Code(s): K56.609 - Unspecified intestinal obstruction, unspecified as to partial versus complete obstruction Status: Acute Assessment and Plan: Abdomen x-ray shown NG tube in the stomach, mildly distended colon consistent with distal obstruction Water-soluble enema was done showing a stricture at the rectal anastomosis with severe partial obstruction General surgery was consulted and took patient for diverting colostomy Continue nausea control Continue pain control NG tube to low intermittent suction Continue NPO status 1/3 Diverting colostomy with output noted in bag General surgery following Plan to remove NG tube and advance to full liquids today per general surgery team (2) S/P colectomy: Code(s): Z90.49 - Acquired absence of other specified parts of digestive tract Status: Acute Assessment and Plan: Patient had laparoscopic sigmoid colectomy for repair of an incarcerated umbilical hernia on 06/01/[address] Hathaway. She did have complication back in June of this year with an incisional hernia that developed requiring surgical repair of the supraumbilical incisional hernia and umbilical hernia. This was performed on 06/22/[address] Hathaway. She had a colonoscopy performed on 11/29/2023 which shown a colocolonic anastomosis present in the sigmoid colon (3) Colon cancer: Qualifiers: Colon location: unspecified part of colon Qualified Code(s): C18.9 - Malignant neoplasm of colon, unspecified Code(s): C18.9 - Malignant neoplasm of colon, unspecified Status: Acute Assessment and Plan: Patient was found to have a sigmoid colon mass that ended up being stage III colon cancer back in May of 2022 requiring laparoscopic sigmoid colectomy She was originally treated by Dr. Moluton and Dr. Singleton at [facility] Time Spent With Patient Time with patient: 15 - 25 minutes Subjective Date/time seen: 03/08/24 11:02 Interval history: Interval history: This is a 44-year-old female with a significant past medical history of stage III colon cancer status post colectomy and reanastomosis who presented to the hospital with complaint of abdominal pain. Patient reports that she has not had a bowel movement since 03/04/25 and started having cramping on New Years ellen. She was initially seen at an ER in [facility] and had a CT scan that shown stool throughout the colon and stricture at the anastomosis site. She was offered surgery there but declined. She then drove herself here as she had the original surgery with Dr. Hathaway on 06/22/23 of this year. NG tube was placed in our ED due to the development of nausea and vomiting. She denies any fever, chills,diarrhea, chest pain, or shortness of breath. She endorses nausea, vomiting, and abdominal pain. Workup in abdomen x-ray which showed NG tube in the stomach, mildly distended colon consistent with distal obstruction. Initial labs showed a normal white blood cell count of 7.4, sodium 132, potassium 3.3, bicarb 19. A UA was obtained and showed cloudy appearance, 1+ urine protein, 3+ urine ketones, 3-5 urine RBC, 6-10 urine WBC, many urine squamous epithelial cells, 2+ urine bacteria. test was negative. Urine culture was obtained and pending. EKG showed sinus rhythm with a rate of 66, QTC 458. Patient was given 1 L of normal saline, Ativan, morphine, and Zofran while in the ED. General surgery was consulted and took patient to the OR for creation of diverting transverse colostomy by Dr. Alvarez. Subjective: Patient states she is feeling much better today. Family is at the bedside. Colostomy has stool present. She states her pain is well controlled. Labs reviewed. Review of Systems Review of Systems: All systems reviewed & are unremarkable except as noted in HPI and below Constitutional: Constitutional: Reports as per HPI and Reports no additional constitutional complaints Eyes: Eyes: Reports as per HPI and Reports no additional eye complaints ENT: Reports system reviewed and no additional complaints, except as documented and Reports as per HPI Cardiovascular: Cardiovascular: Reports as per HPI and Reports no additional cardiovascular complaints Respiratory: Respiratory: Reports no additional respiratory complaints Gastrointestinal: Gastrointestinal: Reports no additional gastrointestinal complaints Genitourinary: Genitourinary: Reports no additional female genitourinary complaints and Reports as per HPI Musculoskeletal: Musculoskeletal: Reports no additional musculoskeletal complaints and Reports as per HPI Integumentary/Breasts: Skin/Breast: Reports as per HPI Neurologic: Reports system reviewed and no additional complaints, except as documented and Reports as per HPI Psychiatric: Psychiatric: Reports no additional psychiatric complaints and Reports as per HPI Exam Narrative: General: In no acute distress, well nourished Cardiac: Normal S1 and S2. No murmur, gallops or friction rubs, peripheral pulses intact. Respiratory: Lungs clear to auscultation, no adventitious lung sounds Gastrointestinal: soft, non-distended, non-tender, normoactive bowel sounds, diverting colostomy with pink stoma--stool noted in bag, NG tube to LIS : voiding without difficulty. Neuro: Alert and oriented x4 Objective Data Vital Signs Vital Signs: Vital Signs - 24 hr 03/07/24 11:14 03/07/24 11:46 03/07/24 13:20 Temperature 98.3 F Pulse Rate 82 84 Respiratory Rate 18 Blood Pressure 108/76 Pulse Oximetry 100 98 100 Oxygen Delivery Oxygen Flow Rate 03/07/24 13:30 03/07/24 13:45 03/07/24 14:06 Temperature Pulse Rate 83 83 77 Respiratory Rate 18 Blood Pressure 104/87 Pulse Oximetry 100 100 Oxygen Delivery Oxygen Flow Rate 03/07/24 14:15 03/07/24 14:30 03/07/24 15:57 Temperature Pulse Rate 82 78 76 Respiratory Rate Blood Pressure Pulse Oximetry 99 Oxygen Delivery Oxygen Flow Rate 03/07/24 16:00 03/07/24 16:15 03/07/24 17:15 Temperature 97.2 F L Pulse Rate 74 74 72 Respiratory Rate 16 14 Blood Pressure 110/76 145/89 H Pulse Oximetry 100 100 Oxygen Delivery Room Air Oxygen Flow Rate 03/07/24 19:30 03/07/24 19:45 03/07/24 20:00 Temperature 98.1 F Pulse Rate 83 76 75 Respiratory Rate 16 16 16 Blood Pressure 134/87 132/86 138/87 Pulse Oximetry 100 100 100 Oxygen Delivery Simple Face Mask Simple Face Mask Room Air Oxygen Flow Rate 6 6 03/07/24 20:15 03/07/24 20:25 03/07/24 20:46 Temperature 99.1 F 98.7 F Pulse Rate 73 75 75 Respiratory Rate 14 14 16 Blood Pressure 133/86 132/88 133/83 Pulse Oximetry 96 96 99 Oxygen Delivery Room Air Room Air Oxygen Flow Rate 03/07/24 21:15 03/07/24 22:16 03/08/24 02:14 Temperature 97.8 F 98.7 F 99.2 F Pulse Rate 83 79 79 Respiratory Rate 16 16 20 Blood Pressure 141/86 H 129/79 116/65 Pulse Oximetry 100 99 98 Oxygen Delivery Oxygen Flow Rate 03/08/24 06:16 Temperature 98.2 F Pulse Rate 74 Respiratory Rate 20 Blood Pressure 114/64 Pulse Oximetry 100 Oxygen Delivery Oxygen Flow Rate Intake/Output Intake/Output: Intake & Output 03/05/24 03/06/24 03/07/24 03/08/24 23:59 23:59 23:59 23:59 Intake Total 1450 1150 Output Total 780 1400 Balance 670 -250 Meds/Results Medications: Active Medications Generic Name Dose Route Start Last Admin Trade Name Freq PRN Reason Stop Dose Admin Benzocaine 1 lozenge 03/07/24 23:06 03/08/24 02:31 Benzocaine/Menthol (*Bkc) 18 Ea Lozenge PO 1 lozenge PRN PRN Administration Sore Throat Enoxaparin Sodium 40 mg 03/08/24 09:00 03/08/24 09:21 Enoxaparin 40 Mg/0.4 Ml Syringe SUB-Q 40 mg DAILY DIANA Administration Famotidine 20 mg 03/07/24 21:00 03/08/24 09:21 Famotidine 20 Mg/2 Ml Vial IV PUSH 20 mg Q12HR DIANA Administration Hydromorphone HCl 1 mg 03/07/24 20:31 Hydromorphone Hcl Inj (*Crx) 1 Mg/Ml Syr IV PUSH Q2H PRN Breakthrough Pain Rated 7-10 or NPO Hydromorphone HCl 0.5 mg 03/07/24 20:31 03/08/24 09:19 Hydromorphone Hcl Inj (*Crx) 1 Mg/Ml Syr IV PUSH 0.5 mg Q2H PRN Administration Breakthrough Pain Rated 4-6 or NPO Lactated Ringer's 1,000 mls @ 100 mls/hr 03/07/24 20:31 03/08/24 09:20 Lr - Lactated Ringers Iv IV CONT 100 mls/hr .Q10H DIANA Administration Ibuprofen 800 mg in 200 mls @ 400 mls/hr 03/07/24 20:31 Caldolor 800 Mg/200 Ml IVPB Q6H PRN Breakthrough Pain Rated 1-3 or NPO Cefepime HCl 2 gm in 50 mls @ 100 mls/hr 03/07/24 22:00 03/08/24 05:59 Maxipime 2 Gm/Ns 50 Ml IVPB Infused Q8H DIANA Infusion Metronidazole 500 mg in 100 mls @ 100 mls/hr 03/08/24 02:00 03/08/24 09:22 Flagyl 500 Mg/Iso Soln 100 Ml IVPB 100 mls/hr Q8H DIANA Administration Naloxone HCl 0.1 mg 03/07/24 20:31 Naloxone Hcl 0.4 Mg/Ml Vial IV PUSH Q2M PRN Opiate Reversal Ondansetron HCl 4 mg 03/07/24 14:48 03/07/24 16:40 Ondansetron Inj 4 Mg/2 Ml Vial IV PUSH 4 mg Q4H PRN Administration Nausea Radiology Results: ITS Impressions Abdomen X-Ray 03/07/24 13:54 IMPRESSION: 1. Nasogastric tube tip in the stomach. 2. Mildly distended colon, consistent with distal obstruction. Enema w/Water Soluble 03/07/24 15:13 IMPRESSION: 1. Stricture at the rectal anastomosis with severe partial obstruction. Labs Labs: Laboratory Results - last 24 hr 03/07/24 03/07/24 03/07/24 12:45 13:05 13:47 WBC 7.4 RBC 4.23 Hgb 13.1 D Hct 37.5 MCV 88.7 MCH 31.0 MCHC 34.9 RDW 12.4 Plt Count 244 MPV 9.8 Immature Gran % (Auto) 0.1 Neut % (Auto) 79.4 H Lymph % (Auto) 8.6 L [place] % (Auto) 10.7 H Eos % (Auto) 0.5 Baso % (Auto) 0.7 Lymph # (Auto) 0.64 L [place] # (Auto) 0.8 H Eos # (Auto) 0.0 Baso # (Auto) 0.1 Abs Immat Gran (auto) 0.01 Absolute Neuts (auto) 5.9 Absolute Nucleated RBC 0.000 Nucleated RBC % 0.0 Sodium 132 L Potassium 3.3 L Chloride 108 H Carbon Dioxide 19 L Anion Gap 5 BUN 11 D Creatinine 0.60 L Estim Creat Clear Calc 82 Estimated GFR > 60 Glucose 106 Calcium 8.6 Total Bilirubin 1.1 AST 24 ALT 13 Alkaline Phosphatase 91 Total Protein 7.0 Albumin 3.7 Lipase 39 Urine Color Dark yellow Urine Appearance Cloudy H Urine pH 6.0 Ur Specific [place] 1.022 Urine Protein 1+ H Urine Glucose (UA) Negative Urine Ketones 3+ H Ur Blood (Man) Negative Urine Nitrate Negative Urine Bilirubin Negative Urine Urobilinogen 1.0 Add Ur Microanalysis Reviewed Leukocyte Esterase Rfl Negative Urine RBC 3-5 H Urine WBC 6-10 H Ur Squamous Epith Cells Many H Urine Bacteria 2+ H Urine Casts 3-5 POC Urine HCG, Qual Negative 03/08/24 06:19 WBC 5.2 RBC 3.65 L Hgb 11.5 L Hct 33.0 L MCV 90.4 MCH 31.5 MCHC 34.8 RDW 12.2 Plt Count 226 MPV 9.2 Immature Gran % (Auto) Neut % (Auto) Lymph % (Auto) [place] % (Auto) Eos % (Auto) Baso % (Auto) Lymph # (Auto) [place] # (Auto) Eos # (Auto) Baso # (Auto) Abs Immat Gran (auto) Absolute Neuts (auto) Absolute Nucleated RBC Nucleated RBC % Sodium 136 L Potassium 3.4 Chloride 111 H Carbon Dioxide 20 L Anion Gap 5 BUN 9 Creatinine 0.60 L Estim Creat Clear Calc 82 Estimated GFR > 60 Glucose 95 Calcium 7.8 L Total Bilirubin AST ALT Alkaline Phosphatase Total Protein Albumin Lipase Urine Color Urine Appearance Urine pH Ur Specific [place] Urine Protein Urine Glucose (UA) Urine Ketones Ur Blood (Man) Urine Nitrate Urine Bilirubin Urine Urobilinogen Add Ur Microanalysis Leukocyte Esterase Rfl Urine RBC Urine WBC Ur Squamous Epith Cells Urine Bacteria Urine Casts POC Urine HCG, Qual Quality VTE Prophylaxis VTE prophylaxis: mechanical ordered
[2024-03-08 14:16] VITALS: BP 140/79; PULSE 73; RESP 18; TEMP 36.8; O2SAT 98
--- NOTE | 2024-03-08 15:06 | PM.PNGS ---
Progress Note: A&P Assessment and Plan (1) Large bowel obstruction: Code(s): K56.609 - Unspecified intestinal obstruction, unspecified as to partial versus complete obstruction Status: Acute Assessment and Plan: Doing much better. Bowel function returning. Will discontinue nasogastric tube and start full liquids. (2) Colostomy in place: Code(s): Z93.3 - Colostomy status Status: Acute Assessment and Plan: Working well postop day 1. Subjective Subjective Date/Time Seen: 03/08/24 15:06 Patient reports: feels better, voiding w/o difficulty, bowel movement and afebrile Exam Const: General: comfortable, alert and awake GI: Inspection: incision (Stoma draining air and stool) GI Palp: Yes Soft to palpation and Yes Tenderness to palpation present (GI) (Mildly tender) Auscultation: normal bowel sounds Objective Data Vital Signs Vital Signs: Vital Signs - 24 hr 03/07/24 15:57 03/07/24 16:00 03/07/24 16:15 Temperature Pulse Rate 76 74 74 Respiratory Rate 16 Blood Pressure 110/76 Pulse Oximetry 100 Oxygen Delivery Oxygen Flow Rate 03/07/24 17:15 03/07/24 19:30 03/07/24 19:45 Temperature 36.2 C L 36.7 C Pulse Rate 72 83 76 Respiratory Rate 14 16 16 Blood Pressure 145/89 H 134/87 132/86 Pulse Oximetry 100 100 100 Oxygen Delivery Room Air Simple Face Mask Simple Face Mask Oxygen Flow Rate 6 6 03/07/24 20:00 03/07/24 20:15 03/07/24 20:25 Temperature 37.3 C Pulse Rate 75 73 75 Respiratory Rate 16 14 14 Blood Pressure 138/87 133/86 132/88 Pulse Oximetry 100 96 96 Oxygen Delivery Room Air Room Air Room Air Oxygen Flow Rate 03/07/24 20:46 03/07/24 21:15 03/07/24 22:16 Temperature 37.1 C 36.6 C 37.1 C Pulse Rate 75 83 79 Respiratory Rate 16 16 16 Blood Pressure 133/83 141/86 H 129/79 Pulse Oximetry 99 100 99 Oxygen Delivery Oxygen Flow Rate 03/08/24 02:14 03/08/24 06:16 03/08/24 10:16 Temperature 37.3 C 36.8 C 36.6 C Pulse Rate 79 74 72 Respiratory Rate 20 20 19 Blood Pressure 116/65 114/64 118/62 Pulse Oximetry 98 100 100 Oxygen Delivery Oxygen Flow Rate 03/08/24 14:16 Temperature 36.8 C Pulse Rate 73 Respiratory Rate 18 Blood Pressure 140/79 Pulse Oximetry 98 Oxygen Delivery Oxygen Flow Rate Intake/Output Intake/Output: Intake & Output 03/05/24 03/06/24 03/07/24 03/08/24 23:59 23:59 23:59 23:59 Intake Total 1450 1250 Output Total 780 1400 Balance 670 -150 Meds/Results Medications: Active Medications Generic Name Dose Route Start Last Admin Trade Name Freq PRN Reason Stop Dose Admin Benzocaine 1 lozenge 03/07/24 23:06 03/08/24 02:31 Benzocaine/Menthol (*Bkc) 18 Ea Lozenge PO 1 lozenge PRN PRN Administration Sore Throat Enoxaparin Sodium 40 mg 03/08/24 09:00 03/08/24 09:21 Enoxaparin 40 Mg/0.4 Ml Syringe SUB-Q 40 mg DAILY DIANA Administration Famotidine 20 mg 03/07/24 21:00 03/08/24 09:21 Famotidine 20 Mg/2 Ml Vial IV PUSH 20 mg Q12HR DIANA Administration Hydromorphone HCl 1 mg 03/07/24 20:31 Hydromorphone Hcl Inj (*Crx) 1 Mg/Ml Syr IV PUSH Q2H PRN Breakthrough Pain Rated 7-10 or NPO Hydromorphone HCl 0.5 mg 03/07/24 20:31 03/08/24 13:20 Hydromorphone Hcl Inj (*Crx) 1 Mg/Ml Syr IV PUSH 0.5 mg Q2H PRN Administration Breakthrough Pain Rated 4-6 or NPO Lactated Ringer's 1,000 mls @ 100 mls/hr 03/07/24 20:31 03/08/24 09:20 Lr - Lactated Ringers Iv IV CONT 100 mls/hr .Q10H DIANA Administration Ibuprofen 800 mg in 200 mls @ 400 mls/hr 03/07/24 20:31 Caldolor 800 Mg/200 Ml IVPB Q6H PRN Breakthrough Pain Rated 1-3 or NPO Cefepime HCl 2 gm in 50 mls @ 100 mls/hr 03/07/24 22:00 03/08/24 13:13 Maxipime 2 Gm/Ns 50 Ml IVPB 100 mls/hr Q8H DIANA Administration Metronidazole 500 mg in 100 mls @ 100 mls/hr 03/08/24 02:00 03/08/24 10:22 Flagyl 500 Mg/Iso Soln 100 Ml IVPB Infused Q8H DIANA Infusion Naloxone HCl 0.1 mg 03/07/24 20:31 Naloxone Hcl 0.4 Mg/Ml Vial IV PUSH Q2M PRN Opiate Reversal Ondansetron HCl 4 mg 03/07/24 14:48 03/07/24 16:40 Ondansetron Inj 4 Mg/2 Ml Vial IV PUSH 4 mg Q4H PRN Administration Nausea Radiology Results: ITS Impressions Abdomen X-Ray 03/07/24 13:54 IMPRESSION: 1. Nasogastric tube tip in the stomach. 2. Mildly distended colon, consistent with distal obstruction. Enema w/Water Soluble 03/07/24 15:13 IMPRESSION: 1. Stricture at the rectal anastomosis with severe partial obstruction. Labs Labs: Laboratory Results - last 24 hr 03/08/24 06:19 WBC 5.2 RBC 3.65 L Hgb 11.5 L Hct 33.0 L MCV 90.4 MCH 31.5 MCHC 34.8 RDW 12.2 Plt Count 226 MPV 9.2 Sodium 136 L Potassium 3.4 Chloride 111 H Carbon Dioxide 20 L Anion Gap 5 BUN 9 Creatinine 0.60 L Estim Creat Clear Calc 82 Estimated GFR > 60 Glucose 95 Calcium 7.8 L
[2024-03-08] MEDS: oxyCODONE/ACETAMINOPHEN (*CRX) 5-325 MG TABLET 1 TABLET PO (17:39)
[2024-03-08 18:16] VITALS: BP 138/82; PULSE 70; RESP 18; TEMP 36.6; O2SAT 99
[2024-03-08] MEDS: FAMOTIDINE 20 MG TABLET PO (21:12)
[2024-03-08] MEDS: HYDROcodone/acetaminophen (*CRX) 7.5-325 MG TABLET 1 TAB PO (21:13)
[2024-03-08 21:37] VITALS: BP 129/82; PULSE 77; RESP 14; TEMP 36.6; O2SAT 100
[2024-03-08] MEDS: HYDROmorphone HCL INJ (*CRX) 1 MG/ML SYR IV PUSH (23:54)
[2024-03-09 00:34] VITALS: BP 112/75; PULSE 72; RESP 14; TEMP 36.5; O2SAT 99
[2024-03-09] MEDS: metroNIDAZOLE 500 MG/ISO 100ML 500 MG/100 ML BAG 100 MG IVPB ×2 (02:27→09:24)
--- NOTE | 2024-03-09 04:26 | PC.NURSE ---
DOCUMENTATION ON THIS PT FOR THE EVENING 7P-7A 1-3 CHARTED BY GRADUATE NURSE VETO WING WHO IS ON ORIENTATION AND CHECKED BY RN LARRY REYES
[2024-03-09] MEDS: CEFEPIME 2 GM/NS 50 ML 2 GM/50 ML BAG IVPB (05:06)
[2024-03-09 05:18] VITALS: BP 116/74; PULSE 65; RESP 16; TEMP 36.6; O2SAT 100
[2024-03-09 06:10] LABS: Basophils Percent Auto 0.5 % (0.2-1.2); Eosinophils Absolute Auto 0.1 K/mm3 (0-0.3); Eosinophils Percent Auto 3.1 % (0-4.4); Hematocrit 31.7 % (37.0-47.0); Hemoglobin 10.7 g/dL (12.0-15.0); Immature Granulocyte Absolute 0.02 K/mm3 (0.00-0.031); Immature Granulocyte Percent A 0.5 % (0-0.5); Lymphocytes Absolute Auto 1.18 K/mm3 (0.9-3.2); Mean Corpuscular HGB Conc 33.8 g/dl (32-36); Mean Corpuscular Hemoglobin 30.5 pg (26-34); Mean Corpuscular Volume 90.3 fl (80-100); Mean Platelet Volume 9.8 fl (7.4-10.4); Monocytes Absolute Auto 0.4 K/mm3 (0.1-0.6); Neutrophils Absolute Auto 2.5 K/mm3 (1.3-6.7); Neutrophils Percent Auto 57.9 % (45.5-73.1); Platelet Count Result 217 k/mm3 (150-375); Red Blood Count 3.51 M/mm3 (4.2-5.4); Red Cell Distribution Width 12.3 % (11.5-14.5); White Blood Count 4.2 K/mm3 (4.5-10.0)
[2024-03-09] MEDS: IBUPROFEN IV 800 MG/200 ML 800 MG/200 ML BAG 400 MG IVPB (06:14)
[2024-03-09 06:26] LABS: Alanine Aminotransferase 9 U/L (6-35); Albumin Level 2.9 g/dL (3.5-5.1); Alkaline Phosphatase 54 U/L (38-126); Anion Gap 1 mmol/L (4-12); Aspartate Amino Transferase 19 U/L (14-36); Bilirubin,Total 0.5 mg/dL (0.2-1.3); Blood Urea Nitrogen 6 mg/dL (7-17); Calcium 7.8 mg/dL (8.4-10.2); Carbon Dioxide 25 mmol/L (22-30); Chloride 108 mmol/L (98-107); Estimated CRCL calculation 97 ml/min; Estimated Glomerular Filt Rate > 60; Glucose 83 mg/dL (65-110); Sodium 134 mmol/L (137-145)
--- NOTE | 2024-03-09 08:47 | P.PNIM_ITS ---
Progress Note: A&P Assessment and Plan (1) Large bowel obstruction: Code(s): K56.609 - Unspecified intestinal obstruction, unspecified as to partial versus complete obstruction Status: Acute Assessment and Plan: * Abdomen x-ray shown NG tube in the stomach, mildly distended colon consistent with distal obstruction * Water-soluble enema was done showing a stricture at the rectal anastomosis with severe partial obstruction * General surgery was consulted and took patient for diverting colostomy * Continue nausea control * Continue pain control * NG tube to low intermittent suction * Continue NPO status 1/3 * Diverting colostomy with output noted in bag * General surgery following * Plan to remove NG tube and advance to full liquids today per general surgery team (2) S/P colectomy: Code(s): Z90.49 - Acquired absence of other specified parts of digestive tract Status: Acute Assessment and Plan: * Patient had laparoscopic sigmoid colectomy for repair of an incarcerated umbilical hernia on 06/01/[address] Hathaway. She did have complication back in June of this year with an incisional hernia that developed requiring surgical repair of the supraumbilical incisional hernia and umbilical hernia. This was performed on 06/22/[address] Hathaway. * She had a colonoscopy performed on 11/29/2023 which shown a colocolonic anastomosis present in the sigmoid colon (3) Colon cancer: Qualifiers: Colon location: unspecified part of colon Qualified Code(s): C18.9 - Malignant neoplasm of colon, unspecified Code(s): C18.9 - Malignant neoplasm of colon, unspecified Status: Acute Assessment and Plan: * Patient was found to have a sigmoid colon mass that ended up being stage III colon cancer back in May of 2022 requiring laparoscopic sigmoid colectomy * She was originally treated by Dr. Moulton and Dr. Singleton at [facility] Subjective Date/time seen: 03/09/24 08:47 Interval history: Interval history: This is a 44-year-old female with a significant past medical history of stage III colon cancer status post colectomy and reanastomosis who presented to the hospital with complaint of abdominal pain. Patient reports that she has not had a bowel movement since 03/04/25 and started having cramping on New Years ellen. She was initially seen at an ER in [facility] and had a CT scan that shown stool throughout the colon and stricture at the anastomosis site. She was offered surgery there but declined. She then drove herself here as she had the original surgery with Dr. Hathaway on 06/22/23 of this year. NG tube was placed in our ED due to the development of nausea and vomiting. She denies any fever, chills,diarrhea, chest pain, or shortness of breath. She endorses nausea, vomiting, and abdominal pain. Workup in abdomen x-ray which showed NG tube in the stomach, mildly distended colon consistent with distal obstruction. Initial labs showed a normal white blood cell count of 7.4, sodium 132, potassium 3.3, bicarb 19. A UA was obtained and showed cloudy appearance, 1+ urine protein, 3+ urine ketones, 3-5 urine RBC, 6-10 urine WBC, many urine squamous epithelial cells, 2+ urine bacteria. test was negative. Urine culture was obtained and pending. EKG showed sinus rhythm with a rate of 66, QTC 458. Patient was given 1 L of normal saline, Ativan, morphine, and Zofran while in the ED. General surgery was consulted and took patient to the OR for creation of diverting transverse colostomy by Dr. Alvarez. Subjective: pt is seen and examined. She is feeling better today. c/o headache which is chronic for her. NG can be removed per surgery and diet advanced to full liquids. Review of Systems Review of Systems: All systems reviewed & are unremarkable except as noted in HPI and below Constitutional: Constitutional: Reports as per HPI and Reports no additional constitutional complaints Eyes: Eyes: Reports as per HPI and Reports no additional eye complaints ENT: Reports system reviewed and no additional complaints, except as documented and Reports as per HPI Cardiovascular: Cardiovascular: Reports as per HPI and Reports no additional cardiovascular complaints Respiratory: Respiratory: Reports no additional respiratory complaints Gastrointestinal: Gastrointestinal: Reports no additional gastrointestinal c omplaints Genitourinary: Genitourinary: Reports no additional female genitourinary complaints and Reports as per HPI Musculoskeletal: Musculoskeletal: Reports no additional musculoskeletal complaints and Reports as per HPI Integumentary/Breasts: Skin/Breast: Reports as per HPI Neurologic: Reports system reviewed and no additional complaints, except as documented and Reports as per HPI Psychiatric: Psychiatric: Reports no additional psychiatric complaints and Reports as per HPI Exam Narrative: General: In no acute distress, well nourished Cardiac: Normal S1 and S2. No murmur, gallops or friction rubs, peripheral pulses intact. Respiratory: Lungs clear to auscultation, no adventitious lung sounds Gastrointestinal: soft, non-distended, non-tender, normoactive bowel sounds, diverting colostomy with pink stoma--stool noted in bag, NG tube to LIS : voiding without difficulty. Neuro: Alert and oriented x4 Objective Data Vital Signs Vital Signs: Vital Signs - 24 hr 03/08/24 10:16 03/08/24 14:16 03/08/24 18:16 Temperature 98 F 98.2 F 98 F Pulse Rate 72 73 70 Respiratory Rate 19 18 18 Blood Pressure 118/62 140/79 138/82 Pulse Oximetry 100 98 99 Oxygen Delivery 03/08/24 20:00 03/08/24 21:37 03/09/24 00:34 Temperature 97.8 F 97.7 F Pulse Rate 77 72 Respiratory Rate 14 14 Blood Pressure 129/82 112/75 Pulse Oximetry 100 99 Oxygen Delivery Room Air 03/09/24 05:18 Temperature 97.9 F Pulse Rate 65 Respiratory Rate 16 Blood Pressure 116/74 Pulse Oximetry 100 Oxygen Delivery Intake/Output Intake/Output: Intake & Output 03/06/24 03/07/24 03/08/24 03/09/24 23:59 23:59 23:59 23:59 Intake Total 1450 2942 750 Output Total 780 2250 Balance 670 692 750 Meds/Results Medications: Active Medications Generic Name Dose Route Start Last Admin Trade Name Freq PRN Reason Stop Dose Admin Acetaminophen 500 mg 03/08/24 16:01 Acetaminophen 500 Mg Tablet PO Q6H PRN Pain Rated 1-3 Hydrocodone Bitart/Acetaminophen 1 tab 03/08/24 16:01 03/08/24 21:13 Hydrocodone/Acetaminophen (*Crx) 7.5-325 Mg Tablet PO 1 tab Q4H PRN Administration Pain Rated 7-10 Benzocaine 1 lozenge 03/07/24 23:06 03/08/24 02:31 Benzocaine/Menthol (*Bkc) 18 Ea Lozenge PO 1 lozenge PRN PRN Administration Sore Throat Enoxaparin Sodium 40 mg 03/08/24 09:00 03/08/24 09:21 Enoxaparin 40 Mg/0.4 Ml Syringe SUB-Q 40 mg DAILY DIANA Administration Famotidine 20 mg 03/08/24 21:00 03/08/24 21:12 Famotidine 20 Mg Tablet PO 20 mg Q12HR DIANA Administration Hydromorphone HCl 1 mg 03/07/24 20:31 03/08/24 23:54 Hydromorphone Hcl Inj (*Crx) 1 Mg/Ml Syr IV PUSH 1 mg Q2H PRN Administration Breakthrough Pain Rated 7-10 or NPO Hydromorphone HCl 0.5 mg 03/07/24 20:31 03/08/24 13:20 Hydromorphone Hcl Inj (*Crx) 1 Mg/Ml Syr IV PUSH 0.5 mg Q2H PRN Administration Breakthrough Pain Rated 4-6 or NPO Lactated Ringer's 1,000 mls @ 100 mls/hr 03/07/24 20:31 03/08/24 21:16 Lr - Lactated Ringers Iv IV CONT 100 mls/hr .Q10H DIANA Administration Ibuprofen 800 mg in 200 mls @ 400 mls/hr 03/07/24 20:31 03/09/24 06:44 Caldolor 800 Mg/200 Ml IVPB Infused Q6H PRN Infusion Breakthrough Pain Rated 1-3 or NPO Cefepime HCl 2 gm in 50 mls @ 100 mls/hr 03/07/24 22:00 03/09/24 05:36 Maxipime 2 Gm/Ns 50 Ml IVPB Infused Q8H DIANA Infusion Metronidazole 500 mg in 100 mls @ 100 mls/hr 03/08/24 02:00 03/09/24 03:27 Flagyl 500 Mg/Iso Soln 100 Ml IVPB Infused Q8H DIANA Infusion Naloxone HCl 0.1 mg 03/07/24 20:31 Naloxone Hcl 0.4 Mg/Ml Vial IV PUSH Q2M PRN Opiate Reversal Ondansetron HCl 4 mg 03/07/24 14:48 03/07/24 16:40 Ondansetron Inj 4 Mg/2 Ml Vial IV PUSH 4 mg Q4H PRN Administration Nausea Oxycodone/Acetaminophen 1 tablet 03/08/24 16:01 03/08/24 17:39 Oxycodone/Acetaminophen (*Crx) 5-325 Mg Tablet PO 1 tablet Q4H PRN Administration Pain Rated 4-6 Radiology Results: ITS Impressions Abdomen X-Ray 03/07/24 13:54 IMPRESSION: 1. Nasogastric tube tip in the stomach. 2. Mildly distended colon, consistent with distal obstruction. Enema w/Water Soluble 03/07/24 15:13 IMPRESSION: 1. Stricture at the rectal anastomosis with severe partial obstruction. Labs Labs: Laboratory Results - last 24 hr 03/09/24 05:39 WBC 4.2 L RBC 3.51 L Hgb 10.7 L Hct 31.7 L MCV 90.3 MCH 30.5 MCHC 33.8 RDW 12.3 Plt Count 217 MPV 9.8 Immature Gran % (Auto) 0.5 Neut % (Auto) 57.9 Lymph % (Auto) 28.0 [place] % (Auto) 10.0 H Eos % (Auto) 3.1 Baso % (Auto) 0.5 Lymph # (Auto) 1.18 [place] # (Auto) 0.4 Eos # (Auto) 0.1 Baso # (Auto) 0.0 Abs Immat Gran (auto) 0.02 Absolute Neuts (auto) 2.5 Absolute Nucleated RBC 0.000 Nucleated RBC % 0.0 Sodium 134 L Potassium 3.0 L Chloride 108 H Carbon Dioxide 25 Anion Gap 1 L BUN 6 L Creatinine 0.50 L Estim Creat Clear Calc 97 Estimated GFR > 60 Glucose 83 Calcium 7.8 L Total Bilirubin 0.5 AST 19 ALT 9 Alkaline Phosphatase 54 Total Protein 5.0 L Albumin 2.9 L Quality VTE Prophylaxis VTE prophylaxis: mechanical ordered
[2024-03-09] MEDS: ACETAMINOPHEN/BUTALBITAL/CAFFEINE 325-50-40 MG TABLET (FIORICET) 1 TAB PO (09:21)
[2024-03-09] MEDS: FAMOTIDINE 20 MG TABLET PO (09:22)
[2024-03-09] MEDS: ENOXAPARIN 40 MG/0.4 ML SYRINGE SUB-Q (09:23)
[2024-03-09 10:40] VITALS: BP 142/87; PULSE 62; RESP 16; TEMP 36.8; O2SAT 100
--- NOTE | 2024-03-09 10:51 | PM.PNGS ---
Progress Note: A&P Assessment and Plan (1) Large bowel obstruction: Code(s): K56.609 - Unspecified intestinal obstruction, unspecified as to partial versus complete obstruction Status: Acute Assessment and Plan: doing well s/p diverting loop colostomy, ADAT, ok to dc home if aiyana diet, f/u 3 wks Subjective Subjective Date/Time Seen: 03/09/24 10:51 Interval history: feels good, aiyana diet, good ostomy fxn Review of Systems Review of Systems: All systems reviewed & are unremarkable except as noted in HPI and below Exam Const: General: cooperative, comfortable and no acute distress Resp: Auscultation: clear to auscultation bilaterally Cardio: Rate: regular rate Rhythm: regular rhythm GI: Inspection: normal to inspection, Abdominal wall edema, distended and incision GI Palp: Yes abdominal tenderness and Yes Soft to palpation Other: ostomy - pink, viable, swollen, +fxn Objective Data Vital Signs Vital Signs: Vital Signs - 24 hr 03/08/24 14:16 03/08/24 18:16 03/08/24 20:00 Temperature 36.8 C 36.6 C Pulse Rate 73 70 Respiratory Rate 18 18 Blood Pressure 140/79 138/82 Pulse Oximetry 98 99 Oxygen Delivery Room Air 03/08/24 21:37 03/09/24 00:34 03/09/24 05:18 Temperature 36.6 C 36.5 C 36.6 C Pulse Rate 77 72 65 Respiratory Rate 14 14 16 Blood Pressure 129/82 112/75 116/74 Pulse Oximetry 100 99 100 Oxygen Delivery Intake/Output Intake/Output: Intake & Output 03/06/24 03/07/24 03/08/24 03/09/24 23:59 23:59 23:59 23:59 Intake Total 1450 2942 750 Output Total 780 2250 Balance 670 692 750 Meds/Results Medications: Active Medications Generic Name Dose Route Start Last Admin Trade Name Freq PRN Reason Stop Dose Admin Acetaminophen 500 mg 03/08/24 16:01 Acetaminophen 500 Mg Tablet PO Q6H PRN Pain Rated 1-3 Acetaminophen/Butalbital/Caffeine 1 tab 03/09/24 09:01 03/09/24 09:21 Acetaminophen/Butalbital/Caffeine 325-50-40 Mg Tablet (Fioricet) PO 1 tab Q4H PRN Administration Pain Rated 4-6 Hydrocodone Bitart/Acetaminophen 1 tab 03/08/24 16:01 03/08/24 21:13 Hydrocodone/Acetaminophen (*Crx) 7.5-325 Mg Tablet PO 1 tab Q4H PRN Administration Pain Rated 7-10 Benzocaine 1 lozenge 03/07/24 23:06 03/08/24 02:31 Benzocaine/Menthol (*Bkc) 18 Ea Lozenge PO 1 lozenge PRN PRN Administration Sore Throat Enoxaparin Sodium 40 mg 03/08/24 09:00 03/09/24 09:23 Enoxaparin 40 Mg/0.4 Ml Syringe SUB-Q 40 mg DAILY DIANA Administration Famotidine 20 mg 03/08/24 21:00 03/09/24 09:22 Famotidine 20 Mg Tablet PO 20 mg Q12HR DIANA Administration Hydromorphone HCl 1 mg 03/07/24 20:31 03/08/24 23:54 Hydromorphone Hcl Inj (*Crx) 1 Mg/Ml Syr IV PUSH 1 mg Q2H PRN Administration Breakthrough Pain Rated 7-10 or NPO Hydromorphone HCl 0.5 mg 03/07/24 20:31 03/08/24 13:20 Hydromorphone Hcl Inj (*Crx) 1 Mg/Ml Syr IV PUSH 0.5 mg Q2H PRN Administration Breakthrough Pain Rated 4-6 or NPO Lactated Ringer's 1,000 mls @ 100 mls/hr 03/07/24 20:31 03/08/24 21:16 Lr - Lactated Ringers Iv IV CONT 100 mls/hr .Q10H DIANA Administration Ibuprofen 800 mg in 200 mls @ 400 mls/hr 03/07/24 20:31 03/09/24 06:44 Caldolor 800 Mg/200 Ml IVPB Infused Q6H PRN Infusion Breakthrough Pain Rated 1-3 or NPO Cefepime HCl 2 gm in 50 mls @ 100 mls/hr 03/07/24 22:00 03/09/24 05:36 Maxipime 2 Gm/Ns 50 Ml IVPB Infused Q8H DIANA Infusion Metronidazole 500 mg in 100 mls @ 100 mls/hr 03/08/24 02:00 03/09/24 09:24 Flagyl 500 Mg/Iso Soln 100 Ml IVPB 100 mls/hr Q8H DIANA Administration Miscellaneous Information 0 each 03/10/24 00:01 Order Clarification XX 04/09/24 00:00 CLARIFY COUNT INCLUDES THE [facility] Naloxone HCl 0.1 mg 03/07/24 20:31 Naloxone Hcl 0.4 Mg/Ml Vial IV PUSH Q2M PRN Opiate Reversal Ondansetron HCl 4 mg 03/07/24 14:48 03/07/24 16:40 Ondansetron Inj 4 Mg/2 Ml Vial IV PUSH 4 mg Q4H PRN Administration Nausea Oxycodone/Acetaminophen 1 tablet 03/08/24 16:01 03/08/24 17:39 Oxycodone/Acetaminophen (*Crx) 5-325 Mg Tablet PO 1 tablet Q4H PRN Administration Pain Rated 4-6 Radiology Results: ITS Impressions Abdomen X-Ray 03/07/24 13:54 IMPRESSION: 1. Nasogastric tube tip in the stomach. 2. Mildly distended colon, consistent with distal obstruction. Enema w/Water Soluble 03/07/24 15:13 IMPRESSION: 1. Stricture at the rectal anastomosis with severe partial obstruction. Labs Labs: Laboratory Results - last 24 hr 03/09/24 05:39 WBC 4.2 L RBC 3.51 L Hgb 10.7 L Hct 31.7 L MCV 90.3 MCH 30.5 MCHC 33.8 RDW 12.3 Plt Count 217 MPV 9.8 Immature Gran % (Auto) 0.5 Neut % (Auto) 57.9 Lymph % (Auto) 28.0 [place] % (Auto) 10.0 H Eos % (Auto) 3.1 Baso % (Auto) 0.5 Lymph # (Auto) 1.18 [place] # (Auto) 0.4 Eos # (Auto) 0.1 Baso # (Auto) 0.0 Abs Immat Gran (auto) 0.02 Absolute Neuts (auto) 2.5 Absolute Nucleated RBC 0.000 Nucleated RBC % 0.0 Sodium 134 L Potassium 3.0 L Chloride 108 H Carbon Dioxide 25 Anion Gap 1 L BUN 6 L Creatinine 0.50 L Estim Creat Clear Calc 97 Estimated GFR > 60 Glucose 83 Calcium 7.8 L Total Bilirubin 0.5 AST 19 ALT 9 Alkaline Phosphatase 54 Total Protein 5.0 L Albumin 2.9 L
[2024-03-09] MEDS: HYDROcodone/acetaminophen (*CRX) 7.5-325 MG TABLET 1 TAB PO (13:29)
--- NOTE | 2024-03-09 13:46 | P.DS_ITS ---
DS: Admitting Diagnosis Discharge Date 03/09 Admitting Diagnosis abd pain DS: Discharge Diagnosis Discharge Diagnosis (1) Large bowel obstruction: Code(s): K56.609 - Unspecified intestinal obstruction, unspecified as to partial versus complete obstruction Status: Acute (2) S/P colectomy: Code(s): Z90.49 - Acquired absence of other specified parts of digestive tract Status: Acute (3) Colon cancer: Qualifiers: Colon location: unspecified part of colon Qualified Code(s): C18.9 - Malignant neoplasm of colon, unspecified Code(s): C18.9 - Malignant neoplasm of colon, unspecified Status: Acute DS: Summary Hospital Course Hospital Course: This is a 44-year-old female with a significant past medical history of stage III colon cancer status post colectomy and reanastomosis who presented to the hospital with complaint of abdominal pain. Patient reports that she has not had a bowel movement since 03/04/25 and started having cramping on . She was initially seen at an ER in [facility] and had a CT scan that shown stool throughout the colon and stricture at the anastomosis site. She was offered surgery there but declined. She then drove herself here as she had the original surgery with Dr. Hathaway on 06/22/23 of this year. NG tube was placed in our ED due to the development of nausea and vomiting. She denies any fever, chills,diarrhea, chest pain, or shortness of breath. She endorses nausea, vomiting, and abdominal pain. Workup in abdomen x-ray which showed NG tube in the stomach, mildly distended colon consistent with distal obstruction. Initial labs showed a normal white blood cell count of 7.4, sodium 132, potassium 3.3, bicarb 19. A UA was obtained and showed cloudy appearance, 1+ urine protein, 3+ urine ketones, 3-5 urine RBC, 6-10 urine WBC, many urine squamous epithelial cells, 2+ urine bacteria. test was negative. Urine culture was obtained and pending. EKG showed sinus rhythm with a rate of 66, QTC 458. Patient was given 1 L of normal saline, Ativan, morphine, and Zofran while in the ED. General surgery was consulted and took patient to the OR for creation of diverting transverse colostomy by Dr. Alvarez. UA was collected on 03/07- no growth. NG tube was d/meron. Diet is advanced and pt is tolerating it well Patient states she is feeling much better today. Family is at the bedside. Colostomy has stool present. She states her pain is well controlled. Labs reviewed. no nausea. f/u with surgery in 3 weeks. Status at Discharge Functional status at discharge: independent ambulation Overall status at discharge: patient is back to baseline Time Spent with Patient Time attestation: Total time spent providing and/or coordinating discharge services: Time spent: Greater than 30 minutes Exam Narrative: General: In no acute distress, well nourished Cardiac: Normal S1 and S2. No murmur, gallops or friction rubs, peripheral pulses intact. Respiratory: Lungs clear to auscultation, no adventitious lung sounds Gastrointestinal: soft, non-distended, non-tender, normoactive bowel sounds, diverting colostomy with pink stoma--stool noted in bag, NG tube to LIS : voiding without difficulty. Neuro: Alert and oriented x4 DS: Data Data Completed and Pending Labs on day of discharge: Labs from last 24 hours 03/09/24 05:39 WBC 4.2 L RBC 3.51 L Hgb 10.7 L Hct 31.7 L MCV 90.3 MCH 30.5 MCHC 33.8 RDW 12.3 Plt Count 217 MPV 9.8 Immature Gran % (Auto) 0.5 Neut % (Auto) 57.9 Lymph % (Auto) 28.0 [place] % (Auto) 10.0 H Eos % (Auto) 3.1 Baso % (Auto) 0.5 Lymph # (Auto) 1.18 [place] # (Auto) 0.4 Eos # (Auto) 0.1 Baso # (Auto) 0.0 Abs Immat Gran (auto) 0.02 Absolute Neuts (auto) 2.5 Absolute Nucleated RBC 0.000 Nucleated RBC % 0.0 Sodium 134 L Potassium 3.0 L Chloride 108 H Carbon Dioxide 25 Anion Gap 1 L BUN 6 L Creatinine 0.50 L Estim Creat Clear Calc 97 Estimated GFR > 60 Glucose 83 Calcium 7.8 L Total Bilirubin 0.5 AST 19 ALT 9 Alkaline Phosphatase 54 Total Protein 5.0 L Albumin 2.9 L Discharge Plan Discharge Attending physician on discharge: Max Mccray Consulting providers: Héctor Alvarez Discharging Clinician: Antonina Rodriguez Activity: may shower and no straining Diet: as tolerated Discharge Instructions: YOu were admitted for intestinal obstruction. Had diverting colostomy, NG tube was removed and surgery advanced your diet which you tolerated well. you received flagyl and cefepime antibiotics around the time of your surgery and after to reduce possibility for infections. Please follow up with surgery in 3 weeks as directed. Per Care Coordination: Call Il[facility] Escalona to order ostomy supplies. [phone]. Will need to call to set up an account and provide list of supplies needed and surgeon's name, Dr. Héctor Alvarez. Patient Language: [place] Follow-up/Referrals: Héctor Alvarez MD [Physician] - 3 Weeks Discharge Medications: New hydrocodone-acetaminophen 7.5-325 mg tablet 1 tablet PO Q6H PRN (Reason: pain) Qty: 30 0RF Continued metformin 500 mg tablet extended release 24 hr 500 mg PO DAILY naltrexone-bupropion 8-90 mg tablet extended release 1 tablet PO ONCE bupropion HCl [Wellbutrin XL] 300 mg tablet extended release 24 hr 300 mg PO DAILY Date of admission: 03/07/24 17:41 Primary Care Provider: UNKNOWN,DOCTOR Admitting Provider: Max Mccray Attending physician on admission: Max Mccray Condition: Guarded Prognosis Quality VTE Prophylaxis VTE prophylaxis: mechanical ordered Hospitalist MIPS Heart Failure (Exclusion) Patient has history of Heart Transplant or Left Ventricular Assistive Device?: No IF YES, STOP HERE Heart Failure (Qualifier) Patient has current or prior documentation of LVEF less than or equal to 40%, or mod/servere depressed LVSF?: No IF NO, STOP HERE
== END 2024-03-09 14:30 | disposition home or self-care (01) | DRG 330 ==
LOC: ANHED 14:57 → ANH2MED 17:12
PROVIDERS: Nurse Practitioner Acute Care; Surgery; Admitting Provider General Practice; Emergency Provider Emergency Medicine; Visit Provider General Practice
PROC: 0D1L0Z4 Bypass Transverse Colon to Cutaneous, Open Approach (ICD-10-PCS; CPT 44320; principal; 2024-03-07 19:30)
DX: K56.699 Other intestinal obstruction unspecified as to partial versus complete obstruction (principal); K91.89 Other postprocedural complications and disorders of digestive system; Z85.038 Personal history of other malignant neoplasm of large intestine; Z90.49 Acquired absence of other specified parts of digestive tract
CPT/HCPCS: 36415; 74270; 80048; 80053; 81001; 81025; 83690; 85025; 85027; 87086; 96361; 96365; 96375; 96376; 99285; A9270; G0378; J0330; J0690; J0692; J1100; J1171; J1650; J1741; J1836; J2060; J2250; J2270; J2405; J2550; J2704; J3010; J3480; J7030; J7120